=== PATIENT | female | born 2000 | race African-American/Black ===

== ENCOUNTER → 2022-01-10 15:47 | Outpatient (CLI) | payer OTHER, MEDICAID, SELFPAY ==
[2022-01-10 16:40] LABS: Influenza A - CEPHEID Flu A NEGATIVE (NEGATIVE); Influenza B - CEPHEID Flu B NEGATIVE (NEGATIVE); Respiratory Syncytial Virus Negative (Negative)
[2022-01-10 16:46] LABS: COVID-19 CEPHEID 4-PLEX PCR Negative (Negative)
== END ==
PROVIDERS: Visit Provider Nurse Practitioner Family
DX: R09.81 Nasal congestion (principal)
CPT/HCPCS: 0241U

== ENCOUNTER 2022-03-19 09:44 | Inpatient (IN) | payer OTHER, MEDICAID, SELFPAY ==
[2022-03-19] VITALS (35 sets, daily range): BP systolic 86–130; BP diastolic 53–84; PULSE 75–127; RESP 15–36; TEMP 36.7–39.4; O2SAT 93–100; BMI 17.6; BMI 18.8
--- NOTE | 2022-03-19 09:57 | DI.RAD.S_ITS ---
PROCEDURE: XR CHEST 1V INDICATIONS: suspected sepsis TECHNIQUE: One view of the chest was acquired. COMPARISON: None. FINDINGS: Surgical changes and devices: None. Lungs and pleura: On this semiupright portable chest examination, no large pneumothorax or large pleural effusions are seen. No focal infiltrates are seen. Mediastinum: Mediastinal contours appear normal. Heart size is normal. Bones and chest wall: No suspicious bony lesions. Overlying soft tissues appear unremarkable. IMPRESSION: No focal infiltrates are seen. Dictated by: Robb Larios M.D. on 03/19/2022 at 9:41 Approved by: Robb Larios M.D. on 03/19/2022 at 9:41
[2022-03-19 10:18] LABS: Add Manual Diff / Slide Review NO; Basophils Absolute Auto 0 /uL (0-100); Basophils Percent Auto 0.8 % (0-2); Eosinophils Absolute Auto 0 /uL (0-450); Hematocrit 28.3 % (36-46); Hemoglobin 9.4 g/dL (12.0-16.0); Lymphocytes Absolute Auto 1200 /uL (1100-4500); Lymphocytes Percent Auto 37.3 % (25-40); Mean Corpuscular HGB Conc 33.1 % (30-36); Mean Corpuscular Volume 84.5 fL (80-100); Monocytes Absolute Auto 100 /uL (0-900); Monocytes Percent Auto 3.3 % (3-14); Neutrophils Absolute Auto 1800 /uL (1500-7000); Neutrophils Percent Auto 58.6 % (50-75); Platelet Count 145 X10^3/uL (150-400); Red Blood Cell Count 3.35 X10^6/uL (4.0-5.2); Red Cell Distribution Width 15.3 % (11.6-14.8); White Blood Cell Count 3.1 X10^3/uL (4.5-11.0)
[2022-03-19 10:20] LABS: INR 1.2 (0.9-1.3); Prothrombin Time 13.6 SECONDS (10.1-12.7)
[2022-03-19 10:23] LABS: PTT Partial Thromboplastin Tim 36 SECONDS (26-36)
[2022-03-19 10:24] LABS: Alanine Aminotransferase 45 IU/L (<35); Albumin 4.1 g/dL (3.5-5.0); Albumin Globulin Ratio 0.7 (1.0-2.8); Alkaline Phosphatase 61 U/L (38-126); Aspartate Aminotransferase 139 IU/L (14-36); BUN Creatinine Ratio 15.5 (6-22); Blood Urea Nitrogen 9 mg/dL (7-17); Calcium 8.2 mg/dL (8.4-10.2); Carbon Dioxide 22 mmol/L (22-32); Chloride 90 mmol/L (98-107); Estimated Glomerular Filt Rate > 60 mL/min (>60); Globulin 5.6 g/dL (1.7-4.1); Glucose 93 mg/dL (70-100); Lactate (Lactic Acid) 1.3 mmol/L (0.7-2.1); Lipase 445 U/L (23-300); Potassium 3.9 mmol/L (3.4-5.1); Sodium 126 mmol/L (137-145); Total Protein 9.7 g/dL (6.3-8.2)
[2022-03-19] MEDS: SODIUM CHLORIDE 0.9% 1,000 ML 1000 ML IV (10:39)
[2022-03-19 10:40] LABS: Influenza A - CEPHEID Flu A NEGATIVE (NEGATIVE); Influenza B - CEPHEID Flu B NEGATIVE (NEGATIVE); Respiratory Syncytial Virus Negative (Negative)
[2022-03-19] MEDS: ACETAMINOPHEN 325 MG TABLET 975 MG PO (10:41)
[2022-03-19] MEDS: ONDANSETRON 4 MG/2 ML INJ IV (10:41)
[2022-03-19 10:42] LABS: HEMOLYSIS < 15 (0-50); Procalcitonin 1.17 ng/mL (<0.5)
--- NOTE | 2022-03-19 10:56 | ED.FEVER ---
HPI - Fever General Chief Complaint: Fever Stated Complaint: 5 days vomitting, hx of RA, lethargic Time Seen by Provider: 03/19/22 10:27 Source: patient Mode of arrival: Ambulatory Limitations: no limitations History of Present Illness HPI Narrative: This is a 22-year-old female with history of rheumatoid arthritis who has been off medications for about a year. She states she was on prednisone before she is never been on any other immune modulators. No other daily medications she has had a cholecystectomy. She presents with fevers, decreased appetite, cough with brownish sputum, nausea and vomiting no bowel movement for the past 5 days. Patient states she is had some chest pain some sensation of shortness of breath. She states she is had some brown productive sputum no bright red blood. She states she is had pain she describes it more on the left side of her abdomen in the left flank and side. Patient states no bowel movement in the past 5 days but has been stooling regularly. She states she is been able to keep some fluids down but no solids. She presents today with her persistent symptoms. Patient states she is allergic to Toradol makes her feel tingling, numb and rash out. No tobacco, no alcohol, no illicit. She does not have a primary care currently. She is accompanied by Estee who is a friend/landlord. Patient lab work noted that she has pancytopenia patient is not aware of any history of anemia or other changes to her blood work in the past. No priors available for comparison. Related Data Home Medications Medication Instructions Recorded Confirmed No Known Home Medications 03/19/22 03/19/22 Allergies Allergy/AdvReac Type Severity Reaction Status Date / Time ketorolac [From Toradol] AdvReac tingling Verified 03/19/22 10:04 and numbness Review of Systems Review of Systems ROS Unobtainable: All systems reviewed & are unremarkable except as noted in HPI and below Patient History Medical History (Updated 03/19/22 @ 15:16 by Yanick Olivares DO) Rheumatoid arthritis Surgical History (Updated 03/19/22 @ 15:16 by Yanick Olivares DO) History of cholecystectomy Family History (Updated 03/19/22 @ 15:17 by Yanick Olivares DO) Mother Arthritis Father No pertinent past medical history Social History Smoking Status: Former smoker alcohol intake: current Smoking Status: Former smoker alcohol intake frequency: 0-2 drinks per day Substance Use Type: marijuana Exam Narrative Exam Narrative: GEN: Thin female, alert and oriented x 3, patient appears to be in moderate distress. HEENT: Atraumatic, pupils are equal round reactive to light, extraocular movements are intact, nares are clear, no hoarseness. No meningeal signs. HEART: Tachycardic but Regular rate and rhythm without murmur, clicks, rubs. No JVD. LUNGS:Lungs clear to auscultation, no wheezes, rales, crackles, chest moves symmetrically, mild tachypnea. Patient has dry nonproductive cough in the room. ABD:bowel sounds normal, soft, patient has mild tenderness but significantly so right upper quadrant., no guarding, rebound, rigidity, no masses noted, no hepatosplenomegaly, nondistended. :No CVA tenderness MSCL: Non-tender, no muscle atrophy, muscles strength 5/5 upper and lower extremities, full range of motion NEURO:CN 2-12 intact, sensation normal SKIN: Rash, erythema or other skin changes. Initial Vital Signs Initial Vital Signs: Vital Signs Temperature 102.9 F H 03/19/22 09:50 Pulse Rate 127 H 03/19/22 09:50 Respiratory Rate 28 H 03/19/22 09:50 Blood Pressure 130/68 03/19/22 09:50 Pulse Oximetry 100 03/19/22 09:50 Oxygen Delivery Method 03/19/22 09:50 Course Orders Ordered: ED Orders 03/19/22 09:55 Complete Blood Count AUTO DIFF Stat Comprehensive Metabolic Panel Stat Lactate (Lactic Acid) Stat Lipase Stat Partial Thromboplastin Time Stat Test Serum,Qual Stat Procalcitonin Stat Prothrombin Time INR Stat 03/19/22 09:57 XR chest 1V Stat 03/19/22 10:48 EKG-12 Lead Stat 03/19/22 11:07 CT abdomen pelvis w con Stat 03/19/22 11:20 Blood Culture Stat 03/19/22 11:34 UA Complete [Urinalysis and Microscopic] Stat Acetaminophen (Acetaminophen 325 Mg Tablet) 650 mg PO Q6H PRN PRN Reason: Fever/Mild Pain (1-3) Enoxaparin Sodium (Enoxaparin 40 Mg/0.4 Ml Syringe) 40 mg SUBCUT DAILY [facility] Hydromorphone HCl (Hydromorphone 0.5 Mg Inj) 0.5 mg IV Q4H PRN PRN Reason: Pain, Severe (7-10) Last Admin: 03/19/22 15:22 Dose: 0.5 mg Documented By: MOSES Sodium Chloride (Normal Saline 0.9%) 1,000 mls @ 100 mls/hr IV CONT ALISA Last Admin: 03/19/22 15:19 Dose: 100 mls/hr Documented By: MOSES Ceftriaxone Sodium 2,000 mg/ (Sodium Chloride) 100 mls @ 200 mls/hr IV Q24H [facility] Last Infusion: 03/19/22 17:36 Dose: 0 mls/hr Documented By: Admin: 03/19/22 16:17 Dose: 200 mls/hr Documented By: MOSES Azithromycin 500 mg/ Dextrose 250 mls @ 250 mls/hr IV Q24H [facility] Stop: 03/22/22 17:59 Last Admin: 03/19/22 17:36 Dose: 250 mls/hr Documented By: MOSES Ibuprofen (Ibuprofen 600 Mg Tablet) 600 mg PO Q6H PRN PRN Reason: Fever/Mild Pain (1-3) Naloxone HCl (Naloxone 0.4 Mg/Ml Vial) 0.2 mg IV Q2MIN PRN PRN Reason: Opiate Reversal Ondansetron HCl (Ondansetron 4 Mg/2 Ml Inj) 4 mg IV Q8HR PRN PRN Reason: Nausea And Vomiting Oxycodone HCl (Oxycodone Ir 5 Mg Tablet) 5 mg PO Q3H PRN PRN Reason: Pain, Moderate (4-6) Discontinued Medications Acetaminophen (Acetaminophen 325 Mg Tablet) 975 mg PO NOW ONE Stop: 03/19/22 10:28 Last Admin: 03/19/22 10:41 Dose: 975 mg Documented By: MC Sodium Chloride (Normal Saline 0.9%) 1,000 mls @ 1,000 mls/hr IV BOLUS ONE Stop: 03/19/22 10:56 Last Infusion: 03/19/22 11:30 Dose: 0 mls/hr Documented By: Admin: 03/19/22 10:39 Dose: 1,000 mls/hr Documented By: MC Lactated Ringer's (Lactated Ringers) 1,728.18 mls @ 576.06 mls/hr 30 ml/kg infuse over 3 hr (1728.18 ml) IV NOW ONE Stop: 03/19/22 14:06 Last Infusion: 03/19/22 14:39 Dose: 0 mls/hr Documented By: Infusion: 03/19/22 13:18 Dose: 999 mls/hr Documented By: Admin: 03/19/22 11:45 Dose: 576.06 mls/hr Documented By: MOISÉS Piperacillin Sod/Tazobactam (Sod 4.5 gm/ Sodium Chloride) 100 mls @ 200 mls/hr IV NOW ONE Stop: 03/19/22 11:08 Last Infusion: 03/19/22 12:37 Dose: 0 mls/hr Documented By: Admin: 03/19/22 11:52 Dose: 200 mls/hr Documented By: MOISÉS Acetaminophen (Ofirmev) 1,000 mg in 100 mls @ 400 mls/hr IV NOW ONE Stop: 03/19/22 12:14 Last Infusion: 03/19/22 13:20 Dose: 0 mls/hr Documented By: Admin: 03/19/22 13:04 Dose: 400 mls/hr Documented By: MOISÉS Vancomycin HCl (Vancomycin) 1,000 mg in 200 mls @ 200 mls/hr IV NOW ONE Stop: 03/19/22 14:06 Last Infusion: 03/19/22 14:30 Dose: 0 mls/hr Documented By: MOISÉS(2) Admin: 03/19/22 13:22 Dose: 200 mls/hr Documented By: MOISÉS Lactated Ringer's (Lactated Ringers) 1,000 mls @ 1,000 mls/hr IV BOLUS ONE Stop: 03/19/22 14:29 Last Admin: 03/19/22 14:30 Dose: 1,000 mls/hr Documented By: MOISÉS(2) Morphine Sulfate (Morphine 4 Mg/Ml Inj) 4 mg IV NOW ONE Stop: 03/19/22 11:08 Last Admin: 03/19/22 11:41 Dose: 4 mg Documented By: MOISÉS Ondansetron HCl (Ondansetron 4 Mg/2 Ml Inj) 4 mg IV NOW PRN PRN Reason: Nausea And Vomiting Last Admin: 03/19/22 10:41 Dose: 4 mg Documented By: MC Vital Signs Vital signs: Vital Signs - 8 hr 03/19/22 10:41 03/19/22 10:30 03/19/22 10:39 Temperature 102.3 F H Pulse Rate 105 H Respiratory Rate 36 H Blood Pressure 116/80 Pulse Oximetry 99 Oxygen Delivery Method 03/19/22 10:39 03/19/22 10:45 03/19/22 10:45 Temperature Pulse Rate 107 H 113 H Respiratory Rate 27 H 35 H Blood Pressure 121/83 Pulse Oximetry 100 100 Oxygen Delivery Method Room Air 03/19/22 11:00 03/19/22 11:00 03/19/22 11:15 Temperature Pulse Rate 102 H Respiratory Rate 28 H Blood Pressure 123/78 126/84 Pulse Oximetry 100 Oxygen Delivery Method 03/19/22 11:15 03/19/22 11:43 03/19/22 11:47 Temperature Pulse Rate 104 H 97 H 101 H Respiratory Rate 33 H Blood Pressure Pulse Oximetry 100 100 100 Oxygen Delivery Method 03/19/22 11:47 03/19/22 12:00 03/19/22 12:00 Temperature Pulse Rate 97 H Respiratory Rate 21 Blood Pressure 108/67 111/67 Pulse Oximetry 99 Oxygen Delivery Method 03/19/22 12:15 03/19/22 12:15 03/19/22 12:30 Temperature Pulse Rate 94 H Respiratory Rate 26 H Blood Pressure 97/53 L 95/53 L Pulse Oximetry 100 Oxygen Delivery Method 03/19/22 12:30 03/19/22 13:00 03/19/22 13:00 Temperature 100 F H Pulse Rate 93 H 97 H Respiratory Rate 28 H 33 H Blood Pressure 86/64 L Pulse Oximetry 100 100 Oxygen Delivery Method Room Air 03/19/22 13:01 03/19/22 13:01 03/19/22 13:15 Temperature Pulse Rate 93 H Respiratory Rate 27 H Blood Pressure 89/61 L 95/64 Pulse Oximetry 100 Oxygen Delivery Method 03/19/22 13:15 03/19/22 13:27 03/19/22 13:27 Temperature Pulse Rate 83 86 Respiratory Rate 24 Blood Pressure 100/59 L Pulse Oximetry 100 100 Oxygen Delivery Method Room Air 03/19/22 13:30 03/19/22 13:30 Temperature Pulse Rate 87 Respiratory Rate 21 Blood Pressure 110/65 Pulse Oximetry 99 Oxygen Delivery Method Room Air MDM - Fever Lab Data 03/19/22 09:55 03/19/22 09:55 Labs: Lab Results 03/19/22 03/19/22 03/19/22 Range/Units 08:55 09:55 09:55 WBC 3.1 L (4.5-11.0) X10^3/uL RBC 3.35 L (4.0-5.2) X10^6/uL Hgb 9.4 L (12.0-16.0) g/dL Hct 28.3 L (36-46) % MCV 84.5 (80-100) fL MCH 28.0 (26-34) PG MCHC 33.1 (30-36) % RDW 15.3 H (11.6-14.8) % Plt Count 145 L (150-400) X10^3/uL Neut % (Auto) 58.6 (50-75) % Lymph % (Auto) 37.3 (25-40) % Gordon % (Auto) 3.3 (3-14) % Eos % (Auto) 0.0 L (2-4) % Baso % (Auto) 0.8 (0-2) % Neut # (Auto) 1800 (9950-7482) /uL Lymph # (Auto) 1200 (5393-9146) /uL Gordon # (Auto) 100 (0-900) /uL Eos # (Auto) 0 (0-450) /uL Baso # (Auto) 0 (0-100) /uL ESR (0-20) MM/HR PT 13.6 H (10.1-12.7) SECONDS INR 1.2 (0.9-1.3) APTT 36 (26-36) SECONDS Sodium (137-145) mmol/L Potassium (3.4-5.1) mmol/L Chloride (98-107) mmol/L Carbon Dioxide (22-32) mmol/L BUN (7-17) mg/dL Creatinine (0.52-1.04) mg/dL Estimated GFR (>60) mL/min BUN/Creatinine Ratio (6-22) Glucose (70-100) mg/dL Lactate (0.7-2.1) mmol/L Calcium (8.4-10.2) mg/dL Total Bilirubin (0.2-1.3) mg/dL AST (14-36) IU/L ALT (<35) IU/L Alkaline Phosphatase (38-126) U/L C-Reactive Protein (<1.0) mg/dL Total Protein (6.3-8.2) g/dL Albumin (3.5-5.0) g/dL Globulin (1.7-4.1) g/dL Albumin/Globulin Ratio (1.0-2.8) Lipase (23-300) U/L Procalcitonin (<0.5) ng/mL Serum , Qual (Negative) Urine Color Urine Appearance Urine pH (4.5-8.0) Ur Specific [place] (1.000-1.035) Urine Protein (Negative) Urine Glucose (UA) (Negative) g/dL Urine Ketones (NEGATIVE) Urine Occult Blood (Negative) Urine Nitrate (Negative) Urine Bilirubin (NEGATIVE) Urine Urobilinogen (0.2) E.U./dL Ur Leukocyte Esterase (NEGATIVE) Urine RBC (0-5/HPF) Urine WBC (0-5/HPF) Ur Squamous Epith Cells (0-5/HPF) Amorphous Sediment Urine Bacteria (None) Ur Culture Indicated? SARS-CoV-2 (PCR) Negative (Negative) Influenza A (RT-PCR) Flu a negative (NEGATIVE) Influenza B (RT-PCR) Flu b negative (NEGATIVE) RSV (PCR) Negative (Negative) Blood Type Antibody Screen 03/19/22 03/19/22 03/19/22 Range/Units 09:55 09:55 09:55 WBC (4.5-11.0) X10^3/uL RBC (4.0-5.2) X10^6/uL Hgb (12.0-16.0) g/dL Hct (36-46) % MCV (80-100) fL MCH (26-34) PG MCHC (30-36) % RDW (11.6-14.8) % Plt Count (150-400) X10^3/uL Neut % (Auto) (50-75) % Lymph % (Auto) (25-40) % Gordon % (Auto) (3-14) % Eos % (Auto) (2-4) % Baso % (Auto) (0-2) % Neut # (Auto) (1530-7982) /uL Lymph # (Auto) (8319-8589) /uL Gordon # (Auto) (0-900) /uL Eos # (Auto) (0-450) /uL Baso # (Auto) (0-100) /uL ESR (0-20) MM/HR PT (10.1-12.7) SECONDS INR (0.9-1.3) APTT (26-36) SECONDS Sodium 126 L (137-145) mmol/L Potassium 3.9 (3.4-5.1) mmol/L Chloride 90 L (98-107) mmol/L Carbon Dioxide 22 (22-32) mmol/L BUN 9 (7-17) mg/dL Creatinine 0.58 (0.52-1.04) mg/dL Estimated GFR > 60 (>60) mL/min BUN/Creatinine Ratio 15.5 (6-22) Glucose 93 (70-100) mg/dL Lactate 1.3 (0.7-2.1) mmol/L Calcium 8.2 L (8.4-10.2) mg/dL Total Bilirubin 1.0 (0.2-1.3) mg/dL AST 139 H (14-36) IU/L ALT 45 H (<35) IU/L Alkaline Phosphatase 61 (38-126) U/L C-Reactive Protein (<1.0) mg/dL Total Protein 9.7 H (6.3-8.2) g/dL Albumin 4.1 (3.5-5.0) g/dL Globulin 5.6 H (1.7-4.1) g/dL Albumin/Globulin Ratio 0.7 L (1.0-2.8) Lipase 445 H (23-300) U/L Procalcitonin 1.17 H (<0.5) ng/mL Serum , Qual Negative (Negative) Urine Color Urine Appearance Urine pH (4.5-8.0) Ur Specific [place] (1.000-1.035) Urine Protein (Negative) Urine Glucose (UA) (Negative) g/dL Urine Ketones (NEGATIVE) Urine Occult Blood (Negative) Urine Nitrate (Negative) Urine Bilirubin (NEGATIVE) Urine Urobilinogen (0.2) E.U./dL Ur Leukocyte Esterase (NEGATIVE) Urine RBC (0-5/HPF) Urine WBC (0-5/HPF) Ur Squamous Epith Cells (0-5/HPF) Amorphous Sediment Urine Bacteria (None) Ur Culture Indicated? SARS-CoV-2 (PCR) (Negative) Influenza A (RT-PCR) (NEGATIVE) Influenza B (RT-PCR) (NEGATIVE) RSV (PCR) (Negative) Blood Type Antibody Screen 03/19/22 03/19/22 03/19/22 Range/Units 09:55 09:55 11:34 WBC (4.5-11.0) X10^3/uL RBC (4.0-5.2) X10^6/uL Hgb (12.0-16.0) g/dL Hct (36-46) % MCV (80-100) fL MCH (26-34) PG MCHC (30-36) % RDW (11.6-14.8) % Plt Count (150-400) X10^3/uL Neut % (Auto) (50-75) % Lymph % (Auto) (25-40) % Gordon % (Auto) (3-14) % Eos % (Auto) (2-4) % Baso % (Auto) (0-2) % Neut # (Auto) (7779-9751) /uL Lymph # (Auto) (7071-4033) /uL Gordon # (Auto) (0-900) /uL Eos # (Auto) (0-450) /uL Baso # (Auto) (0-100) /uL ESR 99 H (0-20) MM/HR PT (10.1-12.7) SECONDS INR (0.9-1.3) APTT (26-36) SECONDS Sodium (137-145) mmol/L Potassium (3.4-5.1) mmol/L Chloride (98-107) mmol/L Carbon Dioxide (22-32) mmol/L BUN (7-17) mg/dL Creatinine (0.52-1.04) mg/dL Estimated GFR (>60) mL/min BUN/Creatinine Ratio (6-22) Glucose (70-100) mg/dL Lactate (0.7-2.1) mmol/L Calcium (8.4-10.2) mg/dL Total Bilirubin (0.2-1.3) mg/dL AST (14-36) IU/L ALT (<35) IU/L Alkaline Phosphatase (38-126) U/L C-Reactive Protein 2.7 H (<1.0) mg/dL Total Protein (6.3-8.2) g/dL Albumin (3.5-5.0) g/dL Globulin (1.7-4.1) g/dL Albumin/Globulin Ratio (1.0-2.8) Lipase (23-300) U/L Procalcitonin (<0.5) ng/mL Serum , Qual (Negative) Urine Color Yellow Urine Appearance Clear Urine pH 7.0 (4.5-8.0) Ur Specific [place] 1.010 (1.000-1.035) Urine Protein Trace H (Negative) Urine Glucose (UA) Negative (Negative) g/dL Urine Ketones Trace H (NEGATIVE) Urine Occult Blood Negative (Negative) Urine Nitrate Negative (Negative) Urine Bilirubin Negative (NEGATIVE) Urine Urobilinogen 1.0 (0.2) E.U./dL Ur Leukocyte Esterase Negative (NEGATIVE) Urine RBC None seen (0-5/HPF) Urine WBC 0-1/hpf (0-5/HPF) Ur Squamous Epith Cells 0-1 /hpf (0-5/HPF) Amorphous Sediment 1+ Urine Bacteria None seen (None) Ur Culture Indicated? Cult not indicated SARS-CoV-2 (PCR) (Negative) Influenza A (RT-PCR) (NEGATIVE) Influenza B (RT-PCR) (NEGATIVE) RSV (PCR) (Negative) Blood Type Antibody Screen 03/19/22 Range/Units 13:16 WBC (4.5-11.0) X10^3/uL RBC (4.0-5.2) X10^6/uL Hgb (12.0-16.0) g/dL Hct (36-46) % MCV (80-100) fL MCH (26-34) PG MCHC (30-36) % RDW (11.6-14.8) % Plt Count (150-400) X10^3/uL Neut % (Auto) (50-75) % Lymph % (Auto) (25-40) % Gordon % (Auto) (3-14) % Eos % (Auto) (2-4) % Baso % (Auto) (0-2) % Neut # (Auto) (4301-0183) /uL Lymph # (Auto) (0820-4352) /uL Gordon # (Auto) (0-900) /uL Eos # (Auto) (0-450) /uL Baso # (Auto) (0-100) /uL ESR (0-20) MM/HR PT (10.1-12.7) SECONDS INR (0.9-1.3) APTT (26-36) SECONDS Sodium (137-145) mmol/L Potassium (3.4-5.1) mmol/L Chloride (98-107) mmol/L Carbon Dioxide (22-32) mmol/L BUN (7-17) mg/dL Creatinine (0.52-1.04) mg/dL Estimated GFR (>60) mL/min BUN/Creatinine Ratio (6-22) Glucose (70-100) mg/dL Lactate (0.7-2.1) mmol/L Calcium (8.4-10.2) mg/dL Total Bilirubin (0.2-1.3) mg/dL AST (14-36) IU/L ALT (<35) IU/L Alkaline Phosphatase (38-126) U/L C-Reactive Protein (<1.0) mg/dL Total Protein (6.3-8.2) g/dL Albumin (3.5-5.0) g/dL Globulin (1.7-4.1) g/dL Albumin/Globulin Ratio (1.0-2.8) Lipase (23-300) U/L Procalcitonin (<0.5) ng/mL Serum , Qual (Negative) Urine Color Urine Appearance Urine pH (4.5-8.0) Ur Specific [place] (1.000-1.035) Urine Protein (Negative) Urine Glucose (UA) (Negative) g/dL Urine Ketones (NEGATIVE) Urine Occult Blood (Negative) Urine Nitrate (Negative) Urine Bilirubin (NEGATIVE) Urine Urobilinogen (0.2) E.U./dL Ur Leukocyte Esterase (NEGATIVE) Urine RBC (0-5/HPF) Urine WBC (0-5/HPF) Ur Squamous Epith Cells (0-5/HPF) Amorphous Sediment Urine Bacteria (None) Ur Culture Indicated? SARS-CoV-2 (PCR) (Negative) Influenza A (RT-PCR) (NEGATIVE) Influenza B (RT-PCR) (NEGATIVE) RSV (PCR) (Negative) Blood Type O Positive Antibody Screen Negative Imaging Data Chest x-ray: Radiologist's Impression: [address] [address] XRay Report Signed Patient: Cristin Grier MR#: [id number] : 2000 Acct:[id number] Age/Sex: 22 / F Date of Service: 03/19/22 Loc: ED Accession Number: [id number] ?? Procedure: XR chest 1V Ordering Provider: Daniela Josue D.O. PROCEDURE:? XR CHEST 1V ? INDICATIONS:? suspected sepsis ? TECHNIQUE:? One view of the chest was acquired.? ? COMPARISON:? None. ? FINDINGS:? ? Surgical changes and devices:? None.? ? Lungs and pleura:? On this semiupright portable chest examination, no large pneumothorax or large pleural effusions are seen.? No focal infiltrates are seen.? ? Mediastinum:? Mediastinal contours appear normal.? Heart size is normal.? ? Bones and chest wall:? No suspicious bony lesions.? Overlying soft tissues appear unremarkable.? IMPRESSION:? No focal infiltrates are seen. ? ? Dictated by: Robb Larios M.D. on 03/19/2022 at 9:41 ? ? Approved by: Robb Larios M.D. on 03/19/2022 at 9:41?? CT scan - abdomen/pelvis: Radiologist's Impression: [address] [address] [address] Scan Report Signed Patient: Cristin Grier MR#: [id number] : 2000 Acct:[id number] Age/Sex: 22 / F Date of Service: 03/19/22 Loc: ED Accession Number: [id number] ?? Procedure: CT abdomen pelvis w con Ordering Provider: Daniela Josue D.O. PROCEDURE:? CT ABDOMEN PELVIS W CON ? INDICATIONS:? ruq pain, hx mary anne, fever, n/v no BM x 5 days. +flatus ? TECHNIQUE:? After the administration of IV contrast, axial sections were acquired from the lung bases to the pubic symphysis.? Coronal and sagittal reformats were performed.? For radiation dose reduction, the following was used:? automated exposure control, adjustment of mA and/or kV according to patient size. ? COMPARISON:? None. ? FINDINGS:? Image quality:? Excellent.? ? Lung bases:? Unremarkable.? ? Heart:? No significant findings. ? ? ABDOMEN: Liver:? No focal lesion.? Periportal edema.? ? Gallbladder:? Absent. Biliary ducts:? Unremarkable.? ? Pancreas:? Unremarkable.? ? Spleen:? Unremarkable.? ? Adrenal Glands:? No nodule. Kidneys and Ureters:? No hydronephrosis. ? Stomach and Bowel:? Stomach, small bowel loops, and colon are unremarkable.? The appendix is not dilated. Peritoneum:? No abnormal intraperitoneal fluid.? No free air.? ? Ventral Wall: ? No hernia.? Abdominal Nodes:? No retroperitoneal or mesenteric adenopathy by size criteria.? Vessels:? Aorta and inferior vena cava are normal in size.? ? PELVIS: Pelvic Organs:? Anteverted uterus.? ? Bladder:? No stone.? Mildly distended. Pelvic Nodes: No enlarged lymph nodes.? Miscellaneous: No inguinal hernias are seen. ? ? ? Bones:? No suspicious lesion. ? ? IMPRESSION:? Suspect periportal edema.? This is a nonspecific finding but could be seen in the setting of hepatitis or duodenitis. ? No small bowel obstruction. The appendix is not dilated No free fluid.? ? Dictated by: Sudheer Shafer M.D. on 03/19/2022 at 13:11 ? ? Approved by: Sudheer Shafer M.D. on 03/19/2022 at 13:18?? ECG Data Attestation: I personally reviewed and interpreted this ECG as follows: Interpretation: Sinus tachycardia rate of 101 TX 136 QRS is 70 QTC of 409. No acute ST elevation depression noted. MDM Narrative Medical decision making narrative: This is a 19-year-old female who presents with fever, tachycardia patient does have a history of rheumatoid arthritis she is been off her medications for at least a year she is on prednisone previously but she states not any other immune modulators. Patient has had history of remote cholecystectomy she is had symptoms for 5 days some see more upper respiratory or possibly pneumonia but she is also had abdominal pain and nausea and vomiting but no bowel movement for 5 days but is passing gas regularly. She complains more of left-sided pain but on examination she is significantly tender in the right upper quadrant. Patient has cough in the room but lungs are clear. Labs show pancytopenia with a white count of 3.1 hemoglobin 9 4 crit of 28 platelets 141 unclear if this is new or old for her or change from her baseline. Coags are normal, she does have hyponatremia with a sodium of 126, potassium 0.9, chloride 90, CO2 22 with a BUN of 9 creatinine 0.58, glucose of 93 and a lactate of 1.3. Bili is 1, AST is 139, ALT is 45 alk phos 61 lipase is 445. Procalcitonin 0.17. Patient started on sepsis fluids 30 cc/kilos bolus, Zofran, dose of pain medication and plan for oral Tylenol when she is able to tolerate. Patient was covered with initial dose of Zosyn for suspected intra-abdominal infection. Chest x-ray is clear and based on her tenderness CT abdomen pelvis was ordered and patient has suspected periportal edema nonspecific finding but could be seen in the setting hepatitis or duodenitis otherwise negative. Chest x-ray negative. No exact clear source is found for patient. She had a dip in her blood pressure given additional fluids does seem to be helpful. I spoke with Dr. Kennedy who accepts for observation for sepsis but no clear source, pancytopenia, elevated LFTs. Critical Care Time Critical Care Time Critical Care Time: Yes Total Critical Care Time: 45 Attestation: The high probability of a clinically significant, sudden or life threatening deterioration of the [cardiac, pulm] system(s) required my full and direct attention, intervention and personal management. The aggregate critical care time was [] minutes. This time is in addition to time spent performing reported procedures but includes the following: [x] Data Review and interpretation [x] Patient assessment and monitoring of vital signs [x] Documentation [x] Medication orders and management Discharge Plan Departure Patient Disposition: Admitted As Inpatient Clinical Impression: Sepsis, Pancytopenia Admit Date/Time: 03/19/22 13:32 Admit Provider: Yanick Olivares
--- NOTE | 2022-03-19 11:07 | DI.CT.S_ITS ---
PROCEDURE: CT ABDOMEN PELVIS W CON INDICATIONS: ruq pain, hx mary anne, fever, n/v no BM x 5 days. +flatus TECHNIQUE: After the administration of IV contrast, axial sections were acquired from the lung bases to the pubic symphysis. Coronal and sagittal reformats were performed. For radiation dose reduction, the following was used: automated exposure control, adjustment of mA and/or kV according to patient size. COMPARISON: None. FINDINGS: Image quality: Excellent. Lung bases: Unremarkable. Heart: No significant findings. ABDOMEN: Liver: No focal lesion. Periportal edema. Gallbladder: Absent. Biliary ducts: Unremarkable. Pancreas: Unremarkable. Spleen: Unremarkable. Adrenal Glands: No nodule. Kidneys and Ureters: No hydronephrosis. Stomach and Bowel: Stomach, small bowel loops, and colon are unremarkable. The appendix is not dilated. Peritoneum: No abnormal intraperitoneal fluid. No free air. Ventral Wall: No hernia. Abdominal Nodes: No retroperitoneal or mesenteric adenopathy by size criteria. Vessels: Aorta and inferior vena cava are normal in size. PELVIS: Pelvic Organs: Anteverted uterus. Bladder: No stone. Mildly distended. Pelvic Nodes: No enlarged lymph nodes. Miscellaneous: No inguinal hernias are seen. Bones: No suspicious lesion. IMPRESSION: Suspect periportal edema. This is a nonspecific finding but could be seen in the setting of hepatitis or duodenitis. No small bowel obstruction. The appendix is not dilated No free fluid. Dictated by: Sudheer Shafer M.D. on 03/19/2022 at 13:11 Approved by: Sudheer Shafer M.D. on 03/19/2022 at 13:18
[2022-03-19 11:27] LABS: Pregnancy Test Serum,Qual Negative (Negative)
[2022-03-19 11:28] LABS: COVID-19 CEPHEID 4-PLEX PCR Negative (Negative)
[2022-03-19] MEDS: MORPHINE 4 MG/ML INJ IV ×2 (11:41→20:35)
--- NOTE | 2022-03-19 11:43 | PC.NURSE ---
1050, vomited tylenol, [address] Josue aware.
[2022-03-19] MEDS: LACTATED RINGERS 576.06 ML IV (11:45)
[2022-03-19] MEDS: PIPERACILLIN/TAZO 4.5 GM in SODIUM CHLORIDE 0.9% 100 ML IV (11:52)
[2022-03-19 12:07] LABS: Appearance Urine UA CLEAR; Bilirubin Urine UA NEGATIVE (NEGATIVE); Color Urine UA YELLOW; Glucose Urine UA NEGATIVE (Negative); Ketones Urine UA TRACE (NEGATIVE); Leukocyte Esterase Urine UA NEGATIVE (NEGATIVE); Nitrite Urine UA NEGATIVE (Negative); Occult Blood Urine UA NEGATIVE (Negative); Protein Urine UA TRACE (Negative)
[2022-03-19 12:35] LABS: RBC Urine None Seen (0-5/HPF)
[2022-03-19 12:37] LABS: Amorphous Sediment Urine 1+; Bacteria Urine None Seen; Culture Indicated Urine Cult Not Indicated; Squamous Epithelial Cell Urine 0-1 /HPF (0-5/HPF); WBC Urine 0-1/HPF (0-5/HPF)
[2022-03-19] MEDS: ACETAMINOPHEN IV 1,000 MG/100 ML VIAL 400 MG IV (13:04)
[2022-03-19] MEDS: VANCOMYCIN 1,000 MG/200 ML PIGGYBACK 200 MG IV (13:22)
[2022-03-19 13:51] LABS: C-Reactive Protein Quant 2.7 mg/dL (<1.0)
[2022-03-19 13:59] LABS: Erythrocyte Sedimentation Rate 99 MM/HR (0-20)
[2022-03-19] MEDS: LACTATED RINGERS 1,000 ML 1000 ML IV (14:30)
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
[2022-03-19] MEDS: SODIUM CHLORIDE 0.9% 1,000 ML 100 ML IV (15:19)
[2022-03-19] MEDS: HYDROMORPHONE 0.5 MG INJ IV ×2 (15:22→18:15)
[2022-03-19 15:45] LABS: Alanine Aminotransferase 39 IU/L (<35); Albumin 3.1 g/dL (3.5-5.0); Albumin Globulin Ratio 0.7 (1.0-2.8); Alkaline Phosphatase 45 U/L (38-126); Aspartate Aminotransferase 117 IU/L (14-36); BUN Creatinine Ratio 14.3 (6-22); Bilirubin Total 0.8 mg/dL (0.2-1.3); Blood Urea Nitrogen 8 mg/dL (7-17); Calcium 7.3 mg/dL (8.4-10.2); Carbon Dioxide 23 mmol/L (22-32); Chloride 97 mmol/L (98-107); Estimated Glomerular Filt Rate > 60 mL/min (>60); Globulin 4.6 g/dL (1.7-4.1); Glucose 84 mg/dL (70-100); HEMOLYSIS < 15 (0-50); Potassium 3.5 mmol/L (3.4-5.1); Sodium 130 mmol/L (137-145); Total Protein 7.7 g/dL (6.3-8.2)
[2022-03-19 15:47] LABS: D Dimer 78987 ng/ml (<500)
--- NOTE | 2022-03-19 15:53 | DI.CT.S_ITS ---
PROCEDURE: CT ANGIO CHEST PE PROTOCOL INDICATIONS: Please evaluate for PE TECHNIQUE: After the administration of intravenous contrast, 2 mm thick sections acquired from the pulmonary apices to the posterior costophrenic angles. 3-dimensional maximum intensity projection (MIP) coronal and sagittal reformats were then acquired through the thorax. For radiation dose reduction, the following was used: automated exposure control, adjustment of mA and/or kV according to patient size. COMPARISON: [facility], CT, CT ABDOMEN PELVIS W CON, 03/19/2022, 12:39. [facility], CR, XR CHEST 1V, 03/19/2022, 9:59. FINDINGS: Image quality: Excellent. Pulmonary arteries: Pulmonary arteries are normal in size, and demonstrate no intraluminal filling defects to suggest central pulmonary embolism. Lungs and pleura: Lungs are clear. No pleural effusions or pneumothorax. Central and peripheral airways are patent. Mediastinum: Heart size is normal, without pericardial effusion. No mediastinal or hilar adenopathy. Thoracic aorta is normal in caliber and enhancement. Esophagus is normal in caliber, without hiatal hernia. Bones and chest wall: No suspicious bony lesions. Ribs and thoracic spine appear intact throughout. Mild levoconvex scoliotic curvature is noted. Thyroid gland demonstrates no significant abnormality. Prominent left axillary lymph are seen, with the largest solitary seen on series 4, image 30 measuring 21 x 12 mm greatest axial dimension. Abdomen: Excreting contrast is seen the renal collecting systems, from the contrast administration earlier in the day. The visualized portions of the upper abdominal structures are otherwise unremarkable for imaging technique. IMPRESSION: Negative for pulmonary embolism. Clear lungs. Enlarged left axillary nodes can be seen. Additional findings: Levoconvex scoliotic curvature Dictated by: oRbb Larios M.D. on 03/19/2022 at 15:45 Approved by: Robb Larios M.D. on 03/19/2022 at 15:49
[2022-03-19] MEDS: cefTRIAXone 2,000 MG in SODIUM CHLORIDE 0.9% 100 ML 200 MG IV (16:17)
--- NOTE | 2022-03-19 17:11 | DI.ECHO.S_ITS ---
[facility] +---------+ : : [address] : : : : [address] : : : : [place], : : : : [place] [id number] : : : : Phone: [phone] [phone] Echocardiogram Report + + :Name: ASIA LARSON Study Date: 03/20/2022 Height: 61 in : :[facility] ReadingLocation: [facility] Weight: 135 lb : : Gender: Female BSA: 1.6 m2 : :: 2000 Age: 22 yrs BP: 126/88 mmHg: :Reason For Study: Chest Pain : : Performed By: Jaelyn Erickson : :Referring: ADE MACHADO : + + Interpretation Summary 1) Normal left ventricular thickness, size, wall motion, and systolic function (EF 60-65%). 2) Mildly enlarged right ventricle with normal function. 3) No significant valvular abnormalities. 4) There appears to be gastric hernia on the parasternal windows. Correlate clinically and consider dedicated images to evaluate further. 5) No prior Echo available for comparison. Procedure: A two-dimensional transthoracic echocardiogram with color flow and Doppler was performed. The study quality was technically adequate. There is no prior echocardiogram noted for this patient. The patient was in normal sinus rhythm during the exam. Left Ventricle: The left ventricle is normal in size and wall thickness. The ejection fraction is estimated to be 60-65%. Left ventricular systolic function appears normal without focal wall motion abnormalities. Diastolic parameters suggest a relaxation abnormality of the left ventricle, consistent with probable normal filling pressures. Right Ventricle: The right ventricle is mildly dilated. The right ventricular systolic function is normal. Atria: Borderline left atrial enlargement. The right atrium is mildly dilated. There is no Doppler evidence for an interatrial shunt. Mitral Valve: The mitral valve is normal. There is no mitral valve stenosis. There is trace mitral regurgitation. Aortic Valve: The aortic valve is trileaflet. The aortic valve opens well. There is no aortic valve stenosis. No aortic regurgitation is present. Tricuspid Valve: The tricuspid valve is normal. There is no tricuspid stenosis. There is trace tricuspid regurgitation. The right ventricular systolic pressure is estimated to be at least 21 mmHg based on an estimated right atrial pressure of 8 mm Hg. Pulmonic Valve: The pulmonic valve leaflets are thin and pliable; valve motion is normal. There is no pulmonic valvular stenosis. There is trace pulmonic regurgitation. Great Vessels: The aortic root is normal size. The ascending aorta is normal in size. The pulmonary artery is normal size. The IVC is dilated (diameter is greater than 2.1 cm) yet it collapses greater than 50% with a sniff. This suggests a right atrial pressure of 8 mm Hg. Pericardium/ Pleura There is no pericardial effusion. MMode/2D Measurements & Calculations LVIDd: 4.4 cm AoV Openin.1 cm LVIDs: 2.2 cm LVOT diam: 2.1 cm IVSd: 1.1 cm Ao root diam: 3.1 cm LVPWd: 0.87 cm asc Aorta Diam: 3.0 cm LV carroll. diameter/BSA (cm/m^2): 2.8 LV sys. diameter/BSA (cm/m^2): 1.4 FS: 49.0 % LA A2 area: 17.1 cm2 RA long axis: 4.5 cm LA A4 area: 17.0 cm2 RA area: 14.6 cm2 LA length (vol): 4.7 cm RA vol: 40.3 ml LA vol: 52.5 ml RA : 25.2 ml/m2 LA vol index: 32.8 ml/m2 TAPSE: 2.2 cm IVC diam: 2.2 cm Doppler Measurements & Calculations Ao V2 max: 170.4 cm/sec LVOT Max Brian: 118.4 cm/sec Ao V2 mean: 110.9 cm/sec LV V1 max P.6 mmHg Ao V2 VTI: 27.2 cm LV V1 VTI: 19.3 cm Ao max P.6 mmHg Ao mean P.7 mmHg MAN(I,D): 2.5 cm2 MV E max brian: 98.7 cm/sec MAN(V,D): 2.5 cm2 MV A max brian: 61.4 cm/sec MAN indexed to BSA (cm^2/m^2): 1.6 MV E/A: 1.6 sev ratio: 0.71 Med Peak E' Brian: 18.8 cm/sec E/E' med: 5.2 Lat Peak E' Brian: 19.3 cm/sec E/E' lat: 5.1 E/e' average: 5.2 MV dec time: 0.13 sec TR max brian: 198.4 cm/sec TR max P.7 mmHg PA V2 max: 97.6 cm/sec SV(LVOT): 68.9 ml PA V2 mean: 70.5 cm/sec PA mean P.3 mmHg PA pr(Accel): 37.0 mmHg Reading Physician:11:47 AM
[2022-03-19] MEDS: AZITHROMYCIN 500 MG in DEXTROSE 5% IN WATER 250 ML 250 MG IV (17:36)
[2022-03-19] MEDS: LORazepam 2 MG/ML INJ 0.5 MG IV (20:35)
[2022-03-20] VITALS (26 sets, daily range): BP systolic 107–135; BP diastolic 63–89; PULSE 75–116; RESP 17–22; TEMP 36.1–39.5; O2SAT 59–100
[2022-03-20] MEDS: MORPHINE 4 MG/ML INJ IV ×2 (00:17→08:12)
[2022-03-20] MEDS: LORazepam 2 MG/ML INJ 0.5 MG IV ×4 (00:17→20:28)
[2022-03-20] MEDS: BENZONATATE 100 MG CAPSULE PO (01:51)
[2022-03-20] MEDS: ACETAMINOPHEN 325 MG TABLET 650 MG PO ×2 (01:51→08:12)
[2022-03-20] MEDS: TRAZODONE 50 MG TABLET PO ×3 (01:51→20:28)
[2022-03-20 02:46] LABS: Ur Creatinine 20 (Normal); Ur Specific Gravity 1.025 (Normal); Urine pH 5 (Normal)
[2022-03-20 02:47] LABS: UR Morphine/Opiate cutoff 300 Positive (Negative); Urine Amphetamines Negative (Negative); Urine Barbiturates Negative (Negative); Urine Benzodiazepines Negative (Negative); Urine Cocaine Negative (Negative); Urine MDMA Negative (Negative); Urine Methadone Negative (Negative); Urine Methamphetamines Negative (Negative); Urine Oxycodone Negative (Negative); Urine Phencyclidine Negative (Negative); Urine Tetrahydrocannabinol Positive (Negative); Urine Tricyclic Antidepressant Negative (Negative)
[2022-03-20] MEDS: SODIUM CHLORIDE 0.9% 1,000 ML 100 ML IV ×2 (02:58→12:35)
[2022-03-20 04:56] LABS: Add Manual Diff / Slide Review NO; Basophils Absolute Auto 0 /uL (0-100); Basophils Percent Auto 0.3 % (0-2); Eosinophils Absolute Auto 0 /uL (0-450); Hematocrit 24.3 % (36-46); Hemoglobin 8.3 g/dL (12.0-16.0); Lymphocytes Absolute Auto 500 /uL (1100-4500); Lymphocytes Percent Auto 17.1 % (25-40); Mean Corpuscular HGB Conc 34.1 % (30-36); Mean Corpuscular Hemoglobin 28.4 PG (26-34); Mean Corpuscular Volume 83.4 fL (80-100); Monocytes Absolute Auto 100 /uL (0-900); Monocytes Percent Auto 3.4 % (3-14); Neutrophils Absolute Auto 2400 /uL (1500-7000); Neutrophils Percent Auto 79.2 % (50-75); Platelet Count 112 X10^3/uL (150-400); Red Blood Cell Count 2.92 X10^6/uL (4.0-5.2); Red Cell Distribution Width 15.3 % (11.6-14.8); White Blood Cell Count 3.1 X10^3/uL (4.5-11.0)
[2022-03-20 05:08] LABS: Alanine Aminotransferase 44 IU/L (<35); Albumin 3.3 g/dL (3.5-5.0); Albumin Globulin Ratio 0.7 (1.0-2.8); Alkaline Phosphatase 55 U/L (38-126); Aspartate Aminotransferase 123 IU/L (14-36); BUN Creatinine Ratio 10.3 (6-22); Bilirubin Total 0.6 mg/dL (0.2-1.3); Blood Urea Nitrogen 4 mg/dL (7-17); Calcium 7.2 mg/dL (8.4-10.2); Carbon Dioxide 23 mmol/L (22-32); Chloride 99 mmol/L (98-107); Estimated Glomerular Filt Rate > 60 mL/min (>60); Globulin 4.6 g/dL (1.7-4.1); Glucose 102 mg/dL (70-100); HEMOLYSIS < 15 (0-50); Magnesium 1.8 mg/dL (1.6-2.3); Sodium 130 mmol/L (137-145); Total Protein 7.9 g/dL (6.3-8.2)
[2022-03-20] MEDS: POTASSIUM CHLORIDE 20 MEQ TAB 40 MEQ PO (06:06)
[2022-03-20] MEDS: ENOXAPARIN 40 MG/0.4 ML SYRINGE SUBCUT (08:12)
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
[2022-03-20] MEDS: HYDROMORPHONE 2 MG INJ IV (10:09)
[2022-03-20] MEDS: IBUPROFEN 600 MG TABLET PO (11:02)
[2022-03-20 11:06] LABS: Acinetobacter baumannii Not Detected (Not Detect); Candida albicans Not Detected (Not Detect); Candida glabrata Not Detected (Not Detect); Candida krusei Not Detected (Not Detect); Candida parapsilosis Not Detected (Not Detect); Candida tropicalis Not Detected (Not Detect); E. coli Not Detected (Not Detect); Enterobacter cloacae complex Not Detected (Not Detect); Enterobacteriaceae species Not Detected (Not Detect); Enterococcus species Not Detected (Not Detect); Haemophilus influenzae Not Detected (Not Detect); Listeria monocytogenes Not Detected (Not Detect); Methicillin-resistant gene Not Detected (Not Detect); Neisseria meningitidis Not Detected (Not Detect); Proteus species Not Detected (Not Detect); Pseudomonas aeruginosa Not Detected (Not Detect); Serratia marcescens Not Detected (Not Detect); Staphylococcus species Detected (Not Detect); Streptococcus agalactiae (Gr B Not Detected (Not Detect); Streptococcus pneumonia Not Detected (Not Detect); Streptococcus pyogenes (Gr A) Not Detected (Not Detect); Streptococcus species Not Detected (Not Detect)
--- NOTE | 2022-03-20 13:37 | PM.PROC.1 ---
Procedures Date/Time Date of procedure: 03/20/22 Time of procedure: 13:00 Lumbar Puncture Pre-procedure diagnosis: Possible meningitis Post-procedure diagnosis: same Time Out Performed: Yes Patient Position: left lateral decubitus Skin Prep: Povidone-Iodine 1% Local anesthetic used: Lidocaine 2% (4 mL) Sedation: other (Ativan prior to procedure) Needle size: 20 ga Needle length: 2.5 Interspace: L3/L4 Number of attempts: 1 Opening pressure: # cm H2O (20) Fluid collected (mL): 12 Fluid description: clear Complications: No Patient tolerance: Patient tolerated the procedure well. Comments: This is a 22 year old female admitted with sepsis. There is concern for viral or less likely bacterial meningitis. Discussed risks, benefits, and alternatives for her lumbar puncture. Patient was agreeable to proceed. She was placed in the left lateral decubitus position. Ultrasound and palpation was used to locate the L3/4 interspace. The area was marked and then prepped in the usual sterile fashion. Anesthesia was acheived with 2% lidocaine. A small dose of Ativan was given just prior to the procedure as well. The needle was inserted with return of clear fluid. Opening Pressure was measured at 20 cm H20. Approximately 12 mL of clear fluid was collected into 4 tubes and is being sent for diagnostic evaluation. The needle was removed. there was no bleeding and patient tolerated the procedure well. She was instructed to lie flat for half an hour after the procedure. No complications were noted.
[2022-03-20 13:46] LABS: Glucose CSF 52 mg/dL (40-70); Total Protein CSF 59 mg/dL (12-60)
--- NOTE | 2022-03-20 13:57 | P.PN_ITS ---
Subjective Subjective Date Patient Seen: 03/20/22 Interval history: Patient without much improvement today, but nausea is a bit better with medications. Continues to complain of severe joint pain and bone pain. Exam Vital Signs (past 8 hours): - 03/20/22 07:00 03/20/22 08:12 03/20/22 10:09 Temperature 100.7 F H 102.7 F H Pulse Rate Blood Pressure Pulse Oximetry Oxygen Delivery Method Room Air 03/20/22 10:50 03/20/22 11:02 03/20/22 12:00 Temperature 103.1 F H 103.1 F H 100 F H Pulse Rate Blood Pressure Pulse Oximetry Oxygen Delivery Method 03/20/22 07:58 03/20/22 08:00 03/20/22 10:04 Temperature Pulse Rate 78 Blood Pressure 126/88 135/89 Pulse Oximetry 59 L Oxygen Delivery Method 03/20/22 10:04 03/20/22 10:30 03/20/22 11:00 Temperature Pulse Rate 116 H 111 H Blood Pressure 126/67 Pulse Oximetry 86 L 99 Oxygen Delivery Method 03/20/22 11:00 03/20/22 11:30 03/20/22 12:00 Temperature Pulse Rate 116 H 111 H Blood Pressure 124/69 Pulse Oximetry 99 98 Oxygen Delivery Method 03/20/22 12:00 03/20/22 12:30 03/20/22 13:00 Temperature Pulse Rate 115 H 101 H Blood Pressure 107/63 Pulse Oximetry 100 100 Oxygen Delivery Method 03/20/22 13:00 Temperature Pulse Rate 94 H Blood Pressure Pulse Oximetry 100 Oxygen Delivery Method Oxygen Delivery Method Room Air Oxygen Flow Rate 0 Narrative Exam Narrative: General:?Tall, thin female in no acute distress, but acutely ill. HEENT:? Normocephalic, atraumatic, extraocular muscles intact, oral pharynx is clear and mucous membranes are moist today Neck: supple and symmetric, trachea is midline, no cervical adenopathy. Chest:? Normal AP diameter and contour without kyphoscoliosis, no tachypnea, equal chest rise bilaterally. Lungs:?CTA b/l. Cardio:?RRR no m/r/g. Abdomen: soft, non-distended, non-tender Musculoskeletal:? Muscle strength and tone are equal within normal limits, no deformity. Extremities: No edema or joint effusions. No cyanosis or clubbing. Skin:? Pale,? Warm to touch,dry and intact without rashes, ulcerations or petechiae.? Neuro:? Alert and orientated x3,? sensation to touch intact in all extremities, no gross deficits noted of cranial nerves. Psych:? Patient has a well-kept appearance, appropriate affect, mental status attitude thought context and judgment are appropriate for age. Objective Labs 03/20/22 04:39 03/20/22 04:39 Labs: Laboratory Results - last 24 hr 03/19/22 03/19/22 03/19/22 09:55 11:15 13:16 WBC RBC Hgb Hct MCV MCH MCHC RDW Plt Count Neut % (Auto) Lymph % (Auto) [place] % (Auto) Eos % (Auto) Baso % (Auto) Neut # (Auto) Lymph # (Auto) [place] # (Auto) Eos # (Auto) Baso # (Auto) ESR 99 H D-Dimer Sodium Potassium Chloride Carbon Dioxide BUN Creatinine Estimated GFR BUN/Creatinine Ratio Glucose Calcium Magnesium Total Bilirubin AST ALT Alkaline Phosphatase Total Protein Albumin Globulin Albumin/Globulin Ratio CSF Glucose CSF Total Protein Nasal Screen MRSA (PCR) U Opiates 300ng/mL cut Ur Oxycodone Screen Urine Methadone Screen Ur Barbiturates Screen U Tricyclic Antidepress Ur Phencyclidine Scrn Ur Amphetamines Screen U Methamphetamines Scrn Ur MDMA Scrn (Ecstasy) U Benzodiazepines Scrn Urine Cocaine Screen U Marijuana (THC) Screen A. baumannii (PCR) Not detected Jeane albicans (PCR) Not detected C. glabrata (PCR) Not detected C. krusei (PCR) Not detected C. parapsilosis (PCR) Not detected C. tropicalis (PCR) Not detected Enterobacteriac sp PCR Not detected E. cloacae complex PCR Not detected Enterococcus sp PCR Not detected E. coli (PCR) Not detected H. influenzae (PCR) Not detected Klebsiella oxytoca PCR Not detected Klebsiella pneumoniae Not detected List. monocytogenes PCR Not detected N. meningitidis (PCR) Not detected Proteus species (PCR) Not detected Serratia marcescens PCR Not detected Staphylococcus sp PCR Detected H Staph aureus (PCR) Not detected mecA-Methicil Res Gene Not detected Streptococcus sp PCR Not detected Group A Strep (PCR) Not detected Strep agalactiae (PCR) Not detected Strep pneumoniae (PCR) Not detected P. aeruginosa (PCR) Not detected Jj/B-Vanco Res Genes Not Reportable KPC-Carbap Res Gene PCR Not Reportable Blood Type O Positive Antibody Screen Negative 03/19/22 03/19/22 03/19/22 15:00 15:25 15:25 WBC RBC Hgb Hct MCV MCH MCHC RDW Plt Count Neut % (Auto) Lymph % (Auto) [place] % (Auto) Eos % (Auto) Baso % (Auto) Neut # (Auto) Lymph # (Auto) [place] # (Auto) Eos # (Auto) Baso # (Auto) ESR D-Dimer 05366 H Sodium 130 L Potassium 3.5 Chloride 97 L Carbon Dioxide 23 BUN 8 Creatinine 0.56 Estimated GFR > 60 BUN/Creatinine Ratio 14.3 Glucose 84 Calcium 7.3 L Magnesium Total Bilirubin 0.8 AST 117 H ALT 39 H Alkaline Phosphatase 45 Total Protein 7.7 Albumin 3.1 L Globulin 4.6 H Albumin/Globulin Ratio 0.7 L CSF Glucose CSF Total Protein Nasal Screen MRSA (PCR) Negative for mrsa U Opiates 300ng/mL cut Ur Oxycodone Screen Urine Methadone Screen Ur Barbiturates Screen U Tricyclic Antidepress Ur Phencyclidine Scrn Ur Amphetamines Screen U Methamphetamines Scrn Ur MDMA Scrn (Ecstasy) U Benzodiazepines Scrn Urine Cocaine Screen U Marijuana (THC) Screen A. baumannii (PCR) Jeane albicans (PCR) C. glabrata (PCR) C. krusei (PCR) C. parapsilosis (PCR) C. tropicalis (PCR) Enterobacteriac sp PCR E. cloacae complex PCR Enterococcus sp PCR E. coli (PCR) H. influenzae (PCR) Klebsiella oxytoca PCR Klebsiella pneumoniae List. monocytogenes PCR N. meningitidis (PCR) Proteus species (PCR) Serratia marcescens PCR Staphylococcus sp PCR Staph aureus (PCR) mecA-Methicil Res Gene Streptococcus sp PCR Group A Strep (PCR) Strep agalactiae (PCR) Strep pneumoniae (PCR) P. aeruginosa (PCR) Jj/B-Vanco Res Genes KPC-Carbap Res Gene PCR Blood Type Antibody Screen 03/20/22 03/20/22 03/20/22 02:34 04:39 04:39 WBC 3.1 L RBC 2.92 L Hgb 8.3 L Hct 24.3 L MCV 83.4 MCH 28.4 MCHC 34.1 RDW 15.3 H Plt Count 112 L Neut % (Auto) 79.2 H D Lymph % (Auto) 17.1 L D [place] % (Auto) 3.4 Eos % (Auto) 0.0 L Baso % (Auto) 0.3 Neut # (Auto) 2400 Lymph # (Auto) 500 L [place] # (Auto) 100 Eos # (Auto) 0 Baso # (Auto) 0 ESR D-Dimer Sodium 130 L Potassium 3.0 L Chloride 99 Carbon Dioxide 23 BUN 4 L Creatinine 0.39 L Estimated GFR > 60 BUN/Creatinine Ratio 10.3 Glucose 102 H Calcium 7.2 L Magnesium 1.8 Total Bilirubin 0.6 AST 123 H ALT 44 H Alkaline Phosphatase 55 Total Protein 7.9 Albumin 3.3 L Globulin 4.6 H Albumin/Globulin Ratio 0.7 L CSF Glucose CSF Total Protein Nasal Screen MRSA (PCR) U Opiates 300ng/mL cut Positive H Ur Oxycodone Screen Negative Urine Methadone Screen Negative Ur Barbiturates Screen Negative U Tricyclic Antidepress Negative Ur Phencyclidine Scrn Negative Ur Amphetamines Screen Negative U Methamphetamines Scrn Negative Ur MDMA Scrn (Ecstasy) Negative U Benzodiazepines Scrn Negative Urine Cocaine Screen Negative U Marijuana (THC) Screen Positive H A. baumannii (PCR) Jeane albicans (PCR) C. glabrata (PCR) C. krusei (PCR) C. parapsilosis (PCR) C. tropicalis (PCR) Enterobacteriac sp PCR E. cloacae complex PCR Enterococcus sp PCR E. coli (PCR) H. influenzae (PCR) Klebsiella oxytoca PCR Klebsiella pneumoniae List. monocytogenes PCR N. meningitidis (PCR) Proteus species (PCR) Serratia marcescens PCR Staphylococcus sp PCR Staph aureus (PCR) mecA-Methicil Res Gene Streptococcus sp PCR Group A Strep (PCR) Strep agalactiae (PCR) Strep pneumoniae (PCR) P. aeruginosa (PCR) Jj/B-Vanco Res Genes KPC-Carbap Res Gene PCR Blood Type Antibody Screen 03/20/22 13:15 WBC RBC Hgb Hct MCV MCH MCHC RDW Plt Count Neut % (Auto) Lymph % (Auto) [place] % (Auto) Eos % (Auto) Baso % (Auto) Neut # (Auto) Lymph # (Auto) [place] # (Auto) Eos # (Auto) Baso # (Auto) ESR D-Dimer Sodium Potassium Chloride Carbon Dioxide BUN Creatinine Estimated GFR BUN/Creatinine Ratio Glucose Calcium Magnesium Total Bilirubin AST ALT Alkaline Phosphatase Total Protein Albumin Globulin Albumin/Globulin Ratio CSF Glucose 52 CSF Total Protein 59 Nasal Screen MRSA (PCR) U Opiates 300ng/mL cut Ur Oxycodone Screen Urine Methadone Screen Ur Barbiturates Screen U Tricyclic Antidepress Ur Phencyclidine Scrn Ur Amphetamines Screen U Methamphetamines Scrn Ur MDMA Scrn (Ecstasy) U Benzodiazepines Scrn Urine Cocaine Screen U Marijuana (THC) Screen A. baumannii (PCR) Jeane albicans (PCR) C. glabrata (PCR) C. krusei (PCR) C. parapsilosis (PCR) C. tropicalis (PCR) Enterobacteriac sp PCR E. cloacae complex PCR Enterococcus sp PCR E. coli (PCR) H. influenzae (PCR) Klebsiella oxytoca PCR Klebsiella pneumoniae List. monocytogenes PCR N. meningitidis (PCR) Proteus species (PCR) Serratia marcescens PCR Staphylococcus sp PCR Staph aureus (PCR) mecA-Methicil Res Gene Streptococcus sp PCR Group A Strep (PCR) Strep agalactiae (PCR) Strep pneumoniae (PCR) P. aeruginosa (PCR) Jj/B-Vanco Res Genes KPC-Carbap Res Gene PCR Blood Type Antibody Screen PFSH Medical History (Updated 03/19/22 @ 15:16 by Yanick Olivares DO) Rheumatoid arthritis Surgical History (Updated 03/19/22 @ 15:16 by Yanick Olivares DO) History of cholecystectomy Family History (Updated 03/19/22 @ 15:17 by Yanick Olivares DO) Mother Arthritis Father No pertinent past medical history Social History household members: none Smoking Status: Former smoker alcohol intake: current Assessment & Plan Assessment & Plan narrative: 1. Sepsis, possible pneumonia with hypotension, thrombocytopenia - febrile to near 103 in the ER with hypotension. given zosyn and sepsis bolusing in the ER. Vague joint pains with abdominal, chest pain, and shortness of breath. Thus far infectious workup does not reveal a definitive source. LP performed today, results pending. Blood cultures with staph sp. in 1/4 bottles, likely contaminant. - HIV and hepeatitis panel pending from today. LP performed today, results to come soon. - continue ceftriaxone, azithomycin for possible pneumonia with given symptoms of chest pain and shortness of breath. Possible viral hepatitis as periportal edema noted on abdominal CT? Depending on LP results consider additional vancomycin for resistant and steroids or antiviral therapies. - TTE unremarkable with no pericardial thickening or effusion. - admitted to ICU with hypotension in the setting of sepsis. - D-dimer 06191, CTA negative for PE. - consider non-infectious causes - ? lymphoma or could be inflammatory. Assess response to antiboitic therapy and fluids. - no recent travel, no rash to suggest tick borne illness. - patient has family from [place], but was [place] and has lived here her whole life. history of viral meningitis at age 15 (treated at [facility] in [place]), records request pending. 2. Pancytopenia - may have chronic inflammation with history of rheumatoid, may also be in setting of active infection - continue to follow - check HIV, hepatitis as noted above 3. Elevated transaminase levels - Abdominal CT without biliary pathology. - possible acute hepatitis with periportal edema, check Hep B, C and A serologies. 4. Acute hyponatremia - in setting of hypovolemic from vomiting. - continue NS, improved on repeat labs to 130 from 126. 5. History of rhematoid - cannot rule out active rheumatic disease with joint pains, consider steroids. Elevated ESR at 99 and CRP 2.7. Nonspecific elevations however. Code: Full, surrogate decision maker is patient's friend Francisca I have utilized all available immediate resources to obtain, update, or review the patient's current medications. Dispo: admit to ICU, possible downgrade if BP stabilizes after fluid. I spent 45 minutes providing critical care management this patient. This excludes time spent in performing separately billed procedures. COVID-19 COVID-19 status: Negative Time Spent With Patient Critical Care time: I spent a total of [] minutes of critical care time on this patient's care today; this time is exclusive of procedural time. Quality VTE Deep Vein Thrombosis/Pulmonary Embolism Present on Admission: No
[2022-03-20 14:16] LABS: HOLD TUBE CSF FROZE
[2022-03-20 14:16] LABS: Appearance CSF C (Clear); CSF Tube Number 2; CSF Tube Volume 3.0 mL; Color CSF Colorless (Colorless)
[2022-03-20 14:17] LABS: Red Blood Cell CSF 0 RBC /uL; White Blood Cell CSF 1 MONO/uL (0-5)
[2022-03-20 14:45] LABS: HIV 1 & 2 Ab/Ag 4th Gen Combo NEGATIVE (NEGATIVE); Hep C Virus Ab w/Reflex Quant NEGATIVE s/c (NEGATIVE); Hepatitis B Surface Antigen NEGATIVE s/c (NEGATIVE)
[2022-03-20 14:57] LABS: Cryptococcus neoformans/gattii Not Detected (Not Detect); Enterovirus Not Detected (Not Detect); Escherichia coli K1 Not Detected (Not Detect); Haemophilus influenzae Not Detected (Not Detect); Herpes simplex virus 1 Not Detected (Not Detect); Herpes simplex virus 2 Not Detected (Not Detect); Human herpesvirus 6 Not Detected (Not Detect); Human parechovirus Not Detected (Not Detect); Listeria monocytogenes Not Detected (Not Detect); Neisseria meningitidis Not Detected (Not Detect); Streptococcus agalactiae Not Detected (Not Detect); Streptococcus pneumoniae Not Detected (Not Detect); Varicella Zoster Virus Not Detected (Not Detecte)
[2022-03-20] MEDS: cefTRIAXone 2,000 MG in SODIUM CHLORIDE 0.9% 100 ML 200 MG IV (17:11)
[2022-03-20] MEDS: AZITHROMYCIN 500 MG in DEXTROSE 5% IN WATER 250 ML 250 MG IV (17:53)
[2022-03-20] MEDS: methylPREDNISolone 1,000 MG in SODIUM CHLORIDE 0.9% 250 ML 125 MG IV (18:10)
[2022-03-20] MEDS: OXYCODONE IR 5 MG TABLET 10 MG PO (20:28)
[2022-03-20] MEDS: SODIUM CHLORIDE 0.9% FLUSH 10 ML IV (20:29)
[2022-03-20] MEDS: POTASSIUM CHLORIDE IN WATER 10 MEQ/100 ML PIGGYBACK 100 MEQ IV ×2 (22:07→23:12)
[2022-03-21] MEDS: POTASSIUM CHLORIDE IN WATER 10 MEQ/100 ML PIGGYBACK 100 MEQ IV ×2 (00:15→01:25)
[2022-03-21] MEDS: MORPHINE 4 MG/ML INJ IV ×3 (00:21→17:38)
[2022-03-21 01:00] VITALS: BP 105/68; PULSE 73; RESP 16; TEMP 36.4; O2SAT 100
[2022-03-21 04:26] LABS: Hematocrit 25.5 % (36-46); Hemoglobin 8.7 g/dL (12.0-16.0); Mean Corpuscular HGB Conc 34.1 % (30-36); Mean Corpuscular Hemoglobin 28.3 PG (26-34); Mean Corpuscular Volume 82.9 fL (80-100); Platelet Count 118 X10^3/uL (150-400); Red Blood Cell Count 3.07 X10^6/uL (4.0-5.2); Red Cell Distribution Width 15.4 % (11.6-14.8)
[2022-03-21 04:33] LABS: Fibrinogen 234 mg/dL (211-428)
[2022-03-21 04:39] LABS: Triglycerides 166 mg/dL (35-150)
[2022-03-21 04:41] LABS: Alanine Aminotransferase 49 IU/L (<35); Albumin 3.4 g/dL (3.5-5.0); Albumin Globulin Ratio 0.7 (1.0-2.8); Alkaline Phosphatase 62 U/L (38-126); Aspartate Aminotransferase 120 IU/L (14-36); BUN Creatinine Ratio 5.9 (6-22); Bilirubin Total 0.8 mg/dL (0.2-1.3); Blood Urea Nitrogen 2 mg/dL (7-17); Calcium 7.5 mg/dL (8.4-10.2); Carbon Dioxide 27 mmol/L (22-32); Chloride 95 mmol/L (98-107); Estimated Glomerular Filt Rate > 60 mL/min (>60); Glucose 138 mg/dL (70-100); HEMOLYSIS < 15 (0-50); Potassium 3.6 mmol/L (3.4-5.1); Sodium 131 mmol/L (137-145); Total Protein 8.4 g/dL (6.3-8.2)
[2022-03-21 04:42] LABS: Rheumatoid Factor 16.9 IU/mL (<12.0)
[2022-03-21 04:48] LABS: Lactate Dehydrogenase 1418 U/L (120-246)
[2022-03-21 04:52] LABS: Add Manual Diff / Slide Review YES; White Blood Cell Count 1.2 X10^3/uL (4.5-11.0)
[2022-03-21] MEDS: SODIUM CHLORIDE 0.9% 1,000 ML 100 ML IV ×2 (05:22→15:40)
[2022-03-21 06:47] LABS: Ferritin 5340 ng/mL (6-137)
[2022-03-21 07:13] LABS: Neutrophils Absolute Manual 768 /uL (3000-5900); Total Cells Counted 50
[2022-03-21 07:15] LABS: Anisocytosis 1+
[2022-03-21 07:30] VITALS: BP 121/86; PULSE 60; RESP 17; TEMP 36.9; O2SAT 100
[2022-03-21] MEDS: ENOXAPARIN 40 MG/0.4 ML SYRINGE SUBCUT (08:56)
[2022-03-21] MEDS: SODIUM CHLORIDE 0.9% FLUSH 10 ML IV ×2 (08:58→20:38)
[2022-03-21] MEDS: IBUPROFEN 600 MG TABLET PO ×2 (09:39→15:34)
[2022-03-21 09:45] LABS: Hepatitis B Core Antibody Negative (Negative)
--- NOTE | 2022-03-21 12:03 | P.PN_ITS ---
Subjective Subjective Date Patient Seen: 03/21/22 Interval history: Patient a bit better today, last fever yesterday AM, but more nauseous today after pulse dose steroids started. Discussed with hematology, recommended for transfer for heme and rheum guidance of therapy, for now to continue steroids. She will also need Anakinra, not available at [facility]. Exam Vital Signs (past 8 hours): - 03/21/22 07:30 03/21/22 07:00 Temperature 98.4 F Pulse Rate 60 Respiratory Rate 17 Blood Pressure 121/86 Pulse Oximetry 100 Oxygen Delivery Method Room Air Oxygen Flow Rate 0 Oxygen Delivery Method Room Air Oxygen Flow Rate 0 Narrative Exam Narrative: General:?Tall, thin female in no acute distress, but acutely ill. HEENT:? Normocephalic, atraumatic, extraocular muscles intact, oral pharynx is clear and mucous membranes are moist today Neck: supple and symmetric, trachea is midline, no cervical adenopathy. Chest:? Normal AP diameter and contour without kyphoscoliosis, no tachypnea, equal chest rise bilaterally. Lungs:?CTA b/l. Cardio:?RRR no m/r/g. Abdomen: soft, non-distended, non-tender Musculoskeletal:? Muscle strength and tone are equal within normal limits, no deformity. Extremities: No edema or joint effusions. No cyanosis or clubbing. Skin:? Pale,? Warm to touch,dry and intact without rashes, ulcerations or petechiae.? Neuro:? Alert and orientated x3,? sensation to touch intact in all extremities, no gross deficits noted of cranial nerves. Psych:? Patient has a well-kept appearance, appropriate affect, mental status attitude thought context and judgment are appropriate for age. Objective Labs 03/21/22 04:07 03/21/22 04:07 Labs: Laboratory Results - last 24 hr 03/19/22 03/20/22 03/20/22 15:25 04:39 04:39 WBC RBC Hgb Hct MCV MCH MCHC RDW Plt Count Neut % (Auto) Lymph % (Auto) [place] % (Auto) Eos % (Auto) Baso % (Auto) Lymph # (Auto) [place] # (Auto) Baso # (Auto) Total Counted Seg Neutrophils % Band Neutrophils % Lymphocytes % (Manual) Monocytes % (Manual) Neutrophils # (Manual) RBC Morphology Anisocytosis Fibrinogen Sodium Potassium Chloride Carbon Dioxide BUN Creatinine Estimated GFR BUN/Creatinine Ratio Glucose Calcium Magnesium Ferritin Total Bilirubin AST ALT Alkaline Phosphatase Lactate Dehydrogenase Total Protein Albumin Globulin Albumin/Globulin Ratio Triglycerides CSF Tube Number CSF Volume CSF Appearance CSF Color CSF WBC CSF RBC CSF Mononuclear WBCs CSF Polynuclear WBCs CSF Glucose CSF Total Protein CSF C.neoform/gat PCR CSF CMV DNA (PCR) CSF Enterovirus (PCR) CSF E. coli (PCR) CSF H. influenzae (PCR) CSF HSV I (PCR) CSF HSV II (PCR) CSF HHV 6 (PCR) CSF L.monocytogenes PCR CSF N. meningitidis PCR CSF Parechovirus (PCR) CSF S. agalactiae (PCR) CSF S. pneumoniae (PCR) CSF VZV (PCR) Rheumatoid Factor Hep Bs Antigen Negative Hep B Core Total Ab Negative Hepatitis C Antibody Negative HIV 1&2 Ab/P24 Ag 4thGn Negative 03/20/22 03/20/22 03/20/22 13:15 13:15 13:15 WBC RBC Hgb Hct MCV MCH MCHC RDW Plt Count Neut % (Auto) Lymph % (Auto) [place] % (Auto) Eos % (Auto) Baso % (Auto) Lymph # (Auto) [place] # (Auto) Baso # (Auto) Total Counted Seg Neutrophils % Band Neutrophils % Lymphocytes % (Manual) Monocytes % (Manual) Neutrophils # (Manual) RBC Morphology Anisocytosis Fibrinogen Sodium Potassium Chloride Carbon Dioxide BUN Creatinine Estimated GFR BUN/Creatinine Ratio Glucose Calcium Magnesium Ferritin Total Bilirubin AST ALT Alkaline Phosphatase Lactate Dehydrogenase Total Protein Albumin Globulin Albumin/Globulin Ratio Triglycerides CSF Tube Number 2 CSF Volume 3.0 ml CSF Appearance C CSF Color Colorless CSF WBC 1 CSF RBC 0 CSF Mononuclear WBCs Not Reportable CSF Polynuclear WBCs Not Reportable CSF Glucose 52 CSF Total Protein 59 CSF C.neoform/gat PCR Not detected CSF CMV DNA (PCR) Not detected CSF Enterovirus (PCR) Not detected CSF E. coli (PCR) Not detected CSF H. influenzae (PCR) Not detected CSF HSV I (PCR) Not detected CSF HSV II (PCR) Not detected CSF HHV 6 (PCR) Not detected CSF L.monocytogenes PCR Not detected CSF N. meningitidis PCR Not detected CSF Parechovirus (PCR) Not detected CSF S. agalactiae (PCR) Not detected CSF S. pneumoniae (PCR) Not detected CSF VZV (PCR) Not detected Rheumatoid Factor Hep Bs Antigen Hep B Core Total Ab Hepatitis C Antibody HIV 1&2 Ab/P24 Ag 4thGn 03/21/22 03/21/22 03/21/22 04:07 04:07 04:07 WBC 1.2 L* D RBC 3.07 L Hgb 8.7 L Hct 25.5 L MCV 82.9 MCH 28.3 MCHC 34.1 RDW 15.4 H Plt Count 118 L Neut % (Auto) Not Reportable Lymph % (Auto) Not Reportable [place] % (Auto) Not Reportable Eos % (Auto) Not Reportable Baso % (Auto) Not Reportable Lymph # (Auto) Not Reportable [place] # (Auto) Not Reportable Baso # (Auto) Not Reportable Total Counted 50 Seg Neutrophils % 60.0 Band Neutrophils % 4.0 Lymphocytes % (Manual) 32.0 Monocytes % (Manual) 4.0 Neutrophils # (Manual) 768 L RBC Morphology See below Anisocytosis 1+ H Fibrinogen Sodium Potassium Chloride Carbon Dioxide BUN Creatinine Estimated GFR BUN/Creatinine Ratio Glucose Calcium Magnesium Ferritin 5340 H Total Bilirubin AST ALT Alkaline Phosphatase Lactate Dehydrogenase 1418 H Total Protein Albumin Globulin Albumin/Globulin Ratio Triglycerides CSF Tube Number CSF Volume CSF Appearance CSF Color CSF WBC CSF RBC CSF Mononuclear WBCs CSF Polynuclear WBCs CSF Glucose CSF Total Protein CSF C.neoform/gat PCR CSF CMV DNA (PCR) CSF Enterovirus (PCR) CSF E. coli (PCR) CSF H. influenzae (PCR) CSF HSV I (PCR) CSF HSV II (PCR) CSF HHV 6 (PCR) CSF L.monocytogenes PCR CSF N. meningitidis PCR CSF Parechovirus (PCR) CSF S. agalactiae (PCR) CSF S. pneumoniae (PCR) CSF VZV (PCR) Rheumatoid Factor Hep Bs Antigen Hep B Core Total Ab Hepatitis C Antibody HIV 1&2 Ab/P24 Ag 4thGn 03/21/22 03/21/22 03/21/22 04:07 04:07 04:07 WBC RBC Hgb Hct MCV MCH MCHC RDW Plt Count Neut % (Auto) Lymph % (Auto) [place] % (Auto) Eos % (Auto) Baso % (Auto) Lymph # (Auto) [place] # (Auto) Baso # (Auto) Total Counted Seg Neutrophils % Band Neutrophils % Lymphocytes % (Manual) Monocytes % (Manual) Neutrophils # (Manual) RBC Morphology Anisocytosis Fibrinogen 234 Sodium 131 L Potassium 3.6 Chloride 95 L Carbon Dioxide 27 BUN 2 L Creatinine 0.34 L Estimated GFR > 60 BUN/Creatinine Ratio 5.9 L Glucose 138 H Calcium 7.5 L Magnesium 2.0 Ferritin Total Bilirubin 0.8 AST 120 H ALT 49 H Alkaline Phosphatase 62 Lactate Dehydrogenase Total Protein 8.4 H Albumin 3.4 L Globulin 5.0 H Albumin/Globulin Ratio 0.7 L Triglycerides CSF Tube Number CSF Volume CSF Appearance CSF Color CSF WBC CSF RBC CSF Mononuclear WBCs CSF Polynuclear WBCs CSF Glucose CSF Total Protein CSF C.neoform/gat PCR CSF CMV DNA (PCR) CSF Enterovirus (PCR) CSF E. coli (PCR) CSF H. influenzae (PCR) CSF HSV I (PCR) CSF HSV II (PCR) CSF HHV 6 (PCR) CSF L.monocytogenes PCR CSF N. meningitidis PCR CSF Parechovirus (PCR) CSF S. agalactiae (PCR) CSF S. pneumoniae (PCR) CSF VZV (PCR) Rheumatoid Factor 16.9 H Hep Bs Antigen Hep B Core Total Ab Hepatitis C Antibody HIV 1&2 Ab/P24 Ag 4thGn 03/21/22 04:07 WBC RBC Hgb Hct MCV MCH MCHC RDW Plt Count Neut % (Auto) Lymph % (Auto) [place] % (Auto) Eos % (Auto) Baso % (Auto) Lymph # (Auto) [place] # (Auto) Baso # (Auto) Total Counted Seg Neutrophils % Band Neutrophils % Lymphocytes % (Manual) Monocytes % (Manual) Neutrophils # (Manual) RBC Morphology Anisocytosis Fibrinogen Sodium Potassium Chloride Carbon Dioxide BUN Creatinine Estimated GFR BUN/Creatinine Ratio Glucose Calcium Magnesium Ferritin Total Bilirubin AST ALT Alkaline Phosphatase Lactate Dehydrogenase Total Protein Albumin Globulin Albumin/Globulin Ratio Triglycerides 166 H CSF Tube Number CSF Volume CSF Appearance CSF Color CSF WBC CSF RBC CSF Mononuclear WBCs CSF Polynuclear WBCs CSF Glucose CSF Total Protein CSF C.neoform/gat PCR CSF CMV DNA (PCR) CSF Enterovirus (PCR) CSF E. coli (PCR) CSF H. influenzae (PCR) CSF HSV I (PCR) CSF HSV II (PCR) CSF HHV 6 (PCR) CSF L.monocytogenes PCR CSF N. meningitidis PCR CSF Parechovirus (PCR) CSF S. agalactiae (PCR) CSF S. pneumoniae (PCR) CSF VZV (PCR) Rheumatoid Factor Hep Bs Antigen Hep B Core Total Ab Hepatitis C Antibody HIV 1&2 Ab/P24 Ag 4thGn [facility] Medical History (Updated 03/19/22 @ 15:16 by Yanick Olivares DO) Rheumatoid arthritis Surgical History (Updated 03/19/22 @ 15:16 by Yanick Olivares DO) History of cholecystectomy Family History (Updated 03/19/22 @ 15:17 by Yanick Olivares DO) Mother Arthritis Father No pertinent past medical history Social History household members: none Smoking Status: Former smoker alcohol intake: current Assessment & Plan Assessment & Plan narrative: 1. 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 - Patient with splenomegaly on imaging, lymphadenopathy on imaging, ferritin >5000, pancytopenia, mild transaminitis. Previously admitted for 1 month at age 17-18 with similar presentation, discharge summary states diagnosis of Adult onset Still's disease, but may also be rheumatoid arthritis. Highly suspect HLH or MAS, meets at least 4/9 criteria for HLH (dx usually is 5 or more), pending NK cell activity. - Elevated ESR at 99 and CRP 2.7 on admission. - For HLH, Fibrinogen 234, triglycerides 166, LDH 1418. NK cell function pending. - RF 16.9. DENIA, CCP, and NK cell function pending. - see infectious workup below in possible sepsis - patient requires transfer for guided therapy for HLH / MAS with anakinra and steroids. Anakinra not available at [facility]. Consider further options including prescribing as an outpatient and having her advocate bring in medications. - started pulse dose steroids 02/17/21 for 3 days 1000 mg daily. 2. Possible (less likely) Sepsis, possible pneumonia with hypotension, thrombocytopenia - febrile to near 103 in the ER with hypotension. given zosyn and sepsis bolusing in the ER. Vague joint pains with abdominal, chest pain, and shortness of breath. Thus far infectious workup does not reveal a definitive source. LP performed which showed 1 WBC, 0 RBC. Meningitis panel PCR negative. LP was performed as patient reported a history of being treated for meningitis to rule out viral encephalitis. - HIV negative and hepatitis panel negative thus far. - continue ceftriaxone, azithomycin for possible pneumonia with given symptoms of chest pain and shortness of breath. - TTE unremarkable with no pericardial thickening or effusion. - admitted to ICU with hypotension in the setting of sepsis, has been stable since admission, will downgrade to the floor today. - D-dimer 24473, CTA negative for PE. - no recent travel, no rash to suggest tick borne illness. - patient has family from [place], but was [place] and has lived here her whole life. - Studies pending: EBV, Parvovirus serologies. - with negative workup, more likely represents HLH or MAS as noted above. 2. Pancytopenia - secondary to problem #1 noted above. - continue to follow daily 3. Elevated transaminase levels - Abdominal CT without biliary pathology. - secondary to problem #1 above. 4. Acute hyponatremia - in setting of hypovolemic from vomiting. - continue NS, improved on repeat labs to 131 today from 126. Code: Full, surrogate decision maker is patient's friend Francisca I have utilized all available immediate resources to obtain, update, or review the patient's current medications. Dispo: stable for floor today. Pending transfer. Declined by thus far, pending bed availability at center with hematology and rheumatology with expertise in MAS/HLH to guide steroid and Anakinra therapy. Have discussed with outside providers including hematology, rheumatology at today and [facility]. I spent 60 minutes providing critical care management this patient. This excludes time spent in performing separately billed procedures. COVID-19 COVID-19 status: Negative Time Spent With Patient Critical Care time: I spent a total of [] minutes of critical care time on this patient's care today; this time is exclusive of procedural time. Quality VTE Deep Vein Thrombosis/Pulmonary Embolism Present on Admission: No
[2022-03-21 13:59] VITALS: BP 116/79; PULSE 76; RESP 20; TEMP 37.1; O2SAT 100
[2022-03-21] MEDS: ONDANSETRON 4 MG/2 ML INJ IV (15:34)
[2022-03-21] MEDS: METOCLOPRAMIDE HCL 5 MG TABLET PO (16:41)
[2022-03-21] MEDS: cefTRIAXone 2,000 MG in SODIUM CHLORIDE 0.9% 100 ML 200 MG IV (16:42)
[2022-03-21] MEDS: methylPREDNISolone 1,000 MG in SODIUM CHLORIDE 0.9% 250 ML 125 MG IV (17:31)
[2022-03-21] MEDS: LORazepam 2 MG/ML INJ 0.5 MG IV (18:59)
[2022-03-21 20:31] VITALS: BP 120/70; PULSE 75; RESP 18; TEMP 36.3; O2SAT 100
[2022-03-21] MEDS: TRAZODONE 50 MG TABLET PO (20:37)
[2022-03-21] MEDS: BENZONATATE 100 MG CAPSULE PO (20:37)
[2022-03-21] MEDS: QUETIAPINE 100 MG TABLET 25 MG PO (21:45)
--- NOTE | 2022-03-21 22:10 | PC.NURSE ---
Addendum entered by Marsha Olmos R.N. 03/22/22 03:35: Hospitalist ordered to start Precedex and to call in anesthesiologist to put in a PICC or midline. Dr. Santoyo is anesthesiologist who performed procedure. Dr. Santoyo pushed 10 mg Ketamine at 0241. Pt tolerated procedure well. Pt currently resting in bed. Addendum entered by Marsha Olmos R.N. 03/22/22 01:03: Pt becoming more agitated and wanting to leave. [facility] called. Ordred Haldol IM 2 mg. Addendum entered by Marsha Olmos R.N. 03/22/22 00:32: Stat labs and CT ordered. Took pt to CT scan and shortly after, IV was removed. Pt currently has no IV access. Hospitalist aware. Addendum entered by Marsha Olmos R.N. 03/21/22 22:37: Pt becoming more confused. Stated I am at the [facility]. Was able to redirect her and get her back in bed. Hospitalist notified. Waiting for further orders. Original Note: Pt was standing in doorway stating she needed help around 2129. As I went to assist, I see that she has pulled out her midline. Pt stated Someone came and put a [employer] live in companion her arm and I don't know who it was and was trying to removed the sticker. A 4x4 gauze was placed w/ tape for pressure to stop bleeding. Hospitalist notified and seroquel 25 mg once was ordered. Pt currently has no IV access and hospitalist aware.
--- NOTE | 2022-03-21 22:50 | DI.CT.S_ITS ---
PROCEDURE: CT HEAD/BRAIN WO CON INDICATIONS: Mental status change TECHNIQUE: Noncontrast 4.5 mm thick angled axial sections acquired from the foramen magnum to the vertex, with coronal and sagittal reformats. For radiation dose reduction, the following was used: automated exposure control, adjustment of mA and/or kV according to patient size. COMPARISON: None. FINDINGS: Image quality: Motion artifact limiting scan quality.. CSF spaces: Basal cisterns are patent. No extra-axial fluid collections. Ventricles are normal in size and shape. Brain: No midline shift. No intracranial masses or hemorrhage. Burns-white matter interface is normal. Skull and face: Calvarium and visualized facial bones are intact, without suspicious lesions. Sinuses: Visualized sinuses and mastoids are clear. IMPRESSION: No CT evidence of acute intracranial process. Dictated by: Roslyn Maldonado M.D. on 03/22/2022 at 0:37 Approved by: Roslyn Maldonado M.D. on 03/22/2022 at 0:39
--- NOTE | 2022-03-21 23:12 | PM.CN.EICU ---
History of Present Illness Consult details IF CAMERA ACTIVATED, patient seen via real-time interactive audiovisual communication: Camera activated Date Patient Seen: 03/21/22 Chief complaint: 5 days vomitting, hx of RA, lethargic Reason for consult: Acute encephalopathy Requesting provider: Yanick Olivares Consent obtained for tele-chha care: Yes Patient Location: ICU Provider location (State): [place] Other participants/roles: GAURAV Marcela and bedside RN Narrative: Patient is a 22 year old female with history of RA not on immunsuppressive therapy who presents with worsening joint pain and abdominal pain. Associated with fever/chills, chest pain, and shortness of breath. Further workup revealed pancytopenia and elevated inflammatory markers. Patient was treated empirically for sepsis. She underwent LP which was unremarkable. CTA chest negative. CT abdomen showed periportal edema. 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 [facility] consulted and started on pulse steroids, awaiting for open bed. Later this evening patient became more agitated and started on seroquel/ativan. [facility] consulted for further management. On camera assessment patient is awake and not in distress. She reports having chest pain, shortness of breath, and joint pain. CTH pending. [facility] Medical History (Updated 03/21/22 @ 16:24 by Yanick Olivares DO) Juvenile rheumatoid arthritis with systemic onset Rheumatoid arthritis Surgical History (Updated 03/19/22 @ 15:16 by Yanick Olivares DO) History of cholecystectomy Family History (Updated 03/19/22 @ 15:17 by Yanick Olivares DO) Mother Arthritis Father No pertinent past medical history Social History household members: none Smoking Status: Former smoker alcohol intake: current Current Medications Current Medications Medications: Home Medications No Known Home Medications 03/19/22 [History Confirmed 03/19/22] Visit Medications (administered) Generic Name Dose Route Start Last Admin Trade Name Freq PRN Reason Stop Dose Admin Acetaminophen 650 mg 03/19/22 15:07 03/20/22 08:12 Acetaminophen 325 Mg Tablet PO 650 mg Q6H PRN Administration Fever/Mild Pain (1-3) Benzonatate 100 mg 03/20/22 01:37 03/21/22 20:37 Benzonatate 100 Mg Capsule PO 100 mg TID PRN Administration Cough Enoxaparin Sodium 40 mg 03/20/22 09:00 03/21/22 08:56 Enoxaparin 40 Mg/0.4 Ml Syringe SUBCUT 40 mg DAILY ALISA Administration Hydromorphone HCl 2 mg 03/20/22 09:41 03/20/22 10:09 Hydromorphone 2 Mg Inj IV 2 mg Q3H PRN Administration Pain, Severe (7-10) Sodium Chloride 1,000 mls @ 100 mls/hr 03/19/22 15:07 03/21/22 15:40 Normal Saline 0.9% IV 100 mls/hr CONT ALISA Administration Ceftriaxone Sodium 2,000 mg/ 100 mls @ 200 mls/hr 03/19/22 17:00 03/21/22 18:35 Sodium Chloride IV 03/24/22 16:59 Infused Q24H ALISA Infusion Methylprednisolone 1,000 mg/ 258 mls @ 125 mls/hr 03/20/22 18:00 03/21/22 23:02 Sodium Chloride IV 03/23/22 17:59 Infused Q24H ALISA Infusion Ibuprofen 600 mg 03/19/22 15:07 03/21/22 15:34 Ibuprofen 600 Mg Tablet PO 600 mg Q6H PRN Administration Fever/Mild Pain (1-3) Metoclopramide HCl 5 mg 03/21/22 16:45 03/21/22 16:41 Metoclopramide Hcl 5 Mg Tablet PO 5 mg AC ALISA Administration Morphine Sulfate 4 mg 03/20/22 23:19 03/21/22 17:38 Morphine 4 Mg/Ml Inj IV 4 mg Q4HR PRN Administration Pain, Severe (7-10) Ondansetron HCl 4 mg 03/21/22 15:15 03/21/22 15:34 Ondansetron 4 Mg/2 Ml Inj IV 4 mg Q4HR PRN Administration Nausea And Vomiting Oxycodone HCl 10 mg 03/20/22 09:41 03/20/22 20:28 Oxycodone Ir 5 Mg Tablet PO 10 mg Q3H PRN Administration Pain, Moderate (4-6) Sodium Chloride 10 ml 03/20/22 21:00 03/21/22 20:38 Sodium Chloride 0.9% Flush IV 10 ml BID ALISA Administration Trazodone HCl 50 mg 03/20/22 02:00 03/21/22 20:37 Trazodone 50 Mg Tablet PO 50 mg BEDTIME ALISA Administration Exam Vital Signs (past 8 hours): - 03/21/22 20:00 03/21/22 20:31 Temperature 97.4 F L Pulse Rate 75 Respiratory Rate 18 Blood Pressure 120/70 Pulse Oximetry 100 Oxygen Delivery Method Room Air Oxygen Delivery Method Room Air Oxygen Flow Rate 0 Narrative Exam Narrative: Not in distress Objective Labs 03/21/22 04:07 03/21/22 04:07 Labs: Laboratory Results - last 24 hr 03/19/22 03/21/22 03/21/22 15:25 04:07 04:07 WBC RBC Hgb Hct MCV MCH MCHC RDW Plt Count Neut % (Auto) Lymph % (Auto) Grainger % (Auto) Eos % (Auto) Baso % (Auto) Lymph # (Auto) Grainger # (Auto) Baso # (Auto) Total Counted Seg Neutrophils % Band Neutrophils % Lymphocytes % (Manual) Monocytes % (Manual) Neutrophils # (Manual) RBC Morphology Anisocytosis Fibrinogen Sodium Potassium Chloride Carbon Dioxide BUN Creatinine Estimated GFR BUN/Creatinine Ratio Glucose Calcium Magnesium Ferritin 5340 H Total Bilirubin AST ALT Alkaline Phosphatase Lactate Dehydrogenase 1418 H Total Protein Albumin Globulin Albumin/Globulin Ratio Triglycerides Rheumatoid Factor NK Cell Function Assay NK Cell Please Note Hep B Core Total Ab Negative 03/21/22 03/21/22 03/21/22 04:07 04:07 04:07 WBC 1.2 L* D RBC 3.07 L Hgb 8.7 L Hct 25.5 L MCV 82.9 MCH 28.3 MCHC 34.1 RDW 15.4 H Plt Count 118 L Neut % (Auto) Not Reportable Lymph % (Auto) Not Reportable Grainger % (Auto) Not Reportable Eos % (Auto) Not Reportable Baso % (Auto) Not Reportable Lymph # (Auto) Not Reportable Grainger # (Auto) Not Reportable Baso # (Auto) Not Reportable Total Counted 50 Seg Neutrophils % 60.0 Band Neutrophils % 4.0 Lymphocytes % (Manual) 32.0 Monocytes % (Manual) 4.0 Neutrophils # (Manual) 768 L RBC Morphology See below Anisocytosis 1+ H Fibrinogen Sodium 131 L Potassium 3.6 Chloride 95 L Carbon Dioxide 27 BUN 2 L Creatinine 0.34 L Estimated GFR > 60 BUN/Creatinine Ratio 5.9 L Glucose 138 H Calcium 7.5 L Magnesium 2.0 Ferritin Total Bilirubin 0.8 AST 120 H ALT 49 H Alkaline Phosphatase 62 Lactate Dehydrogenase Total Protein 8.4 H Albumin 3.4 L Globulin 5.0 H Albumin/Globulin Ratio 0.7 L Triglycerides Rheumatoid Factor 16.9 H NK Cell Function Assay NK Cell Please Note Hep B Core Total Ab 03/21/22 03/21/22 03/21/22 04:07 04:07 09:30 WBC RBC Hgb Hct MCV MCH MCHC RDW Plt Count Neut % (Auto) Lymph % (Auto) Grainger % (Auto) Eos % (Auto) Baso % (Auto) Lymph # (Auto) Grainger # (Auto) Baso # (Auto) Total Counted Seg Neutrophils % Band Neutrophils % Lymphocytes % (Manual) Monocytes % (Manual) Neutrophils # (Manual) RBC Morphology Anisocytosis Fibrinogen 234 Sodium Potassium Chloride Carbon Dioxide BUN Creatinine Estimated GFR BUN/Creatinine Ratio Glucose Calcium Magnesium Ferritin Total Bilirubin AST ALT Alkaline Phosphatase Lactate Dehydrogenase Total Protein Albumin Globulin Albumin/Globulin Ratio Triglycerides 166 H Rheumatoid Factor NK Cell Function Assay Cancelled NK Cell Please Note Cancelled Hep B Core Total Ab Assessment & Plan Assessment & Plan narrative: NEURO: # Acute encephalopathy -- Secondary to deliirum from high dose steroids -- Avoid BZD due to risk of worsening delirium -- Cont seroquel -- If agitation recur then recommend starting low dose precedex gtt -- Daily CAM ICU RESP: -- On room air -- CTA PE negative -- Encourage IS and OOB as tolerated HEME: # Pancytopenia -- HIV negative -- Secondary to Still's disease -- Awaiting to be transfer to [facility] for further managment -- Daily CBC # Anemia -- Secondary to ACD -- Daily CBC -- Goal Hb > 7 Rheum: # Acute Stills disease flare -- On pulse steroids -- Concern raises for HLH. However, CT is negative for splenomegaly and TG <300, which makes it less likely -- Pending transfer to [facility] for further management ENDO: -- Goal BS < 180 D/w GAURAV Marcela and bedside RN. Time Spent With Patient Critical Care time: I spent a total of 34 minutes of critical care time on this patient's care today; this time is exclusive of procedural time.
[2022-03-21] MEDS: dexmedeTOMIDine in 0.9 % NaCL 400 MCG/100 ML PLAST..BAG IV (23:35)
--- NOTE | 2022-03-21 23:43 | PM.DS.1 ---
History of Present Illness History of Present Illness Date Patient Seen: 03/19/22 Chief complaint: 5 days vomitting, hx of RA, lethargic Narrative: This is a 22 year old female with PMH of Rheumatoid arthritis, not currently on medications who presents with 5 days of diffuse joint pains, abdominal pain, back pain, weakness, and fever. Patient states she developed fevers with nausea, vomiting, joint pains, bilateral lower quadrant abdominal pain. She has continued to feel ill, worsening to development of cough with pleuritic type chest pain and dyspnea, though her dyspnea is mild. She denies sick contacts or recent travel. She denies rash. No diarrhea and has not had a bowel movement for about 5 days as well. No dysuria, urinary frequency, no vaginal bleeding or discharge. In the emergency room, patient was febrile to 102.9 F, hypotensive but responded to IV fluids. The remainder of her vitals were unremarkable. Abdominal CT was unremarkable except for periportal edema. Lab evaluation notable for pancytopenia, hyponatremia, and mild transaminitis with AST > ALT. Lipase elevated at 445, Procalcitonin 1.17. COVID, flu, RSV were negative, UA was not indicative of infection. Patient was admitted for further management of presumed sepsis, with possible pneumonia. 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 -stat CBC, CMP, Mag, fibrinogen, ferritin, RF, LDH have been ordered, antinuclear antibody, and reference tests are pending (send-out labs), head CT, -patient has removed her PICC line, is confused and disorientated unaware of self place time, causing self harm, placed on 1:1 monitoring, Sz precautions, Precedex drip -change to ICU status, tele case assembler consult Dr. Ji -Called Placed to transfer center/hospital cleaning specialist consult: Dr. Kennedy earlier today had consulted with rheumatology and hematology regarding transfer, they currently have the patients information regarding an open transfer case.- pending accepting physician call for immediate transfer 2. 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 ?- Patient with splenomegaly on imaging, lymphadenopathy on imaging, ferritin >5000, pancytopenia, mild transaminitis. Previously admitted for 1 month at age 17-18 with similar presentation, discharge summary states diagnosis of Adult onset Still's disease, but may also be rheumatoid arthritis. Highly suspect HLH or MAS, meets at least 4/9 criteria for HLH (dx usually is 5 or more), pending NK cell activity. ?- Elevated ESR at 99 and CRP 2.7 on admission. ?- For HLH, Fibrinogen 234, triglycerides 166, LDH 1418. NK cell function pending. ?- RF 16.9. DENIA, CCP, and NK cell function pending. ?- see infectious workup below in possible sepsis - LP initial results were negative, some labs are still pending. ?- patient requires transfer for guided therapy for HLH / MAS with anakinra and steroids. Anakinra not available at [facility]. Consider further options including prescribing as an outpatient and having her advocate bring in medications. ?- started pulse dose steroids 02/17/21 for 3 days 1000 mg daily. 3. . Possible (less likely) Sepsis, possible pneumonia with hypotension, thrombocytopenia - febrile to near 103 in the ER with hypotension. given zosyn and sepsis bolusing in the ER. Vague joint pains with abdominal, chest pain, and shortness of breath. Thus far infectious workup does not reveal a definitive source. LP performed which showed 1 WBC, 0 RBC. Meningitis panel PCR negative. LP was performed as patient reported a history of being treated for meningitis to rule out viral encephalitis. ?- HIV negative and hepatitis panel negative thus far. - continue ceftriaxone, azithomycin for possible pneumonia with given symptoms of chest pain and shortness of breath. ?- TTE unremarkable with no pericardial thickening or effusion. ?- admitted to ICU with hypotension in the setting of sepsis, has been stable since admission, will downgrade to the floor today. ?- D-dimer 32695, CTA negative for PE. ?- no recent travel, no rash to suggest tick borne illness. ?- patient has family from [place], but was [place] the [place] and has lived here her whole life. ?- Studies pending: EBV, Parvovirus serologies. ?- with negative workup, more likely represents HLH or MAS as noted above. 4. Pancytopenia ?- secondary to problem #1 noted above. ?- continue to follow daily 5. Elevated transaminase levels ?- Abdominal CT without biliary pathology. ?- secondary to problem #1 above. 6. Acute hyponatremia ?- in setting of hypovolemic from vomiting. ?- continue NS, improved on repeat labs to 131 today from 126. Code: Full, surrogate decision maker is patient's friend Francisca I have utilized all available immediate resources to obtain, update, or review the patient's current medications. Dispo: Unstable, acute neurological changes, decompensating Pending Immediate transfer -to a center with hematology and rheumatology with expertise in MAS/HLH to guide steroid and Anakinra therapy -Declined by [facility] today- as patient was stable. Dr. Olivares had discussed patients case with outside providers including hematology, rheumatology at [facility]. I spent 60 minutes providing critical care management this patient.? This excludes time spent in performing separately billed procedures. COVID-19 COVID-19 status: Negative Hospital Course: Patient originally presented and was admitted for sepsis secondary to pneumonia, with fever, hypotension, thrombocytopenia, pancytopenia, elevated transaminase levels, and acute hyponatremia. Patient was originally treated with sepsis rehydration, Zosyn, Rocephin, azithromycin. During the course of her hospitalization and after obtaining outside medical records discovered patient had adult onset Still's disease, patient was placed on a 1000 mg of methylprednisone Q 24 hours, we have been unable to obtain Anakinra therapy. High suspicion of HLH or MAS, meets at least 4/9 criteria for HLH (dx usually is 5 or more), pending NK cell activityHighly. Dr. Kennedy reached out on 03/21/2022 for extensive consultation requesting transfer to [facility] for rheumatology/hematology specially management, and [facility] for transfer regarding access to Anakinra and for a bone biopsy. At approximately 10:30 p.m. the patient began with an acute onset of altered mental status that quickly became decompensated. Immediate imaging and labs have been ordered, patient was moved to the ICU, tele case assembler consult, placed on a Precedex drip, and consulted with [facility] transfer center for immediate transfer to a facility with a higher level of care and specialty, due to suspected HLH and high risk of mortality. Status at Discharge Cognitive/behavioral status at discharge: confused and agitated Functional status at discharge: bed bound Overall status at discharge: other (Patient's status is rapidly declining/deteriorating, and is unstable. ) Exam Vital Signs (past 8 hours): - 03/21/22 20:00 03/21/22 20:31 Temperature 97.4 F L Pulse Rate 75 Respiratory Rate 18 Blood Pressure 120/70 Pulse Oximetry 100 Oxygen Delivery Method Room Air Oxygen Delivery Method Room Air Oxygen Flow Rate 0 Narrative Exam Narrative: General:?Tall, thin female in no acute distress, but acutely ill, acute altered mental status. HEENT:? Normocephalic, atraumatic, extraocular muscles intact, oral pharynx is clear and mucous membranes are moist today Neck: supple and symmetric, trachea is midline, no cervical adenopathy. Chest:? Normal AP diameter and contour without kyphoscoliosis, no tachypnea, equal chest rise bilaterally. Lungs:?CTA b/l. Cardio:?RRR no m/r/g. Abdomen: soft, non-distended, non-tender Musculoskeletal:? Muscle strength and tone are equal within normal limits, no deformity. Extremities: No edema or joint effusions. No cyanosis or clubbing. Skin:? Pale,? Warm to touch,dry and intact without rashes, ulcerations or petechiae.? Neuro:? Alert, redirectable, but confused, removed PICC line thinking it was a Valentines sticker,? sensation to touch intact in all extremities, no gross deficits noted of cranial nerves. Psych:? Patient has a well-kept appearance, acutely ill appearing, acute altered mental status. Objective Labs 03/21/22 04:07 03/21/22 04:07 Labs: Laboratory Results - last 24 hr 03/19/22 03/21/22 03/21/22 15:25 04:07 04:07 WBC RBC Hgb Hct MCV MCH MCHC RDW Plt Count Neut % (Auto) Lymph % (Auto) [place] % (Auto) Eos % (Auto) Baso % (Auto) Lymph # (Auto) [place] # (Auto) Baso # (Auto) Total Counted Seg Neutrophils % Band Neutrophils % Lymphocytes % (Manual) Monocytes % (Manual) Neutrophils # (Manual) RBC Morphology Anisocytosis Fibrinogen Sodium Potassium Chloride Carbon Dioxide BUN Creatinine Estimated GFR BUN/Creatinine Ratio Glucose Calcium Magnesium Ferritin 5340 H Total Bilirubin AST ALT Alkaline Phosphatase Lactate Dehydrogenase 1418 H Total Protein Albumin Globulin Albumin/Globulin Ratio Triglycerides Rheumatoid Factor NK Cell Function Assay NK Cell Please Note Hep B Core Total Ab Negative 03/21/22 03/21/22 03/21/22 04:07 04:07 04:07 WBC 1.2 L* D RBC 3.07 L Hgb 8.7 L Hct 25.5 L MCV 82.9 MCH 28.3 MCHC 34.1 RDW 15.4 H Plt Count 118 L Neut % (Auto) Not Reportable Lymph % (Auto) Not Reportable [place] % (Auto) Not Reportable Eos % (Auto) Not Reportable Baso % (Auto) Not Reportable Lymph # (Auto) Not Reportable [place] # (Auto) Not Reportable Baso # (Auto) Not Reportable Total Counted 50 Seg Neutrophils % 60.0 Band Neutrophils % 4.0 Lymphocytes % (Manual) 32.0 Monocytes % (Manual) 4.0 Neutrophils # (Manual) 768 L RBC Morphology See below Anisocytosis 1+ H Fibrinogen Sodium 131 L Potassium 3.6 Chloride 95 L Carbon Dioxide 27 BUN 2 L Creatinine 0.34 L Estimated GFR > 60 BUN/Creatinine Ratio 5.9 L Glucose 138 H Calcium 7.5 L Magnesium 2.0 Ferritin Total Bilirubin 0.8 AST 120 H ALT 49 H Alkaline Phosphatase 62 Lactate Dehydrogenase Total Protein 8.4 H Albumin 3.4 L Globulin 5.0 H Albumin/Globulin Ratio 0.7 L Triglycerides Rheumatoid Factor 16.9 H NK Cell Function Assay NK Cell Please Note Hep B Core Total Ab 03/21/22 03/21/22 03/21/22 04:07 04:07 09:30 WBC RBC Hgb Hct MCV MCH MCHC RDW Plt Count Neut % (Auto) Lymph % (Auto) [place] % (Auto) Eos % (Auto) Baso % (Auto) Lymph # (Auto) [place] # (Auto) Baso # (Auto) Total Counted Seg Neutrophils % Band Neutrophils % Lymphocytes % (Manual) Monocytes % (Manual) Neutrophils # (Manual) RBC Morphology Anisocytosis Fibrinogen 234 Sodium Potassium Chloride Carbon Dioxide BUN Creatinine Estimated GFR BUN/Creatinine Ratio Glucose Calcium Magnesium Ferritin Total Bilirubin AST ALT Alkaline Phosphatase Lactate Dehydrogenase Total Protein Albumin Globulin Albumin/Globulin Ratio Triglycerides 166 H Rheumatoid Factor NK Cell Function Assay Cancelled NK Cell Please Note Cancelled Hep B Core Total Ab [facility] Medical History 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 -stat CBC, CMP, Mag, fibrinogen, ferritin, RF, LDH have been ordered, antinuclear antibody, and reference tests are pending (send-out labs), head CT, -patient has removed her PICC line, is confused and disorientated unaware of self place time, causing self harm, placed on 1:1 monitoring, Sz precautions, Precedex drip -change to ICU status, tele case assembler consult Dr. Ji-recommended immediate transfer. -Called Placed to transfer center/hospital cleaning specialist consult: Dr. Kennedy earlier today had consulted with rheumatology and hematology regarding transfer, they currently have the patients information regarding an open transfer case.- pending accepting physician call for immediate transfer 2. 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 ?- Patient with splenomegaly on imaging, lymphadenopathy on imaging, ferritin >5000, pancytopenia, mild transaminitis. Previously admitted for 1 month at age 17-18 with similar presentation, discharge summary states diagnosis of Adult onset Still's disease, but may also be rheumatoid arthritis. Highly suspect HLH or MAS, meets at least 4/9 criteria for HLH (dx usually is 5 or more), pending NK cell activity. ?- Elevated ESR at 99 and CRP 2.7 on admission. ?- For HLH, Fibrinogen 234, triglycerides 166, LDH 1418. NK cell function pending. ?- RF 16.9. DENIA, CCP, and NK cell function pending. ?- see infectious workup below in possible sepsis - LP initial results were negative, some labs are still pending. ?- patient requires transfer for guided therapy for HLH / MAS with anakinra and steroids. Anakinra not available at [facility]. Consider further options including prescribing as an outpatient and having her advocate bring in medications. ?- started pulse dose steroids 02/17/21 for 3 days 1000 mg daily. 3. . Possible (less likely) Sepsis, possible pneumonia with hypotension, thrombocytopenia - febrile to near 103 in the ER with hypotension. given zosyn and sepsis bolusing in the ER. Vague joint pains with abdominal, chest pain, and shortness of breath. Thus far infectious workup does not reveal a definitive source. LP performed which showed 1 WBC, 0 RBC. Meningitis panel PCR negative. LP was performed as patient reported a history of being treated for meningitis to rule out viral encephalitis. ?- HIV negative and hepatitis panel negative thus far. - continue ceftriaxone, azithomycin for possible pneumonia with given symptoms of chest pain and shortness of breath. ?- TTE unremarkable with no pericardial thickening or effusion. ?- admitted to ICU with hypotension in the setting of sepsis, has been stable since admission, will downgrade to the floor today. ?- D-dimer 50131, CTA negative for PE. ?- no recent travel, no rash to suggest tick borne illness. ?- patient has family from [place], but was [place] and has lived here her whole life. ?- Studies pending: EBV, Parvovirus serologies. ?- with negative workup, more likely represents HLH or MAS as noted above. 4. Pancytopenia ?- secondary to problem #1 noted above. ?- continue to follow daily 5. Elevated transaminase levels ?- Abdominal CT without biliary pathology. ?- secondary to problem #1 above. 6. Acute hyponatremia -in setting of hypovolemic from vomiting. -continue NS, improved on repeat labs to 131 today from 126. Plan of Treatment: Transfer to facility with a higher level care: Discharge Plan Discharge Plan Patient Disposition: [facility] Discharge orders & Medications Medication counseling provided by Pharmacist: No Discharge Health Status Health Concerns: High clinical concern for HLH/MSA-high risk for seizures, multi-organ failure, morbidity and mortality. Precautions: [employer] VTE Deep Vein Thrombosis/Pulmonary Embolism Present on Admission: No
[2022-03-22] VITALS (45 sets, daily range): BP systolic 107–146; BP diastolic 67–107; PULSE 37–153; RESP 12–29; TEMP 36.3–37.3; O2SAT 83–100
[2022-03-22 00:05] LABS: Basophils Absolute Auto 0 /uL (0-100); Basophils Percent Auto 0.9 % (0-2); Eosinophils Absolute Auto 0 /uL (0-450); Hematocrit 26.3 % (36-46); Hemoglobin 8.9 g/dL (12.0-16.0); Lymphocytes Absolute Auto 600 /uL (1100-4500); Lymphocytes Percent Auto 34.7 % (25-40); Mean Corpuscular HGB Conc 33.9 % (30-36); Mean Corpuscular Volume 82.8 fL (80-100); Monocytes Absolute Auto 100 /uL (0-900); Monocytes Percent Auto 5.1 % (3-14); Neutrophils Absolute Auto 1000 /uL (1500-7000); Neutrophils Percent Auto 59.3 % (50-75); Platelet Count 146 X10^3/uL (150-400); Red Blood Cell Count 3.17 X10^6/uL (4.0-5.2); Red Cell Distribution Width 15.2 % (11.6-14.8)
[2022-03-22 00:14] LABS: Fibrinogen 198 mg/dL (211-428)
[2022-03-22 00:16] LABS: Add Manual Diff / Slide Review SLIDE REVIEW
[2022-03-22 00:18] LABS: White Blood Cell Count 1.6 X10^3/uL (4.5-11.0)
[2022-03-22 00:34] LABS: Alanine Aminotransferase 59 IU/L (<35); Albumin 3.5 g/dL (3.5-5.0); Albumin Globulin Ratio 0.7 (1.0-2.8); Alkaline Phosphatase 65 U/L (38-126); Aspartate Aminotransferase 140 IU/L (14-36); BUN Creatinine Ratio 13.8 (6-22); Blood Urea Nitrogen 4 mg/dL (7-17); Carbon Dioxide 25 mmol/L (22-32); Chloride 98 mmol/L (98-107); Estimated Glomerular Filt Rate > 60 mL/min (>60); Globulin 5.1 g/dL (1.7-4.1); Glucose 154 mg/dL (70-100); HEMOLYSIS < 15 (0-50); Potassium 3.1 mmol/L (3.4-5.1); Sodium 133 mmol/L (137-145); Total Protein 8.6 g/dL (6.3-8.2)
[2022-03-22 00:37] LABS: Rheumatoid Factor 16.1 IU/mL (<12.0)
[2022-03-22 00:42] LABS: Lactate Dehydrogenase 1314 U/L (120-246)
[2022-03-22 00:53] LABS: Procalcitonin 0.21 ng/mL (<0.5)
[2022-03-22] MEDS: HALOPERIDOL 5 MG/ML VIAL 2 MG IM ×2 (01:02→01:45)
[2022-03-22 01:24] LABS: C-Reactive Protein Quant 2.5 mg/dL (<1.0)
[2022-03-22 01:33] LABS: Erythrocyte Sedimentation Rate 66 MM/HR (0-20)
--- NOTE | 2022-03-22 01:33 | PM.EVENT ---
Event Note Date Patient Seen: 03/22/22 Time Patient Seen: 01:33 Event Note (Rapid Response, Code, or fall): Patient pulled out her PIV and refused all therapy. Failed haldol 2 mg IV. Ordered ativan 1 mg IM. D/w bedside RN.
[2022-03-22 01:34] LABS: Ferritin 5700 ng/mL (6-137)
--- NOTE | 2022-03-22 03:20 | PM.PROC.1 ---
Procedures Date/Time Date of procedure: 03/22/22 Time of procedure: 03:26 Central Line Placement Time out performed: Yes (discussed need for added access with hospitalist. agreed upon mid-line) Patient placed on monitor/pulse ox: Yes MD prep: mask and gloves Central line prep: Chlorhexidine scrub and sterile drapes applied Ultrasound used for placement: Yes Central line lumen inserted: double (PICC 4F power PICC ) Post procedure: sutured in place, good blood return, all ports aspirated, flushed, capped and sterile dressing applied Post procedure x-ray: other (Mid-line using PICC kit. Catheter inserted 15cm, L upper arm) Patient tolerated procedure: well Complications: none Additional comments: Mid-line placed for sedation in agitated, encephalopathic pt. PIV in situ, on precedex. 10mg ketamine IV in addition to existing sedation for procedure. Sterile prep, drape, sterile gloves and US sheath and gel.
--- NOTE | 2022-03-22 03:31 | PC.NURSE ---
US of line placed by JING COLLINS.
[2022-03-22] MEDS: POTASSIUM CHLORIDE IN WATER 10 MEQ/100 ML PIGGYBACK 100 MEQ IV ×4 (03:44→06:57)
[2022-03-22 04:57] LABS: Hepatitis A Ab IgM Negative (Negative); Hepatitis A Ab Total Positive (Negative)
[2022-03-22 05:02] LABS: Alanine Aminotransferase 62 IU/L (<35); Albumin 3.4 g/dL (3.5-5.0); Albumin Globulin Ratio 0.7 (1.0-2.8); Alkaline Phosphatase 55 U/L (38-126); Aspartate Aminotransferase 151 IU/L (14-36); BUN Creatinine Ratio 11.8 (6-22); Bilirubin Total 0.7 mg/dL (0.2-1.3); Blood Urea Nitrogen 4 mg/dL (7-17); Calcium 7.8 mg/dL (8.4-10.2); Carbon Dioxide 28 mmol/L (22-32); Chloride 101 mmol/L (98-107); Estimated Glomerular Filt Rate > 60 mL/min (>60); Globulin 4.7 g/dL (1.7-4.1); Glucose 167 mg/dL (70-100); HEMOLYSIS 21 (0-50); Magnesium 2.3 mg/dL (1.6-2.3); Potassium 3.7 mmol/L (3.4-5.1); Sodium 135 mmol/L (137-145); Total Protein 8.1 g/dL (6.3-8.2)
[2022-03-22 05:11] LABS: Basophils Absolute Auto 0 /uL (0-100); Basophils Percent Auto 0.2 % (0-2); Eosinophils Absolute Auto 0 /uL (0-450); Hematocrit 24.6 % (36-46); Hemoglobin 8.4 g/dL (12.0-16.0); Lymphocytes Absolute Auto 500 /uL (1100-4500); Mean Corpuscular Hemoglobin 28.5 PG (26-34); Mean Corpuscular Volume 83.6 fL (80-100); Monocytes Absolute Auto 100 /uL (0-900); Monocytes Percent Auto 6.3 % (3-14); Neutrophils Absolute Auto 700 /uL (1500-7000); Neutrophils Percent Auto 55.5 % (50-75); Platelet Count 136 X10^3/uL (150-400); Red Blood Cell Count 2.94 X10^6/uL (4.0-5.2); Red Cell Distribution Width 15.6 % (11.6-14.8)
[2022-03-22 05:13] LABS: Add Manual Diff / Slide Review SLIDE REVIEW; White Blood Cell Count 1.3 X10^3/uL (4.5-11.0)
[2022-03-22 05:22] LABS: Anisocytosis 1+
[2022-03-22 05:28] LABS: Pappenheimer Bodies 2+
[2022-03-22] MEDS: dexmedeTOMIDine in 0.9 % NaCL 400 MCG/100 ML PLAST..BAG 15.375 MCG IV (05:50)
[2022-03-22 06:02] LABS: Anisocytosis 1+
[2022-03-22 06:03] LABS: Pappenheimer Bodies 2+
[2022-03-22 06:59] LABS: D Dimer 16203 ng/ml (<500)
[2022-03-22 07:19] LABS: Hepatitis B Surf Ab Qualitativ Non Reactive (.)
[2022-03-22] MEDS: ENOXAPARIN 40 MG/0.4 ML SYRINGE SUBCUT (08:42)
[2022-03-22] MEDS: dexmedeTOMIDine in 0.9 % NaCL 400 MCG/100 ML PLAST..BAG 18.45 MCG IV (08:43)
--- NOTE | 2022-03-22 09:23 | P.PN_ITS ---
Subjective Subjective Date Patient Seen: 03/22/22 Interval history: Patient somnolent but speaks clearly with eyes closed. Was able to wean off precedex drip. Her friends are at bedside. [facility] accepted patient and awaiting bed availability. Exam Vital Signs (past 8 hours): - 03/22/22 03:30 03/22/22 04:36 03/22/22 07:00 Temperature Pulse Rate 65 61 Respiratory Rate 20 19 Blood Pressure 114/86 Pulse Oximetry 100 100 Oxygen Delivery Method Room Air 03/22/22 07:01 03/22/22 07:01 03/22/22 07:30 Temperature Pulse Rate 62 60 Respiratory Rate 19 18 Blood Pressure 123/94 H Pulse Oximetry 100 100 Oxygen Delivery Method 03/22/22 07:31 03/22/22 07:31 03/22/22 08:00 Temperature 98 F Pulse Rate 61 Respiratory Rate 19 Blood Pressure 118/91 H Pulse Oximetry 100 Oxygen Delivery Method Room Air 03/22/22 08:00 03/22/22 08:01 03/22/22 08:01 Temperature Pulse Rate 60 59 L Respiratory Rate 18 19 Blood Pressure 122/97 H Pulse Oximetry 99 99 Oxygen Delivery Method 03/22/22 08:30 03/22/22 09:00 Temperature Pulse Rate 57 L 70 Respiratory Rate 16 29 H Blood Pressure Pulse Oximetry 100 100 Oxygen Delivery Method Oxygen Delivery Method Room Air Oxygen Flow Rate 0 Narrative Exam Narrative: General:?Tall, thin female in no acute distress, but acutely ill. HEENT:? Normocephalic, atraumatic, extraocular muscles intact, oral pharynx is clear and mucous membranes are moist today Neck: supple and symmetric, trachea is midline, no cervical adenopathy. Chest:? Normal AP diameter and contour without kyphoscoliosis, no tachypnea, equal chest rise bilaterally. Lungs:?CTA b/l. Cardio:?RRR no m/r/g. Abdomen: soft, non-distended, non-tender Musculoskeletal:? Muscle strength and tone are equal within normal limits, no deformity. Extremities: No edema or joint effusions. No cyanosis or clubbing. Skin:? Pale,? Warm to touch,dry and intact without rashes, ulcerations or petechiae.? Neuro:? Alert and orientated x3,? sensation to touch intact in all extremities, no gross deficits noted of cranial nerves. Psych:? Patient has a well-kept appearance, appropriate affect, mental status attitude thought context and judgment are appropriate for age. Objective Labs 03/22/22 04:42 03/22/22 04:42 Labs: Laboratory Results - last 24 hr 03/19/22 03/20/22 03/20/22 15:25 04:39 04:39 WBC RBC Hgb Hct MCV MCH MCHC RDW Plt Count Neut % (Auto) Lymph % (Auto) [place] % (Auto) Eos % (Auto) Baso % (Auto) Neut # (Auto) Lymph # (Auto) [place] # (Auto) Eos # (Auto) Baso # (Auto) RBC Morphology Anisocytosis Pappenheimer Bodies ESR Fibrinogen D-Dimer Sodium Potassium Chloride Carbon Dioxide BUN Creatinine Estimated GFR BUN/Creatinine Ratio Glucose Lactate Calcium Magnesium Ferritin Total Bilirubin AST ALT Alkaline Phosphatase Lactate Dehydrogenase C-Reactive Protein Total Protein Albumin Globulin Albumin/Globulin Ratio Procalcitonin Rheumatoid Factor NK Cell Function Assay NK Cell Please Note Hepatitis A Total & IgM Positive A Hep A IgM Ab Confirm Negative Hep Bs Antibody Non reactive Hep B Core Total Ab Negative 03/21/22 03/21/22 03/21/22 09:30 23:44 23:44 WBC 1.6 L* RBC 3.17 L Hgb 8.9 L Hct 26.3 L MCV 82.8 MCH 28.0 MCHC 33.9 RDW 15.2 H Plt Count 146 L Neut % (Auto) 59.3 Lymph % (Auto) 34.7 [place] % (Auto) 5.1 Eos % (Auto) 0.0 L Baso % (Auto) 0.9 Neut # (Auto) 1000 L Lymph # (Auto) 600 L [place] # (Auto) 100 Eos # (Auto) 0 Baso # (Auto) 0 RBC Morphology See below Anisocytosis 1+ H Pappenheimer Bodies 2+ H ESR Fibrinogen 198 L D-Dimer Sodium Potassium Chloride Carbon Dioxide BUN Creatinine Estimated GFR BUN/Creatinine Ratio Glucose Lactate Calcium Magnesium Ferritin Total Bilirubin AST ALT Alkaline Phosphatase Lactate Dehydrogenase C-Reactive Protein Total Protein Albumin Globulin Albumin/Globulin Ratio Procalcitonin Rheumatoid Factor NK Cell Function Assay Cancelled NK Cell Please Note Cancelled Hepatitis A Total & IgM Hep A IgM Ab Confirm Hep Bs Antibody Hep B Core Total Ab 03/21/22 03/21/22 03/21/22 23:44 23:44 23:49 WBC RBC Hgb Hct MCV MCH MCHC RDW Plt Count Neut % (Auto) Lymph % (Auto) [place] % (Auto) Eos % (Auto) Baso % (Auto) Neut # (Auto) Lymph # (Auto) [place] # (Auto) Eos # (Auto) Baso # (Auto) RBC Morphology Anisocytosis Pappenheimer Bodies ESR 66 H Fibrinogen D-Dimer Sodium 133 L Potassium 3.1 L Chloride 98 Carbon Dioxide 25 BUN 4 L Creatinine 0.29 L Estimated GFR > 60 BUN/Creatinine Ratio 13.8 Glucose 154 H Lactate 1.0 Calcium 8.0 L Magnesium 2.0 Ferritin 5700 H Total Bilirubin 1.0 AST 140 H ALT 59 H Alkaline Phosphatase 65 Lactate Dehydrogenase 1314 H C-Reactive Protein Total Protein 8.6 H Albumin 3.5 Globulin 5.1 H Albumin/Globulin Ratio 0.7 L Procalcitonin 0.21 Rheumatoid Factor 16.1 H NK Cell Function Assay NK Cell Please Note Hepatitis A Total & IgM Hep A IgM Ab Confirm Hep Bs Antibody Hep B Core Total Ab 03/21/22 03/22/22 03/22/22 23:49 04:42 04:42 WBC 1.3 L* RBC 2.94 L Hgb 8.4 L Hct 24.6 L MCV 83.6 MCH 28.5 MCHC 34.0 RDW 15.6 H Plt Count 136 L Neut % (Auto) 55.5 Lymph % (Auto) 38.0 [place] % (Auto) 6.3 Eos % (Auto) 0.0 L Baso % (Auto) 0.2 Neut # (Auto) 700 L Lymph # (Auto) 500 L [place] # (Auto) 100 Eos # (Auto) 0 Baso # (Auto) 0 RBC Morphology See below Anisocytosis 1+ H Pappenheimer Bodies 2+ H ESR Fibrinogen D-Dimer Sodium 135 L Potassium 3.7 Chloride 101 Carbon Dioxide 28 BUN 4 L Creatinine 0.34 L Estimated GFR > 60 BUN/Creatinine Ratio 11.8 Glucose 167 H Lactate Calcium 7.8 L Magnesium 2.3 Ferritin Total Bilirubin 0.7 AST 151 H ALT 62 H Alkaline Phosphatase 55 Lactate Dehydrogenase C-Reactive Protein 2.5 H Total Protein 8.1 Albumin 3.4 L Globulin 4.7 H Albumin/Globulin Ratio 0.7 L Procalcitonin Rheumatoid Factor NK Cell Function Assay NK Cell Please Note Hepatitis A Total & IgM Hep A IgM Ab Confirm Hep Bs Antibody Hep B Core Total Ab 03/22/22 06:39 WBC RBC Hgb Hct MCV MCH MCHC RDW Plt Count Neut % (Auto) Lymph % (Auto) [place] % (Auto) Eos % (Auto) Baso % (Auto) Neut # (Auto) Lymph # (Auto) [place] # (Auto) Eos # (Auto) Baso # (Auto) RBC Morphology Anisocytosis Pappenheimer Bodies ESR Fibrinogen D-Dimer 12336 H Sodium Potassium Chloride Carbon Dioxide BUN Creatinine Estimated GFR BUN/Creatinine Ratio Glucose Lactate Calcium Magnesium Ferritin Total Bilirubin AST ALT Alkaline Phosphatase Lactate Dehydrogenase C-Reactive Protein Total Protein Albumin Globulin Albumin/Globulin Ratio Procalcitonin Rheumatoid Factor NK Cell Function Assay NK Cell Please Note Hepatitis A Total & IgM Hep A IgM Ab Confirm Hep Bs Antibody Hep B Core Total Ab [facility] Medical History 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 - Patient with splenomegaly on imaging, lymphadenopathy on imaging, ferritin >5000, pancytopenia, mild transaminitis. Previously admitted for 1 month at age 17-18 with similar presentation, discharge summary states diagnosis of Adult onset Still's disease, but may also be rheumatoid arthritis. Highly suspect HLH or MAS, meets at least 4/9 criteria for HLH (dx usually is 5 or more), pending NK cell activity. - Elevated ESR at 99 and CRP 2.7 on admission. - For HLH, Fibrinogen 234, triglycerides 166, LDH 1418. NK cell function pending. - RF 16.9. DENIA, CCP, and NK cell function pending. - see infectious workup below in possible sepsis - patient requires transfer for guided therapy for HLH / MAS with anakinra and steroids. Anakinra not available at [facility]. Consider further options including prescribing as an outpatient and having her advocate bring in medications. - started pulse dose steroids 02/17/21 for 3 days 1000 mg daily. -spoke with children's choir director at 03/22 who accepted patient for transfer, now awaiting bed availability 2. Possible (less likely) Sepsis, possible pneumonia with hypotension, thrombocytopenia - febrile to near 103 in the ER with hypotension. given zosyn and sepsis bolusing in the ER. Vague joint pains with abdominal, chest pain, and shortness of breath. Thus far infectious workup does not reveal a definitive source. LP performed which showed 1 WBC, 0 RBC. Meningitis panel PCR negative. LP was performed as patient reported a history of being treated for meningitis to rule out viral encephalitis. - HIV negative and hepatitis panel negative thus far. - continue ceftriaxone, azithomycin for possible pneumonia with given symptoms of chest pain and shortness of breath. - TTE unremarkable with no pericardial thickening or effusion. - admitted to ICU with hypotension in the setting of sepsis, has been stable since admission - D-dimer 62426, CTA negative for PE. - no recent travel, no rash to suggest tick borne illness. - patient has family from [place], but was [place] the and has lived here her whole life. - Studies pending: EBV, Parvovirus serologies. - with negative workup, more likely represents HLH or MAS as noted above. 2. Pancytopenia - secondary to problem #1 noted above. - continue to follow daily 3. Elevated transaminase levels - Abdominal CT without biliary pathology. - secondary to problem #1 above. 4. Acute hyponatremia - in setting of hypovolemic from vomiting. - continue NS, improved on repeat labs to 131 today from 126. 5. Acute agitation, resolved - patient with delirium following steroids, required precedex drip overnight but now weaned off - continue seroquel 50mg BID Code: Full, surrogate decision maker is patient's friend Francisca I have utilized all available immediate resources to obtain, update, or review the patient's current medications. Dispo: Pending transfer. Declined by thus far. Accepted at pending bed availability. COVID-19 COVID-19 status: Negative Time Spent With Patient Critical Care time: I spent a total of [] minutes of critical care time on this patient's care today; this time is exclusive of procedural time. Quality VTE Deep Vein Thrombosis/Pulmonary Embolism Present on Admission: No
--- NOTE | 2022-03-22 09:58 | P.TELICUPN_ITS ---
Subjective Subjective IF CAMERA ACTIVATED, patient seen via real-time interactive audiovisual communication: Camera activated Consent obtained for tele-rejoiner care: Yes Patient Location: [place] Provider location (State): [place] Other participants/roles: Current Medications Current Medications Medications: Home Medications No Known Home Medications 03/19/22 [History Confirmed 03/19/22] Visit Medications (administered) Generic Name Dose Route Start Last Admin Trade Name Freq PRN Reason Stop Dose Admin Acetaminophen 650 mg 03/19/22 15:07 03/20/22 08:12 Acetaminophen 325 Mg Tablet PO 650 mg Q6H PRN Administration Fever/Mild Pain (1-3) Benzonatate 100 mg 03/20/22 01:37 03/21/22 20:37 Benzonatate 100 Mg Capsule PO 100 mg TID PRN Administration Cough Enoxaparin Sodium 40 mg 03/20/22 09:00 03/22/22 08:42 Enoxaparin 40 Mg/0.4 Ml Syringe SUBCUT 40 mg DAILY ALISA Administration Hydromorphone HCl 2 mg 03/20/22 09:41 03/20/22 10:09 Hydromorphone 2 Mg Inj IV 2 mg Q3H PRN Administration Pain, Severe (7-10) Sodium Chloride 1,000 mls @ 100 mls/hr 03/19/22 15:07 03/22/22 00:34 Normal Saline 0.9% IV 0 mls/hr CONT ALISA Infusion Ceftriaxone Sodium 2,000 mg/ 100 mls @ 200 mls/hr 03/19/22 17:00 03/21/22 18:35 Sodium Chloride IV 03/24/22 16:59 Infused Q24H ALISA Infusion Methylprednisolone 1,000 mg/ 258 mls @ 125 mls/hr 03/20/22 18:00 03/21/22 23:02 Sodium Chloride IV 03/23/22 17:59 Infused Q24H ALISA Infusion dexmedeTOMIDine in 0.9 % NaCL 400 mcg in 100 mls @ 3.075 mls/hr 03/21/22 23:15 03/22/22 08:43 Precedex IV 1.2 mcg/kg/hr TITRATE ALISA 18.45 mls/hr Administration Protocol 0.2 MCG/KG/HR Ibuprofen 600 mg 03/19/22 15:07 03/21/22 15:34 Ibuprofen 600 Mg Tablet PO 600 mg Q6H PRN Administration Fever/Mild Pain (1-3) Metoclopramide HCl 5 mg 03/21/22 16:45 03/22/22 08:00 Metoclopramide Hcl 5 Mg Tablet PO Not Given [facility] Morphine Sulfate 4 mg 03/20/22 23:19 03/21/22 17:38 Morphine 4 Mg/Ml Inj IV 4 mg Q4HR PRN Administration Pain, Severe (7-10) Ondansetron HCl 4 mg 03/21/22 15:15 03/21/22 15:34 Ondansetron 4 Mg/2 Ml Inj IV 4 mg Q4HR PRN Administration Nausea And Vomiting Oxycodone HCl 10 mg 03/20/22 09:41 03/20/22 20:28 Oxycodone Ir 5 Mg Tablet PO 10 mg Q3H PRN Administration Pain, Moderate (4-6) Sodium Chloride 10 ml 03/20/22 21:00 03/21/22 20:38 Sodium Chloride 0.9% Flush IV 10 ml BID ALISA Administration Objective Labs 03/22/22 04:42 03/22/22 04:42 Labs: Laboratory Results - last 24 hr 03/20/22 03/20/22 03/21/22 04:39 04:39 09:30 WBC RBC Hgb Hct MCV MCH MCHC RDW Plt Count Neut % (Auto) Lymph % (Auto) [place] % (Auto) Eos % (Auto) Baso % (Auto) Neut # (Auto) Lymph # (Auto) [place] # (Auto) Eos # (Auto) Baso # (Auto) RBC Morphology Anisocytosis Pappenheimer Bodies ESR Fibrinogen D-Dimer Sodium Potassium Chloride Carbon Dioxide BUN Creatinine Estimated GFR BUN/Creatinine Ratio Glucose Lactate Calcium Magnesium Ferritin Total Bilirubin AST ALT Alkaline Phosphatase Lactate Dehydrogenase C-Reactive Protein Total Protein Albumin Globulin Albumin/Globulin Ratio Procalcitonin Rheumatoid Factor NK Cell Function Assay Cancelled NK Cell Please Note Cancelled Hepatitis A Total & IgM Positive A Hep A IgM Ab Confirm Negative Hep Bs Antibody Non reactive 03/21/22 03/21/22 03/21/22 23:44 23:44 23:44 WBC 1.6 L* RBC 3.17 L Hgb 8.9 L Hct 26.3 L MCV 82.8 MCH 28.0 MCHC 33.9 RDW 15.2 H Plt Count 146 L Neut % (Auto) 59.3 Lymph % (Auto) 34.7 [place] % (Auto) 5.1 Eos % (Auto) 0.0 L Baso % (Auto) 0.9 Neut # (Auto) 1000 L Lymph # (Auto) 600 L [place] # (Auto) 100 Eos # (Auto) 0 Baso # (Auto) 0 RBC Morphology See below Anisocytosis 1+ H Pappenheimer Bodies 2+ H ESR Fibrinogen 198 L D-Dimer Sodium 133 L Potassium 3.1 L Chloride 98 Carbon Dioxide 25 BUN 4 L Creatinine 0.29 L Estimated GFR > 60 BUN/Creatinine Ratio 13.8 Glucose 154 H Lactate Calcium 8.0 L Magnesium 2.0 Ferritin 5700 H Total Bilirubin 1.0 AST 140 H ALT 59 H Alkaline Phosphatase 65 Lactate Dehydrogenase 1314 H C-Reactive Protein Total Protein 8.6 H Albumin 3.5 Globulin 5.1 H Albumin/Globulin Ratio 0.7 L Procalcitonin 0.21 Rheumatoid Factor 16.1 H NK Cell Function Assay NK Cell Please Note Hepatitis A Total & IgM Hep A IgM Ab Confirm Hep Bs Antibody 03/21/22 03/21/22 03/21/22 23:44 23:49 23:49 WBC RBC Hgb Hct MCV MCH MCHC RDW Plt Count Neut % (Auto) Lymph % (Auto) [place] % (Auto) Eos % (Auto) Baso % (Auto) Neut # (Auto) Lymph # (Auto) [place] # (Auto) Eos # (Auto) Baso # (Auto) RBC Morphology Anisocytosis Pappenheimer Bodies ESR 66 H Fibrinogen D-Dimer Sodium Potassium Chloride Carbon Dioxide BUN Creatinine Estimated GFR BUN/Creatinine Ratio Glucose Lactate 1.0 Calcium Magnesium Ferritin Total Bilirubin AST ALT Alkaline Phosphatase Lactate Dehydrogenase C-Reactive Protein 2.5 H Total Protein Albumin Globulin Albumin/Globulin Ratio Procalcitonin Rheumatoid Factor NK Cell Function Assay NK Cell Please Note Hepatitis A Total & IgM Hep A IgM Ab Confirm Hep Bs Antibody 03/22/22 03/22/22 03/22/22 04:42 04:42 06:39 WBC 1.3 L* RBC 2.94 L Hgb 8.4 L Hct 24.6 L MCV 83.6 MCH 28.5 MCHC 34.0 RDW 15.6 H Plt Count 136 L Neut % (Auto) 55.5 Lymph % (Auto) 38.0 [place] % (Auto) 6.3 Eos % (Auto) 0.0 L Baso % (Auto) 0.2 Neut # (Auto) 700 L Lymph # (Auto) 500 L [place] # (Auto) 100 Eos # (Auto) 0 Baso # (Auto) 0 RBC Morphology See below Anisocytosis 1+ H Pappenheimer Bodies 2+ H ESR Fibrinogen D-Dimer 23528 H Sodium 135 L Potassium 3.7 Chloride 101 Carbon Dioxide 28 BUN 4 L Creatinine 0.34 L Estimated GFR > 60 BUN/Creatinine Ratio 11.8 Glucose 167 H Lactate Calcium 7.8 L Magnesium 2.3 Ferritin Total Bilirubin 0.7 AST 151 H ALT 62 H Alkaline Phosphatase 55 Lactate Dehydrogenase C-Reactive Protein Total Protein 8.1 Albumin 3.4 L Globulin 4.7 H Albumin/Globulin Ratio 0.7 L Procalcitonin Rheumatoid Factor NK Cell Function Assay NK Cell Please Note Hepatitis A Total & IgM Hep A IgM Ab Confirm Hep Bs Antibody Exam Vital Signs (past 8 hours): - 03/22/22 03:30 03/22/22 04:36 03/22/22 07:00 Temperature Pulse Rate 65 61 Respiratory Rate 20 19 Blood Pressure 114/86 Pulse Oximetry 100 100 Oxygen Delivery Method Room Air 03/22/22 07:01 03/22/22 07:01 03/22/22 07:30 Temperature Pulse Rate 62 60 Respiratory Rate 19 18 Blood Pressure 123/94 H Pulse Oximetry 100 100 Oxygen Delivery Method 03/22/22 07:31 03/22/22 07:31 03/22/22 08:00 Temperature 98 F Pulse Rate 61 Respiratory Rate 19 Blood Pressure 118/91 H Pulse Oximetry 100 Oxygen Delivery Method Room Air 03/22/22 08:00 03/22/22 08:01 03/22/22 08:01 Temperature Pulse Rate 60 59 L Respiratory Rate 18 19 Blood Pressure 122/97 H Pulse Oximetry 99 99 Oxygen Delivery Method 03/22/22 08:30 03/22/22 09:00 Temperature Pulse Rate 57 L 70 Respiratory Rate 16 29 H Blood Pressure Pulse Oximetry 100 100 Oxygen Delivery Method Oxygen Delivery Method Room Air Oxygen Flow Rate 0 Quality TeleICU VTE Deep Vein Thrombosis/Pulmonary Embolism Present on Admission: No Assessment & Plan Assessment & Plan narrative: patient seen on daily rounds chart/labs/imaging reviewed 22 year old female admitted to ICU with: AMS r/o stills/HLH pancytopenia currently afebrile, HD stable agitation/derlirum requiring precedex wbc 1.6 CT head -ve Suggest -neurochecks/seizure precautions -pulse dose steroids -mri pending -neuro/psych eval -can start seroquel 50 mg q12, montior qtc, keep less than 500 -wean to dc precedex drip -check daily cbc/coags, suggest heme eval, transufse prn -ivf -monitor ins/outs -replace lytes prn -ngt for feeds if unable to eat -keep glucose 140-180s -gi/dvt ppx -will discuss with bedside provider total ccm time 45 mins Time Spent With Patient Critical Care time: I spent a total of [] minutes of critical care time on this patient's care today; this time is exclusive of procedural time.
[2022-03-22] MEDS: SODIUM CHLORIDE 0.9% FLUSH 10 ML IV ×2 (10:40→20:28)
[2022-03-22] MEDS: QUETIAPINE 100 MG TABLET 50 MG PO ×2 (10:43→20:28)
[2022-03-22] MEDS: SODIUM CHLORIDE 0.9% 1,000 ML 100 ML IV (12:04)
--- NOTE | 2022-03-22 13:35 | CM.DPC ---
DCP: Late entry for 03/21/2021 at 0840, this CM met with pt in her room. Introduced self and role. Pt's friend Francisca was present. This CM provided Pt with Divya at [facility]'s phone # [phone]. This CM also provided Pt and friend with the phone # to [facility] program for resource support with alternative housing when discharged [phone]. Sheree Bartholomew RN Case Manager
[2022-03-22] MEDS: METOCLOPRAMIDE HCL 5 MG TABLET PO ×2 (13:42→16:26)
--- NOTE | 2022-03-22 14:59 | PC.NURSE ---
Addendum entered by Marge Womack R.N. 03/22/22 19:13: 1200 While Danita was visiting she discarded pt's two vape pens and multiple cartridges into the trash. Original Note: Patient's main toy trains and accessories salesperson in [place] is Francisca [phone]. If patient escalates this evening nursing staff can call Danita [phone] and she states she will come stay with patient this evening. Patient has known Francisca since November 2021. Patient has no contact with her family. Prior to Oct patient had a friendship with Iman Neal in [place] who has known patient for an extended period of time. She is available for more history if needed. Iman Neal [phone]. Patient is still confused and occasionally hallucinating. informed Danita (who is currently visiting), another friend Sunny, and patient that she has been accepted at [facility] and we are waiting on a bed for transfer.
[2022-03-22] MEDS: cefTRIAXone 2,000 MG in SODIUM CHLORIDE 0.9% 100 ML 200 MG IV (16:25)
[2022-03-22] MEDS: ACETAMINOPHEN 325 MG TABLET 650 MG PO (16:46)
[2022-03-22] MEDS: methylPREDNISolone 1,000 MG in SODIUM CHLORIDE 0.9% 250 ML 125 MG IV (17:19)
[2022-03-22] MEDS: IBUPROFEN 600 MG TABLET PO (17:44)
--- NOTE | 2022-03-22 20:29 | PC.NURSE ---
Addendum entered by Linh Krishnamurthy R.N. 03/22/22 23:32: patient continually trying to get out of bed. Pulling on restraints, needing reassurance, friend at bedside with patient for about 90 minutes and pt. much calmer while friend at bedside. complaining of back pain medicated with dilaudid for pain and awaiting results. Unable to reorient patient, she insists that it is daytime and she needs to leave. Patient calling 911 complaining that she is here against her will, confirmed with homogenizer operator. Continually reassuring patient that she is safe at the present time. Patient continuing to have hallucinations auditory and visual as far as staff can confirm. Original Note: Patient slightly agitated, wanting to get up and leave. stating she has has been here long enough. Patient reassured and precedex restarted. Attempting to help patient wash face, and them patient becoming more agitated. given 2100 dose of seroquel and awaiting results. Patient needing constant attention at present time.
[2022-03-22] MEDS: HYDROMORPHONE 2 MG INJ IV (23:06)
[2022-03-22] MEDS: dexmedeTOMIDine in 0.9 % NaCL 400 MCG/100 ML PLAST..BAG 12.3 MCG IV (23:44)
[2022-03-23] VITALS (34 sets, daily range): BP systolic 100–138; BP diastolic 59–96; PULSE 39–132; RESP 7–32; TEMP 36.4–37.2; O2SAT 100
[2022-03-23] MEDS: HYDROMORPHONE 2 MG INJ IV ×3 (02:52→21:41)
[2022-03-23 06:55] LABS: EBV EBNA Antibody IgG > 600.0 U/mL (0.0-17.9); EBV Virus IgG Ab > 600.0 U/mL (0.0-17.9); EBV Virus IgM Ab < 36.0 U/mL (0.0-35.9)
--- NOTE | 2022-03-23 08:15 | P.PN_ITS ---
Subjective Subjective Date Patient Seen: 03/23/22 Interval history: Patient required precedex again overnight due to some delirium but has now been weaned off. She is somnolent but answers questions appropriately. Says she doesn't need anything. Still waiting on bed opening up at for transfer. Exam Vital Signs (past 8 hours): - 03/23/22 01:00 03/23/22 01:00 03/23/22 02:00 Temperature Pulse Rate 41 L 43 L Respiratory Rate 10 L 12 Blood Pressure 114/84 03/23/22 02:01 03/23/22 02:01 03/23/22 03:00 Temperature Pulse Rate 39 L 51 L Respiratory Rate 10 L 8 L Blood Pressure 105/75 03/23/22 03:05 03/23/22 03:05 03/23/22 04:00 Temperature Pulse Rate 59 L 62 Respiratory Rate 7 L 9 L Blood Pressure 131/96 H 03/23/22 04:01 03/23/22 04:01 03/23/22 05:00 Temperature Pulse Rate 61 Respiratory Rate 8 L Blood Pressure 118/92 H 112/80 03/23/22 05:00 03/23/22 06:00 03/23/22 06:01 Temperature Pulse Rate 45 L 67 61 Respiratory Rate 9 L 11 L 9 L Blood Pressure 03/23/22 06:01 03/23/22 07:00 03/23/22 07:01 Temperature Pulse Rate 42 L 46 L Respiratory Rate 10 L 9 L Blood Pressure 129/91 H 03/23/22 07:01 Temperature 99 F Pulse Rate Respiratory Rate Blood Pressure 138/88 Oxygen Delivery Method Room Air Oxygen Flow Rate 0 Narrative Exam Narrative: General:?Tall, thin female in no acute distress, but acutely ill. HEENT:? Normocephalic, atraumatic, extraocular muscles intact, oral pharynx is clear and mucous membranes are moist today Neck: supple and symmetric, trachea is midline, no cervical adenopathy. Chest:? Normal AP diameter and contour without kyphoscoliosis, no tachypnea, equal chest rise bilaterally. Lungs:?CTA b/l. Cardio:?RRR no m/r/g. Abdomen: soft, non-distended, non-tender Musculoskeletal:? Muscle strength and tone are equal within normal limits, no deformity. Extremities: No edema or joint effusions. No cyanosis or clubbing. Skin:? Pale,? Warm to touch,dry and intact without rashes, ulcerations or petechiae.? Neuro:? Alert and orientated x3,? sensation to touch intact in all extremities, no gross deficits noted of cranial nerves. Psych:? Patient has a well-kept appearance, appropriate affect, mental status attitude thought context and judgment are appropriate for age. 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 - Patient with splenomegaly on imaging, lymphadenopathy on imaging, ferritin >5000, pancytopenia, mild transaminitis. Previously admitted for 1 month at age 17-18 with similar presentation, discharge summary states diagnosis of Adult onset Still's disease, but may also be rheumatoid arthritis. Highly suspect HLH or MAS, meets at least 4/9 criteria for HLH (dx usually is 5 or more), pending NK cell activity. - Elevated ESR at 99 and CRP 2.7 on admission. - For HLH, Fibrinogen 234, triglycerides 166, LDH 1418. NK cell function pending. - RF 16.9. DENIA, CCP, and NK cell function pending. - see infectious workup below in possible sepsis - patient requires transfer for guided therapy for HLH / MAS with anakinra and steroids. Anakinra not available at [facility]. Consider further options including prescribing as an outpatient and having her advocate bring in medications. - started pulse dose steroids 02/17/21 for 3 days 1000 mg daily. -spoke with canopy stringer at 03/22 who accepted patient for transfer, now awaiting bed availability 2. Possible (less likely) Sepsis, possible pneumonia with hypotension, thrombocytopenia - febrile to near 103 in the ER with hypotension. given zosyn and sepsis bolusing in the ER. Vague joint pains with abdominal, chest pain, and shortness of breath. Thus far infectious workup does not reveal a definitive source. LP performed which showed 1 WBC, 0 RBC. Meningitis panel PCR negative. LP was performed as patient reported a history of being treated for meningitis to rule out viral encephalitis. - HIV negative and hepatitis panel negative thus far. - continue ceftriaxone, azithomycin for possible pneumonia with given symptoms of chest pain and shortness of breath. - TTE unremarkable with no pericardial thickening or effusion. - admitted to ICU with hypotension in the setting of sepsis, has been stable since admission - D-dimer 53944, CTA negative for PE. - no recent travel, no rash to suggest tick borne illness. - patient has family from [place], but was born in the and has lived here her whole life. - Studies pending: EBV, Parvovirus serologies. - with negative workup, more likely represents HLH or MAS as noted above. 2. Pancytopenia - secondary to problem #1 noted above. - continue to follow daily 3. Elevated transaminase levels - Abdominal CT without biliary pathology. - secondary to problem #1 above. 4. Acute hyponatremia - in setting of hypovolemic from vomiting. - continue NS, improved on repeat labs to 131 today from 126. 5. Acute agitation, resolved - patient with delirium following steroids, required precedex drip overnight but now weaned off - continue seroquel 50mg BID Code: Full, surrogate decision maker is patient's friend Francisca I have utilized all available immediate resources to obtain, update, or review the patient's current medications. Dispo: Pending transfer and accepted at pending bed availability. Declined by . COVID-19 COVID-19 status: Negative Time Spent With Patient Critical Care time: I spent a total of [] minutes of critical care time on this patient's care today; this time is exclusive of procedural time. Quality VTE Deep Vein Thrombosis/Pulmonary Embolism Present on Admission: No
[2022-03-23] MEDS: SODIUM CHLORIDE 0.9% FLUSH 10 ML IV ×2 (08:29→21:42)
[2022-03-23] MEDS: METOCLOPRAMIDE HCL 5 MG TABLET PO ×3 (08:35→16:59)
[2022-03-23] MEDS: QUETIAPINE 100 MG TABLET 50 MG PO ×2 (08:35→21:41)
[2022-03-23] MEDS: ENOXAPARIN 40 MG/0.4 ML SYRINGE SUBCUT (08:35)
[2022-03-23] MEDS: SODIUM CHLORIDE 0.9% 1,000 ML 100 ML IV ×2 (09:12→20:07)
[2022-03-23 09:14] LABS: Alanine Aminotransferase 217 IU/L (<35); Albumin 3.4 g/dL (3.5-5.0); Albumin Globulin Ratio 0.7 (1.0-2.8); Alkaline Phosphatase 63 U/L (38-126); Aspartate Aminotransferase 485 IU/L (14-36); Bilirubin Total 0.6 mg/dL (0.2-1.3); Blood Urea Nitrogen 6 mg/dL (7-17); Calcium 7.8 mg/dL (8.4-10.2); Carbon Dioxide 32 mmol/L (22-32); Chloride 100 mmol/L (98-107); Estimated Glomerular Filt Rate > 60 mL/min (>60); Globulin 4.7 g/dL (1.7-4.1); Glucose 133 mg/dL (70-100); HEMOLYSIS < 15 (0-50); Hematocrit 26.6 % (36-46); Hemoglobin 8.9 g/dL (12.0-16.0); Mean Corpuscular HGB Conc 33.6 % (30-36); Mean Corpuscular Hemoglobin 28.2 PG (26-34); Mean Corpuscular Volume 84.1 fL (80-100); Platelet Count 151 X10^3/uL (150-400); Potassium 3.4 mmol/L (3.4-5.1); Red Blood Cell Count 3.17 X10^6/uL (4.0-5.2); Red Cell Distribution Width 15.4 % (11.6-14.8); Sodium 137 mmol/L (137-145); Total Protein 8.1 g/dL (6.3-8.2); White Blood Cell Count 2.2 X10^3/uL (4.5-11.0)
[2022-03-23 09:20] LABS: Add Manual Diff / Slide Review YES
[2022-03-23 10:10] LABS: Neutrophils Absolute Manual 1738 /uL (3000-5900); Total Cells Counted 100
[2022-03-23 10:11] LABS: RBC Morphology Normal Morphology
[2022-03-23] MEDS: ACETAMINOPHEN 325 MG TABLET 650 MG PO (11:09)
[2022-03-23] MEDS: IBUPROFEN 600 MG TABLET PO (11:10)
[2022-03-23] MEDS: POTASSIUM CHLORIDE 20 MEQ/15 ML UDC 40 MEQ PO (11:19)
[2022-03-23 12:44] LABS: Parvovirus B19 IgG 7.2 index (0.0-0.8); Parvovirus B19 IgM 0.1 index (0.0-0.8)
[2022-03-23] MEDS: POTASSIUM CHLORIDE 20 MEQ TAB 40 MEQ PO (13:51)
[2022-03-23] MEDS: cefTRIAXone 2,000 MG in SODIUM CHLORIDE 0.9% 100 ML 200 MG IV (16:59)
[2022-03-23] MEDS: ONDANSETRON 4 MG/2 ML INJ IV (18:49)
[2022-03-23] MEDS: MORPHINE 4 MG/ML INJ IV (18:49)
[2022-03-24] VITALS (20 sets, daily range): BP systolic 105–136; BP diastolic 61–83; PULSE 80–124; RESP 14–30; TEMP 36.7–39.6; O2SAT 96–100
[2022-03-24] MEDS: ACETAMINOPHEN 325 MG TABLET 650 MG PO ×2 (04:35→20:06)
[2022-03-24] MEDS: IBUPROFEN 600 MG TABLET PO (04:35)
[2022-03-24 04:45] LABS: Basophils Absolute Auto 0 /uL (0-100); Basophils Percent Auto 0.2 % (0-2); Eosinophils Absolute Auto 0 /uL (0-450); Hematocrit 25.3 % (36-46); Hemoglobin 8.6 g/dL (12.0-16.0); Lymphocytes Absolute Auto 700 /uL (1100-4500); Lymphocytes Percent Auto 27.5 % (25-40); Mean Corpuscular Hemoglobin 28.3 PG (26-34); Mean Corpuscular Volume 83.2 fL (80-100); Monocytes Absolute Auto 200 /uL (0-900); Monocytes Percent Auto 8.8 % (3-14); Neutrophils Absolute Auto 1700 /uL (1500-7000); Neutrophils Percent Auto 63.5 % (50-75); Platelet Count 154 X10^3/uL (150-400); Red Blood Cell Count 3.05 X10^6/uL (4.0-5.2); Red Cell Distribution Width 15.6 % (11.6-14.8); White Blood Cell Count 2.7 X10^3/uL (4.5-11.0)
[2022-03-24 04:53] LABS: Alanine Aminotransferase 231 IU/L (<35); Albumin 3.3 g/dL (3.5-5.0); Albumin Globulin Ratio 0.7 (1.0-2.8); Alkaline Phosphatase 89 U/L (38-126); Aspartate Aminotransferase 467 IU/L (14-36); Carbon Dioxide 31 mmol/L (22-32); Chloride 100 mmol/L (98-107); Estimated Glomerular Filt Rate > 60 mL/min (>60); Globulin 4.5 g/dL (1.7-4.1); Glucose 87 mg/dL (70-100); HEMOLYSIS < 15 (0-50); Sodium 135 mmol/L (137-145); Total Protein 7.8 g/dL (6.3-8.2)
[2022-03-24 04:57] LABS: Add Manual Diff / Slide Review SLIDE REVIEW
[2022-03-24 05:00] LABS: BUN Creatinine Ratio 4.4 (6-22); Blood Urea Nitrogen 2 mg/dL (7-17)
[2022-03-24] MEDS: ONDANSETRON 4 MG/2 ML INJ IV ×4 (05:04→20:05)
[2022-03-24] MEDS: SODIUM CHLORIDE 0.9% 1,000 ML 100 ML IV (06:24)
[2022-03-24] MEDS: ACETAMINOPHEN 650 MG SUPP PR (06:38)
--- NOTE | 2022-03-24 06:46 | PC.NURSE ---
Pt has been febrile and nauseous this shift; she was medicated for a temp of 103.0, with ibuprofen and Tylenol, which she promptly vomited; blankets removed, fan on; zofran 4mg iv given and Dr. Barron notified; Pt's temp continued to elevate and Dr Barron notified of T-103.3; orders rec'd and pt medicated w/ Tylenol 650mg suppository per rectum
[2022-03-24 07:46] LABS: RBC Morphology Normal Morphology
[2022-03-24] MEDS: METOCLOPRAMIDE HCL 5 MG TABLET PO ×3 (08:08→16:19)
--- NOTE | 2022-03-24 08:35 | P.PN_ITS ---
Subjective Subjective Date Patient Seen: 03/24/22 Interval history: Had fevers to 103.3F overnight. Did not require precedex. Patient this morning resting comfortably and has no complaints. Exam Vital Signs (past 8 hours): - 03/24/22 04:35 03/24/22 04:35 03/24/22 02:00 Temperature 103.0 F H 103.0 F H Pulse Rate 86 Respiratory Rate 26 H Blood Pressure Pulse Oximetry 03/24/22 04:00 03/24/22 04:00 03/24/22 05:11 Temperature 103.0 F H 102.9 F H Pulse Rate 109 H Respiratory Rate 22 Blood Pressure 122/76 Pulse Oximetry 98 03/24/22 05:39 03/24/22 05:40 03/24/22 06:00 Temperature 102.9 F H 102.9 F H 103.3 F H Pulse Rate Respiratory Rate Blood Pressure Pulse Oximetry 03/24/22 07:10 Temperature 98.5 F Pulse Rate Respiratory Rate Blood Pressure Pulse Oximetry Oxygen Delivery Method Room Air Oxygen Flow Rate 0 Narrative Exam Narrative: General:?Tall, thin female in no acute distress, but acutely ill. Sleepy. HEENT:? Normocephalic, atraumatic, extraocular muscles intact, oral pharynx is clear and mucous membranes are moist today Neck: supple and symmetric, trachea is midline, no cervical adenopathy. Chest:? Normal AP diameter and contour without kyphoscoliosis, no tachypnea, equal chest rise bilaterally. Lungs:?CTA b/l. Cardio:?RRR no m/r/g. Abdomen: soft, non-distended, non-tender Musculoskeletal:? Muscle strength and tone are equal within normal limits, no d eformity. Extremities: No edema or joint effusions. No cyanosis or clubbing. Skin:? Pale,? Warm to touch,dry and intact without rashes, ulcerations or petechiae.? Neuro:? Alert and orientated x3,? sensation to touch intact in all extremities, no gross deficits noted of cranial nerves. Psych:? Patient has a well-kept appearance, appropriate affect, mental status attitude thought context and judgment are appropriate for age. Objective Labs 03/24/22 04:20 03/24/22 04:20 Labs: Laboratory Results - last 24 hr 03/20/22 03/23/22 03/23/22 18:15 08:45 08:45 WBC 2.2 L D RBC 3.17 L Hgb 8.9 L Hct 26.6 L MCV 84.1 MCH 28.2 MCHC 33.6 RDW 15.4 H Plt Count 151 Neut % (Auto) Not Reportable Lymph % (Auto) Not Reportable [place] % (Auto) Not Reportable Eos % (Auto) Not Reportable Baso % (Auto) Not Reportable Neut # (Auto) Lymph # (Auto) Not Reportable [place] # (Auto) Not Reportable Eos # (Auto) Baso # (Auto) Not Reportable Total Counted 100 Seg Neutrophils % 76.0 H Band Neutrophils % 3.0 Lymphocytes % (Manual) 14.0 L Atypical Lymphs % 1.0 H Monocytes % (Manual) 6.0 Neutrophils # (Manual) 1738 L RBC Morphology Normal morphology Sodium 137 Potassium 3.4 Chloride 100 Carbon Dioxide 32 BUN 6 L Creatinine 0.40 L Estimated GFR > 60 BUN/Creatinine Ratio 15.0 Glucose 133 H Calcium 7.8 L Total Bilirubin 0.6 AST 485 H ALT 217 H Alkaline Phosphatase 63 Total Protein 8.1 Albumin 3.4 L Globulin 4.7 H Albumin/Globulin Ratio 0.7 L Parvovirus B19 IgG Ab 7.2 H Parvovirus B19 IgM Ab 0.1 03/24/22 03/24/22 04:20 04:20 WBC 2.7 L RBC 3.05 L Hgb 8.6 L Hct 25.3 L MCV 83.2 MCH 28.3 MCHC 34.0 RDW 15.6 H Plt Count 154 Neut % (Auto) 63.5 Lymph % (Auto) 27.5 [place] % (Auto) 8.8 Eos % (Auto) 0.0 L Baso % (Auto) 0.2 Neut # (Auto) 1700 Lymph # (Auto) 700 L [place] # (Auto) 200 Eos # (Auto) 0 Baso # (Auto) 0 Total Counted Seg Neutrophils % Band Neutrophils % Lymphocytes % (Manual) Atypical Lymphs % Monocytes % (Manual) Neutrophils # (Manual) RBC Morphology Normal morphology Sodium 135 L Potassium 3.0 L Chloride 100 Carbon Dioxide 31 BUN 2 L Creatinine 0.45 L Estimated GFR > 60 BUN/Creatinine Ratio 4.4 L Glucose 87 Calcium 8.0 L Total Bilirubin 1.0 AST 467 H ALT 231 H Alkaline Phosphatase 89 Total Protein 7.8 Albumin 3.3 L Globulin 4.5 H Albumin/Globulin Ratio 0.7 L Parvovirus B19 IgG Ab Parvovirus B19 IgM Ab [facility]1983 Medical History 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 - Patient with splenomegaly on imaging, lymphadenopathy on imaging, ferritin >5000, pancytopenia, mild transaminitis. Previously admitted for 1 month at age 17-18 with similar presentation, discharge summary states diagnosis of Adult onset Still's disease, but may also be rheumatoid arthritis. Highly suspect HLH or MAS, meets at least 4/9 criteria for HLH (dx usually is 5 or more), pending NK cell activity. - Elevated ESR at 99 and CRP 2.7 on admission. - For HLH, Fibrinogen 234, triglycerides 166, LDH 1418. NK cell function pending. - RF 16.9. DENIA, CCP, and NK cell function pending. - see infectious workup below in possible sepsis - patient requires transfer for guided therapy for HLH / MAS with anakinra and steroids. Anakinra not available at [facility]. Consider further options including prescribing as an outpatient and having her advocate bring in medications. - started pulse dose steroids 02/17/21 for 3 days 1000 mg daily. -spoke with cribber at 03/22 who accepted patient for transfer, now awaiting bed availability 2. Possible (less likely) Sepsis, possible pneumonia with hypotension, thrombocytopenia - febrile to near 103 in the ER with hypotension. given zosyn and sepsis bolusing in the ER. Vague joint pains with abdominal, chest pain, and shortness of breath. Thus far infectious workup does not reveal a definitive source. LP performed which showed 1 WBC, 0 RBC. Meningitis panel PCR negative. LP was performed as patient reported a history of being treated for meningitis to rule out viral encephalitis. - HIV negative and hepatitis panel negative thus far. - continue ceftriaxone, azithomycin for possible pneumonia with given symptoms of chest pain and shortness of breath. - TTE unremarkable with no pericardial thickening or effusion. - admitted to ICU with hypotension in the setting of sepsis, has been stable since admission - D-dimer 49333 and repeat 31257, CTA negative for PE. - no recent travel, no rash to suggest tick borne illness. - patient has family from [place], but was [place] the [place] and has lived here her whole life. - EBV, Parvovirus serologies returned both with IgG positive but IgM negative - with negative workup, more likely represents HLH or MAS as noted above. 2. Pancytopenia - secondary to problem #1 noted above. - continue to follow daily 3. Elevated transaminase levels - Abdominal CT without biliary pathology. - secondary to problem #1 above. 4. Acute hyponatremia - in setting of hypovolemic from vomiting. - continue NS, improved on repeat labs to 131 today from 126. 5. Acute agitation, resolved - patient with delirium following steroids, required precedex drip overnight but now weaned off - continue seroquel 50mg BID Code: Full, surrogate decision maker is patient's friend Francisca I have utilized all available immediate resources to obtain, update, or review the patient's current medications. Dispo: Pending transfer and accepted at pending bed availability. Declined by . COVID-19 COVID-19 status: Negative Time Spent With Patient Critical Care time: I spent a total of [] minutes of critical care time on this patient's care today; this time is exclusive of procedural time. Quality VTE Deep Vein Thrombosis/Pulmonary Embolism Present on Admission: No
[2022-03-24] MEDS: POTASSIUM CHLORIDE 20 MEQ TAB 40 MEQ PO ×2 (08:50→16:19)
[2022-03-24] MEDS: QUETIAPINE 100 MG TABLET 50 MG PO (08:50)
[2022-03-24] MEDS: ENOXAPARIN 40 MG/0.4 ML SYRINGE SUBCUT (08:51)
[2022-03-24] MEDS: SODIUM CHLORIDE 0.9% FLUSH 10 ML IV ×2 (09:01→20:56)
[2022-03-24] MEDS: MORPHINE 4 MG/ML INJ IV ×3 (09:08→20:05)
[2022-03-24] MEDS: DEXTROSE 5%-0.9% NS 1,000 ML 100 ML IV ×2 (10:53→20:54)
--- NOTE | 2022-03-24 13:18 | DIET.CONS ---
Dietary Consultation Note Admission Date: 03/19/2022 13:32 Assessment: 22y F admitted for Still's Disease flair screened by RD for low PO and MNA 6. Pt with poor POs this hospitalization 0-50% x5d partially due to encephalopathy from pulse steroids as well as pt reporting very low appetite since getting sick. Pt MNA 6 (malnourished) with 9.1% unintentional weight loss in <3mo. Pt reports despite housing insecurity, she has enough food at the places she stays. Pt enjoys fruit, veggies, pasta, sandwiches, avocado, yogurt parfaits with banana, berries, granola and smoothies like strawberry banana. Pt with new dextrose IVF today to support kcal needs. Ht: 180.34 cm Wt: 61.5 kg (-9.1% in <3mo, severe) BMI: 18.8 UBW: 67kg Last BM: 03/19/22 (03/19/22 14:49) MNA: 6 Marshall Score: 23 Diet: 03/19/22 Lunch General (Regular) Diet Diet Modifications: Nutrition Percent Meal Consumed 50% 03/23/22 14:04 Percent Meal Consumed cereal 03/23/22 10:02 Labs: RBC 3.05 X10^6/uL (4.0-5.2) L 03/24/22 04:20 Hgb 8.6 g/dL (12.0-16.0) L 03/24/22 04:20 Hct 25.3 % (36-46) L 03/24/22 04:20 Creatinine 0.45 mg/dL (0.52-1.04) L 03/24/22 04:20 Lactate 1.0 mmol/L (0.7-2.1) 03/21/22 23:44 Ferritin 5700 ng/mL (6-137) H 03/21/22 23:44 Nutrition Diagnosis: Severe Acute Protein Calorie Malnutrition r/t inadequate oral intake aeb 9.1% unintentional weight loss in <3mo (severe), 0-50% EER x5d during hospitalization, MNA 6 (malnourished), pt with housing insecurity and and borderline low BMI for age. Interventions: 1. Collaborated c pt on ways to increase protein and kcal needs while hospitalized. Kitchen notified at patients preferences for high pro/high kcal options. 2. Sending 1/2 portions to not overwhelm pt. 3. May consider appetite stimulant beyond her steroid therapy. EER: 79-91g PRO (1.31.5g/kg per PCM), 1800kcals (30kcal/kg per PCM) Monitoring/Evaluations: POs Electronically Signed by: Sada Lu 03/24/22 13:18 Clinical Dietitian [address] [address]
--- NOTE | 2022-03-24 13:19 | CM.DPC ---
DCP Cont: Discussed patient during team rounds. Continues to be febrile. Hospitalist is working on getting patient transferred to [facility] where she can see a general lithographic worker. It is noted that hospitalist did speak to a general lithographic worker at [facility] that accepted patient for transfer, just awaiting bed. It is also noted that DCP brought in [facility] for housing, and Divya, at [facility]. P: DCP to continue to follow for needs. At this time, it is noted that patient is supposed to be transferred to [facility] as soon as a bed becomes available. Kymberly Linares, ANGELINA/Certified Medical Assistant
[2022-03-24 18:11] LABS: CCP Antibodies IgG/IgA 4 units (0-19)
[2022-03-25] VITALS (9 sets, daily range): BP systolic 110–157; BP diastolic 57–85; PULSE 80–127; RESP 16–22; TEMP 37–39.6; O2SAT 100
[2022-03-25] MEDS: ACETAMINOPHEN 325 MG TABLET 650 MG PO ×2 (04:35→17:08)
[2022-03-25] MEDS: MORPHINE 4 MG/ML INJ IV (04:35)
[2022-03-25] MEDS: ONDANSETRON 4 MG/2 ML INJ IV (04:35)
[2022-03-25 05:01] LABS: Add Manual Diff / Slide Review NO; Basophils Absolute Auto 0 /uL (0-100); Basophils Percent Auto 0.7 % (0-2); Eosinophils Absolute Auto 0 /uL (0-450); Hematocrit 23.7 % (36-46); Lymphocytes Absolute Auto 1300 /uL (1100-4500); Lymphocytes Percent Auto 29.9 % (25-40); Mean Corpuscular HGB Conc 33.7 % (30-36); Mean Corpuscular Hemoglobin 27.9 PG (26-34); Mean Corpuscular Volume 82.9 fL (80-100); Monocytes Absolute Auto 100 /uL (0-900); Monocytes Percent Auto 2.6 % (3-14); Neutrophils Absolute Auto 2900 /uL (1500-7000); Neutrophils Percent Auto 66.8 % (50-75); Platelet Count 125 X10^3/uL (150-400); Red Blood Cell Count 2.86 X10^6/uL (4.0-5.2); Red Cell Distribution Width 15.6 % (11.6-14.8); White Blood Cell Count 4.4 X10^3/uL (4.5-11.0)
[2022-03-25 05:03] LABS: Alanine Aminotransferase 162 IU/L (<35); Albumin 3.1 g/dL (3.5-5.0); Albumin Globulin Ratio 0.7 (1.0-2.8); Alkaline Phosphatase 89 U/L (38-126); Aspartate Aminotransferase 251 IU/L (14-36); BUN Creatinine Ratio 8.9 (6-22); Bilirubin Total 1.1 mg/dL (0.2-1.3); Blood Urea Nitrogen 4 mg/dL (7-17); Calcium 7.5 mg/dL (8.4-10.2); Carbon Dioxide 32 mmol/L (22-32); Chloride 96 mmol/L (98-107); Estimated Glomerular Filt Rate > 60 mL/min (>60); Globulin 4.2 g/dL (1.7-4.1); Glucose 121 mg/dL (70-100); HEMOLYSIS < 15 (0-50); Sodium 133 mmol/L (137-145); Total Protein 7.3 g/dL (6.3-8.2)
[2022-03-25 05:13] LABS: Potassium 2.7 mmol/L (3.4-5.1)
--- NOTE | 2022-03-25 05:20 | PC.NURSE ---
public policy manager: Critical lab of potassium 2.7 reported to Elyssa Thompson NP. Orders received.
[2022-03-25] MEDS: POTASSIUM CHLORIDE IN WATER 10 MEQ/100 ML PIGGYBACK 100 MEQ IV ×8 (05:41→13:49)
[2022-03-25] MEDS: DEXTROSE 5%-0.9% NS 1,000 ML 100 ML IV ×2 (06:36→16:02)
--- NOTE | 2022-03-25 07:23 | PM.PN.1 ---
Subjective Subjective Date Patient Seen: 03/25/22 Interval history: Patient had some chest pain this morning. Said she was very anxious. EKG normal. Still not eating barely any so will start TF through [facility]. Exam Vital Signs (past 8 hours): - 03/25/22 00:00 03/25/22 04:00 Temperature 98.8 F 100.1 F H Pulse Rate 108 H 118 H Respiratory Rate 16 16 Blood Pressure 123/60 142/81 H Pulse Oximetry 100 100 Oxygen Delivery Method Room Air Oxygen Flow Rate 0 Narrative Exam Narrative: General:?Tall, thin female in no acute distress, but acutely ill. Sleepy. HEENT:? Normocephalic, atraumatic, extraocular muscles intact, oral pharynx is clear and mucous membranes are moist today Neck: supple and symmetric, trachea is midline, no cervical adenopathy. Chest:? Normal AP diameter and contour without kyphoscoliosis, no tachypnea, equal chest rise bilaterally. Lungs:?CTA b/l. Cardio:?RRR no m/r/g. Abdomen: soft, non-distended, non-tender Musculoskeletal:? Muscle strength and tone are equal within normal limits, no deformity. Extremities: No edema or joint effusions. No cyanosis or clubbing. Skin:? Pale,? Warm to touch,dry and intact without rashes, ulcerations or petechiae.? Neuro:? Alert and orientated x3,? sensation to touch intact in all extremities, no gross deficits noted of cranial nerves. Psych:? Patient has a well-kept appearance, appropriate affect, mental status attitude thought context and judgment are appropriate for age. Objective Labs 03/25/22 04:30 03/25/22 04:30 Labs: Laboratory Results - last 24 hr 03/20/22 03/24/22 03/25/22 18:30 04:20 04:30 WBC RBC Hgb Hct MCV MCH MCHC RDW Plt Count Neut % (Auto) Lymph % (Auto) [place] % (Auto) Eos % (Auto) Baso % (Auto) Neut # (Auto) Lymph # (Auto) [place] # (Auto) Eos # (Auto) Baso # (Auto) RBC Morphology Normal morphology Sodium 133 L Potassium 2.7 L* Chloride 96 L Carbon Dioxide 32 BUN 4 L Creatinine 0.45 L Estimated GFR > 60 BUN/Creatinine Ratio 8.9 Glucose 121 H Calcium 7.5 L Total Bilirubin 1.1 AST 251 H ALT 162 H Alkaline Phosphatase 89 Total Protein 7.3 Albumin 3.1 L Globulin 4.2 H Albumin/Globulin Ratio 0.7 L CCP IgG/IgA Ab 4 03/25/22 04:30 WBC 4.4 L D RBC 2.86 L Hgb 8.0 L Hct 23.7 L MCV 82.9 MCH 27.9 MCHC 33.7 RDW 15.6 H Plt Count 125 L Neut % (Auto) 66.8 Lymph % (Auto) 29.9 [place] % (Auto) 2.6 L Eos % (Auto) 0.0 L Baso % (Auto) 0.7 Neut # (Auto) 2900 Lymph # (Auto) 1300 [place] # (Auto) 100 Eos # (Auto) 0 Baso # (Auto) 0 RBC Morphology Sodium Potassium Chloride Carbon Dioxide BUN Creatinine Estimated GFR BUN/Creatinine Ratio Glucose Calcium Total Bilirubin AST ALT Alkaline Phosphatase Total Protein Albumin Globulin Albumin/Globulin Ratio CCP IgG/IgA Ab [facility] Medical History 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 - Patient with splenomegaly on imaging, lymphadenopathy on imaging, ferritin >5000, pancytopenia, mild transaminitis. Previously admitted for 1 month at age 17-18 with similar presentation, discharge summary states diagnosis of Adult onset Still's disease, but may also be rheumatoid arthritis. Highly suspect HLH or MAS, meets at least 4/9 criteria for HLH (dx usually is 5 or more), pending NK cell activity. - Elevated ESR at 99 and CRP 2.7 on admission. - For HLH, Fibrinogen 234, triglycerides 166, LDH 1418. NK cell function pending. - RF 16.9. DENIA, CCP, and NK cell function pending. - see infectious workup below in possible sepsis - patient requires transfer for guided therapy for HLH / MAS with anakinra and steroids. Anakinra not available at [facility]. Consider further options including prescribing as an outpatient and having her advocate bring in medications. - started pulse dose steroids 02/17/21 for 3 days 1000 mg daily. -spoke with lead process engineer at 03/22 who accepted patient for transfer, now awaiting bed availability 2. Possible (less likely) Sepsis, possible pneumonia with hypotension, thrombocytopenia - febrile to near 103 in the ER with hypotension. given zosyn and sepsis bolusing in the ER. Vague joint pains with abdominal, chest pain, and shortness of breath. Thus far infectious workup does not reveal a definitive source. LP performed which showed 1 WBC, 0 RBC. Meningitis panel PCR negative. LP was performed as patient reported a history of being treated for meningitis to rule out viral encephalitis. - HIV negative and hepatitis panel negative thus far. - continue ceftriaxone, azithomycin for possible pneumonia with given symptoms of chest pain and shortness of breath. - TTE unremarkable with no pericardial thickening or effusion. - admitted to ICU with hypotension in the setting of sepsis, has been stable since admission - D-dimer 64956 and repeat 92551, CTA negative for PE. - no recent travel, no rash to suggest tick borne illness. - patient has family from [place], but was [place] the [place] and has lived here her whole life. - EBV, Parvovirus serologies returned both with IgG positive but IgM negative - with negative workup, more likely represents HLH or MAS as noted above. - blood cultures 03/19 with staph species in 02/09 so likely contaminant, repeat on 03/23 neg at 24 hours 2. Pancytopenia - secondary to problem #1 noted above. - continue to follow daily 3. Elevated transaminase levels - Abdominal CT without biliary pathology. - secondary to problem #1 above. 4. Acute hyponatremia - in setting of hypovolemic from vomiting. - continue NS, improved on repeat labs to 131 today from 126. 5. Acute agitation, resolved - patient with delirium following steroids, required precedex drip overnight but now weaned off - now off seroquel 6. Severe Acute Protein Calorie Malnutrition r/t inadequate oral intake aeb 9.1% unintentional weight loss in <3mo (severe), 0-50% EER x5d during hospitalization, MNA 6 (malnourished), pt with housing insecurity and and borderline low BMI for age. - started TF via [facility] on 03/25 Code: Full, surrogate decision maker is patient's friend Francisca I have utilized all available immediate resources to obtain, update, or review the patient's current medications. Dispo: Pending transfer and accepted at pending bed availability. Declined by . COVID-19 COVID-19 status: Negative Time Spent With Patient Critical Care time: I spent a total of [] minutes of critical care time on this patient's care today; this time is exclusive of procedural time. Quality VTE Deep Vein Thrombosis/Pulmonary Embolism Present on Admission: No
[2022-03-25] MEDS: POTASSIUM CHLORIDE 20 MEQ TAB 40 MEQ PO (07:47)
[2022-03-25] MEDS: METOCLOPRAMIDE HCL 5 MG TABLET PO (07:48)
[2022-03-25] MEDS: ENOXAPARIN 40 MG/0.4 ML SYRINGE SUBCUT (07:48)
[2022-03-25] MEDS: ONDANSETRON 4 MG ODT SL ×2 (09:22→19:19)
[2022-03-25] MEDS: OLANZapine ODT 10 MG TAB 5 MG PO (09:23)
[2022-03-25] MEDS: SODIUM CHLORIDE 0.9% FLUSH 10 ML IV ×2 (09:25→20:57)
[2022-03-25] MEDS: LORazepam 2 MG/ML INJ 1 MG IV (10:30)
--- NOTE | 2022-03-25 10:42 | CM.DPC ---
DCP Cont: Discussed patient during team rounds. Patient continues to not have an appetite. Hospitalist will speak to patient today to let her know if she is not able to tolerate, or attempt food, may need TPN. Patient continues to be in need of transfer to [facility], due to her complex medical needs. [place], nursing care attendant, did check in with [facility], they have accepted her, but awaiting bed. Hospitalist also indicated that patient is more alert today. P: DCP to continue to check in for needs. At this time, awaiting bed availability at [facility]. Kymberly Linares RN/Beef Splitter
--- NOTE | 2022-03-25 11:14 | DIET.CONS ---
Dietary Consultation Note Admission Date: 03/19/2022 13:32 Assessment: Pt continues with poor appetite and inadequate PO. States she has not consumed smoothie sent by kitchen last night or tonight. Discussed considerations for nutrition support in rounds. Plan is to try to manage her nausea first to see if her PO will improve. Zyprexa and Zofran added today. If unable consume PO, may benefit from tube feed if not having excessive vomiting, otherwise potential consideration for TPN. Will continue to evaluate. Ht: 180.34 cm Wt: 61.5 kg BMI: 18.8 Last BM: 03/19/22 (03/19/22 14:49) MNA: 6 Marshall Score: 21 Diet: 03/19/22 Lunch General (Regular) Diet Diet Modifications: Nutrition Percent Meal Consumed 25% 03/24/22 14:55 Percent Meal Consumed 50% 03/23/22 14:04 Labs: RBC 2.86 X10^6/uL (4.0-5.2) L 03/25/22 04:30 Hgb 8.0 g/dL (12.0-16.0) L 03/25/22 04:30 Hct 23.7 % (36-46) L 03/25/22 04:30 Creatinine 0.45 mg/dL (0.52-1.04) L 03/25/22 04:30 Lactate 1.0 mmol/L (0.7-2.1) 03/21/22 23:44 Ferritin 5700 ng/mL (6-137) H 03/21/22 23:44 Nutrition Diagnosis: Severe Acute Protein Calorie Malnutrition r/t inadequate oral intake aeb 9.1% unintentional weight loss in <3mo (severe), 0-50% EER x5d during hospitalization, MNA 6 (malnourished), pt with housing insecurity and and borderline low BMI for age. EER: 79-91g PRO (1.31.5g/kg per PCM), 1800kcals (30kcal/kg per PCM) Monitoring/Evaluations: POs Electronically Signed by: Joann Sims 03/25/22 11:14 Clinical Dietitian [address] [address]
[2022-03-25 15:34] LABS: Magnesium 1.5 mg/dL (1.6-2.3)
--- NOTE | 2022-03-25 15:35 | DI.RAD.S_ITS ---
PROCEDURE: XR KUB INDICATIONS: enteral feeding tube placement TECHNIQUE: One view of the abdomen acquired. COMPARISON: None. FINDINGS: Surgical changes and devices: Enteric tube tip is seen in distal small stomach lumen/proximal duodenum in right upper quadrant abdomen. Bowel: Bowel gas pattern is nonspecific for obstruction. Air distended colon loops are noted throughout abdomen. No gross free air. Soft tissues: No suspicious abdominal calcifications. Visualized solid organ contours appear normal in size. Bones: No suspicious bony lesions. IMPRESSION: Anterior tube tip is below the right hemidiaphragm and is likely within distal stomach lumen/proximal duodenum. No gross free air. Dictated by: Pierre Barry M.D. on 03/25/2022 at 15:59 Approved by: Pierre Barry M.D. on 03/25/2022 at 16:00
[2022-03-25 15:49] LABS: HEMOLYSIS < 15 (0-50); Potassium 3.7 mmol/L (3.4-5.1)
[2022-03-25] MEDS: MAGNESIUM SULFATE 4 GM/100 ML PIGGYBACK IV (15:58)
--- NOTE | 2022-03-25 17:19 | DIET.PN1 ---
Dietary Progress Note Assessment: Starting TF with Dobhoff. Concerns for gaging with regular sized TF. Recommend slow titration of TF to avoid refeeding syndrome. Diet: 03/19/22 Lunch General (Regular) Diet Diet Modifications: 03/26/22 Breakfast Tube Feeding Diet Diet Modifications: TF Supplement type: Jevity 1.2 berta TF mode of delivery: Continuous Starting flow rate mL/hr: 10 Flow rate goal mL/hr: 65 Titration Schedule to reach Goal Rate: 10-15ml/hr q 12 hours Max total daily volume in mL: 2,159 Free fluid: 150 Free Water Frequency: Q4H Nutrition Percent Meal Consumed Pt tried having breakfast but 03/25/22 11:17 felt too sick Percent Meal Consumed 25% 03/24/22 14:55 Type of Feeding Tube enfit enteral feeding tube 03/25/22 15:55 Nutrition Diagnosis: Severe Acute Protein Calorie Malnutrition r/t inadequate oral intake aeb 9.1% unintentional weight loss in <3mo (severe), 0-50% EER x5d during hospitalization, MNA 6 (malnourished), pt with housing insecurity and and borderline low BMI for age. Interventions: 1. Recc TF continuous Jevity 1.2 starting at 10mL/h titrating up by 10-15mL q 12h as tolerated until reaching goal rate of 65mL/h. Recc 150mL free water flushes q 4h. This provides 1872kcal 100% kcals, 87g PRO 100% PRO, and 2159ml 100% fluids 2. HOB elevated at least 30 degrees at all time to reduce risk of aspiration. 3. Daily weights 4. Pt at high risk for refeeding, check refeeding labs BID and replenish prn EER: 79-91g PRO (1.31.5g/kg per PCM), 1845kcals (30kcal/kg per PCM); 1845-2153ml fluids (30-35ml/kg) Monitoring/Evaluations: RD f/u 1-2 days to monitor TF tolerance Electronically Signed by: Joann Sims 03/25/22 17:19 Clinical Dietitian [address] [address]
[2022-03-25 19:05] LABS: ANA Screen, IFA Positive (.); Speckled Pattern >1:1280 (.)
[2022-03-25] MEDS: OXYCODONE IR 5 MG TABLET 10 MG PO (20:11)
[2022-03-25] MEDS: MELATONIN 3 MG TABLET PO (20:57)
--- NOTE | 2022-03-25 21:38 | PC.NURSE ---
manufacturing shift supervisor: Patient had emesis, vomited daysi through mouth. Assisted patient in removing tube. Patient declined reinsertion but will cooperate with reinsertion in the morning.
[2022-03-26 00:08] VITALS: BP 120/74; PULSE 117; RESP 16; TEMP 36.9; O2SAT 100
[2022-03-26 04:49] VITALS: BP 114/58; PULSE 133; RESP 16; TEMP 37.3; O2SAT 100
[2022-03-26] MEDS: OXYCODONE IR 5 MG TABLET 10 MG PO (04:51)
[2022-03-26] MEDS: ONDANSETRON 4 MG/2 ML INJ IV (04:51)
[2022-03-26 05:20] LABS: Add Manual Diff / Slide Review NO; Basophils Absolute Auto 100 /uL (0-100); Basophils Percent Auto 0.9 % (0-2); Eosinophils Absolute Auto 0 /uL (0-450); Hematocrit 23.3 % (36-46); Hemoglobin 7.8 g/dL (12.0-16.0); Lymphocytes Absolute Auto 1700 /uL (1100-4500); Lymphocytes Percent Auto 28.1 % (25-40); Mean Corpuscular HGB Conc 33.5 % (30-36); Mean Corpuscular Volume 83.4 fL (80-100); Monocytes Absolute Auto 200 /uL (0-900); Monocytes Percent Auto 3.3 % (3-14); Neutrophils Absolute Auto 4100 /uL (1500-7000); Neutrophils Percent Auto 67.7 % (50-75); Platelet Count 107 X10^3/uL (150-400); Red Blood Cell Count 2.79 X10^6/uL (4.0-5.2); Red Cell Distribution Width 15.7 % (11.6-14.8); White Blood Cell Count 6.1 X10^3/uL (4.5-11.0)
[2022-03-26 07:08] LABS: Alanine Aminotransferase 120 IU/L (<35); Albumin 3.1 g/dL (3.5-5.0); Albumin Globulin Ratio 0.8 (1.0-2.8); Alkaline Phosphatase 91 U/L (38-126); Aspartate Aminotransferase 138 IU/L (14-36); BUN Creatinine Ratio 13.3 (6-22); Bilirubin Total 1.2 mg/dL (0.2-1.3); Blood Urea Nitrogen 6 mg/dL (7-17); Calcium 7.2 mg/dL (8.4-10.2); Carbon Dioxide 29 mmol/L (22-32); Chloride 94 mmol/L (98-107); Estimated Glomerular Filt Rate > 60 mL/min (>60); Globulin 4.1 g/dL (1.7-4.1); Glucose 108 mg/dL (70-100); HEMOLYSIS < 15 (0-50); Potassium 3.7 mmol/L (3.4-5.1); Sodium 128 mmol/L (137-145); Total Protein 7.2 g/dL (6.3-8.2)
[2022-03-26 08:01] LABS: Magnesium 2.3 mg/dL (1.6-2.3)
--- NOTE | 2022-03-26 08:22 | PM.PN.1 ---
Exam Vital Signs (past 8 hours): - 03/26/22 04:49 Temperature 99.1 F Pulse Rate 133 H Respiratory Rate 16 Blood Pressure 114/58 L Pulse Oximetry 100 Oxygen Flow Rate 0 Oxygen Delivery Method Room Air Oxygen Flow Rate 0 Narrative Exam Narrative: General:?Tall, thin female in no acute distress, but acutely ill. Sleepy. HEENT:? Normocephalic, atraumatic, extraocular muscles intact, oral pharynx is clear and mucous membranes are moist today Neck: supple and symmetric, trachea is midline, no cervical adenopathy. Chest:? Normal AP diameter and contour without kyphoscoliosis, no tachypnea, equal chest rise bilaterally. Lungs:?CTA b/l. Cardio:?RRR no m/r/g. Abdomen: soft, non-distended, non-tender Musculoskeletal:? Muscle strength and tone are equal within normal limits, no deformity. Extremities: No edema or joint effusions. No cyanosis or clubbing. Skin:? Pale,? Warm to touch,dry and intact without rashes, ulcerations or petechiae.? Neuro:? Alert and orientated x3,? sensation to touch intact in all extremities, no gross deficits noted of cranial nerves. Psych:? Patient has a well-kept appearance, appropriate affect, mental status attitude thought context and judgment are appropriate for age. Objective Labs 03/26/22 05:00 03/26/22 05:00 Labs: Laboratory Results - last 24 hr 03/21/22 03/25/22 03/26/22 04:07 15:15 05:00 WBC RBC Hgb Hct MCV MCH MCHC RDW Plt Count Neut % (Auto) Lymph % (Auto) [place] % (Auto) Eos % (Auto) Baso % (Auto) Neut # (Auto) Lymph # (Auto) [place] # (Auto) Eos # (Auto) Baso # (Auto) Sodium 128 L Potassium 3.7 3.7 Chloride 94 L Carbon Dioxide 29 BUN 6 L Creatinine 0.45 L Estimated GFR > 60 BUN/Creatinine Ratio 13.3 Glucose 108 H Calcium 7.2 L Magnesium 1.5 L Total Bilirubin 1.2 AST 138 H ALT 120 H Alkaline Phosphatase 91 Total Protein 7.2 Albumin 3.1 L Globulin 4.1 Albumin/Globulin Ratio 0.8 L Anti-Nuclear Antibody Positive A DENIA Homogeneous Pattern TNP DENIA Nucleolar Pattern TNP DENIA Spindle [place]ica Pattern TNP DENIA Midbody Pattern TNP DENIA Centriole Pattern TNP DENIA Nuclear Dot Pattern TNP DENIA PCNA Pattern TNP DENIA Nuclear Membr Pat TNP DENIA Speckled Pattern >1:1280 A DENIA Centromere Pattern TNP DENIA Comment Comment 03/26/22 03/26/22 05:00 06:51 WBC 6.1 RBC 2.79 L Hgb 7.8 L Hct 23.3 L MCV 83.4 MCH 28.0 MCHC 33.5 RDW 15.7 H Plt Count 107 L Neut % (Auto) 67.7 Lymph % (Auto) 28.1 [place] % (Auto) 3.3 Eos % (Auto) 0.0 L Baso % (Auto) 0.9 Neut # (Auto) 4100 Lymph # (Auto) 1700 [place] # (Auto) 200 Eos # (Auto) 0 Baso # (Auto) 100 Sodium Potassium Chloride Carbon Dioxide BUN Creatinine Estimated GFR BUN/Creatinine Ratio Glucose Calcium Magnesium 2.3 Total Bilirubin AST ALT Alkaline Phosphatase Total Protein Albumin Globulin Albumin/Globulin Ratio Anti-Nuclear Antibody DENIA Homogeneous Pattern DENIA Nucleolar Pattern DENIA Spindle Danica Pattern DENIA Midbody Pattern DENIA Centriole Pattern DENIA Nuclear Dot Pattern DENIA PCNA Pattern DENIA Nuclear Membr Pat DENIA Speckled Pattern DENIA Centromere Pattern DENIA Comment [facility] Medical History 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 - Patient with splenomegaly on imaging, lymphadenopathy on imaging, ferritin >5000, pancytopenia, mild transaminitis. Previously admitted for 1 month at age 17-18 with similar presentation, discharge summary states diagnosis of Adult onset Still's disease, but may also be rheumatoid arthritis. Highly suspect HLH or MAS, meets at least 4/9 criteria for HLH (dx usually is 5 or more), pending NK cell activity. - Elevated ESR at 99 and CRP 2.7 on admission. - For HLH, Fibrinogen 234, triglycerides 166, LDH 1418. NK cell function pending. - RF 16.9. DENIA, CCP, and NK cell function pending. - see infectious workup below in possible sepsis - patient requires transfer for guided therapy for HLH / MAS with anakinra and steroids. [facility]ra not available at [facility]. Consider further options including prescribing as an outpatient and having her advocate bring in medications. - started pulse dose steroids 02/17/21 for 3 days 1000 mg daily. -spoke with dispatcher ship pilot at 03/22 who accepted patient for transfer, now awaiting bed availability 2. Possible (less likely) Sepsis, possible pneumonia with hypotension, thrombocytopenia - febrile to near 103 in the ER with hypotension. given zosyn and sepsis bolusing in the ER. Vague joint pains with abdominal, chest pain, and shortness of breath. Thus far infectious workup does not reveal a definitive source. LP performed which showed 1 WBC, 0 RBC. Meningitis panel PCR negative. LP was performed as patient reported a history of being treated for meningitis to rule out viral encephalitis. - HIV negative and hepatitis panel negative thus far. - continue ceftriaxone, azithomycin for possible pneumonia with given symptoms of chest pain and shortness of breath. - TTE unremarkable with no pericardial thickening or effusion. - admitted to ICU with hypotension in the setting of sepsis, has been stable since admission - D-dimer 18273 and repeat 29731, CTA negative for PE. - no recent travel, no rash to suggest tick borne illness. - patient has family from [place], but was [place] the [place] and has lived here her whole life. - EBV, Parvovirus serologies returned both with IgG positive but IgM negative - with negative workup, more likely represents HLH or MAS as noted above. - blood cultures 03/19 with staph species in 02/09 so likely contaminant, repeat on 03/23 neg at 24 hours 2. Pancytopenia - secondary to problem #1 noted above. - continue to follow daily 3. Elevated transaminase levels - Abdominal CT without biliary pathology. - secondary to problem #1 above. 4. Acute hyponatremia - in setting of hypovolemic from vomiting. - continue NS, improved on repeat labs to 131 today from 126. 5. Acute agitation, resolved - patient with delirium following steroids, required precedex drip overnight but now weaned off - now off seroquel 6. Severe Acute Protein Calorie Malnutrition r/t inadequate oral intake aeb 9.1% unintentional weight loss in <3mo (severe), 0-50% EER x5d during hospitalization, MNA 6 (malnourished), pt with housing insecurity and and borderline low BMI for age. - started TF via Dobhoff on 03/25 Code: Full, surrogate decision maker is patient's friend Francisca I have utilized all available immediate resources to obtain, update, or review the patient's current medications. Dispo: Pending transfer and accepted at pending bed availability. Declined by . COVID-19 COVID-19 status: Negative Time Spent With Patient Critical Care time: I spent a total of [] minutes of critical care time on this patient's care today; this time is exclusive of procedural time. Quality VTE Deep Vein Thrombosis/Pulmonary Embolism Present on Admission: No
[2022-03-26 09:20] VITALS: BP 124/57; PULSE 125; RESP 22; TEMP 36.9; O2SAT 99
--- NOTE | 2022-03-26 09:23 | PM.DS.1 ---
History of Present Illness History of Present Illness Date Patient Seen: 03/26/22 Chief complaint: 5 days vomitting, hx of RA, lethargic Narrative: This is a 22 year old female with PMH of Rheumatoid arthritis, not currently on medications who presents with 5 days of diffuse joint pains, abdominal pain, back pain, weakness, and fever. Patient states she developed fevers with nausea, vomiting, joint pains, bilateral lower quadrant abdominal pain. She has continued to feel ill, worsening to development of cough with pleuritic type chest pain and dyspnea, though her dyspnea is mild. She denies sick contacts or recent travel. She denies rash. No diarrhea and has not had a bowel movement for about 5 days as well. No dysuria, urinary frequency, no vaginal bleeding or discharge. In the emergency room, patient was febrile to 102.9 F, hypotensive but responded to IV fluids. The remainder of her vitals were unremarkable. Abdominal CT was unremarkable except for periportal edema. Lab evaluation notable for pancytopenia, hyponatremia, and mild transaminitis with AST > ALT. Lipase elevated at 445, Procalcitonin 1.17. COVID, flu, RSV were negative, UA was not indicative of infection. Patient was admitted for further management of presumed sepsis, with possible pneumonia. 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 - Patient with splenomegaly on imaging, lymphadenopathy on imaging, ferritin >5000, pancytopenia, mild transaminitis. Previously admitted for 1 month at age 17-18 with similar presentation, discharge summary states diagnosis of Adult onset Still's disease, but may also be rheumatoid arthritis. Highly suspect HLH or MAS, meets at least 4/9 criteria for HLH (dx usually is 5 or more), pending NK cell activity. - Elevated ESR at 99 and CRP 2.7 on admission. - For HLH, Fibrinogen 234, triglycerides 166, LDH 1418. NK cell function was normal but low absolute CD3+ and CD25+ lymphs. - RF 16.9. DENIA, CCP, and NK cell function pending. - see infectious workup below in possible sepsis - patient requires transfer for guided therapy for HLH / MAS with anakinra and steroids. Anakinra not available at [facility]. - started pulse dose steroids 02/17/21 for 3 days 1000 mg daily. -spoke with endoscopy specialty technician at 03/22 who accepted patient for transfer, now awaiting bed availability 2. Possible (less likely) Sepsis, possible pneumonia with hypotension, thrombocytopenia - febrile to near 103 in the ER with hypotension. given zosyn and sepsis bolusing in the ER. Vague joint pains with abdominal, chest pain, and shortness of breath. Thus far infectious workup does not reveal a definitive source. LP performed which showed 1 WBC, 0 RBC. Meningitis panel PCR negative. LP was performed as patient reported a history of being treated for meningitis to rule out viral encephalitis. - HIV negative and hepatitis panel negative thus far. - continue ceftriaxone, azithomycin for possible pneumonia with given symptoms of chest pain and shortness of breath. - TTE unremarkable with no pericardial thickening or effusion. - admitted to ICU with hypotension in the setting of sepsis, has been stable since admission - D-dimer 06649 and repeat 22648, CTA negative for PE. - no recent travel, no rash to suggest tick borne illness. - patient has family from [place], but was [place] and has lived here her whole life. - EBV, Parvovirus serologies returned both with IgG positive but IgM negative - with negative workup, more likely represents HLH or MAS as noted above. - blood cultures 03/19 with staph species in 02/09 so likely contaminant, repeat on 03/23 neg at 48 hours 2. Pancytopenia - secondary to problem #1 noted above. - continue to follow daily 3. Elevated transaminase levels - Abdominal CT without biliary pathology. - secondary to problem #1 above. 4. Acute hyponatremia - in setting of hypovolemic from vomiting. - continue NS - 128 prior to discharge 5. Acute agitation, resolved - patient with delirium following steroids, required precedex drip initially but now weaned off - now off seroquel 6. Severe Acute Protein Calorie Malnutrition r/t inadequate oral intake aeb 9.1% unintentional weight loss in <3mo (severe), 0-50% EER x5d during hospitalization, MNA 6 (malnourished), pt with housing insecurity and and borderline low BMI for age. - started TF via [place] on 03/25 Code: Full, surrogate decision maker is patient's friend [place] Hospital Course: Accepted to under hospitalist Dr. Diaz. See above problem list. Time Spent with Patient Time spent: Greater than 30 minutes Exam Vital Signs (past 8 hours): - 03/26/22 04:49 Temperature 99.1 F Pulse Rate 133 H Respiratory Rate 16 Blood Pressure 114/58 L Pulse Oximetry 100 Oxygen Flow Rate 0 Oxygen Delivery Method Room Air Oxygen Flow Rate 0 Narrative Exam Narrative: General:?Tall, thin female in no acute distress, but acutely ill. Sleepy. [place] in place. HEENT:? Normocephalic, atraumatic, extraocular muscles intact, oral pharynx is clear and mucous membranes are moist today Neck: supple and symmetric, trachea is midline, no cervical adenopathy. Chest:? Normal AP diameter and contour without kyphoscoliosis, no tachypnea, equal chest rise bilaterally. Lungs:?CTA b/l. Cardio:?RRR no m/r/g. Abdomen: soft, non-distended, non-tender Musculoskeletal:? Muscle strength and tone are equal within normal limits, no deformity. Extremities: No edema or joint effusions. No cyanosis or clubbing. Skin:? Pale,? Warm to touch,dry and intact without rashes, ulcerations or petechiae.? Neuro:? Alert and orientated x3,? sensation to touch intact in all extremities, no gross deficits noted of cranial nerves. Psych:? Patient has a well-kept appearance, appropriate affect, mental status attitude thought context and judgment are appropriate for age. Objective Labs 03/26/22 05:00 03/26/22 05:00 Labs: Laboratory Results - last 24 hr 03/21/22 03/25/22 03/26/22 04:07 15:15 05:00 WBC RBC Hgb Hct MCV MCH MCHC RDW Plt Count Neut % (Auto) Lymph % (Auto) [place] % (Auto) Eos % (Auto) Baso % (Auto) Neut # (Auto) Lymph # (Auto) [place] # (Auto) Eos # (Auto) Baso # (Auto) Sodium 128 L Potassium 3.7 3.7 Chloride 94 L Carbon Dioxide 29 BUN 6 L Creatinine 0.45 L Estimated GFR > 60 BUN/Creatinine Ratio 13.3 Glucose 108 H Calcium 7.2 L Magnesium 1.5 L Total Bilirubin 1.2 AST 138 H ALT 120 H Alkaline Phosphatase 91 Total Protein 7.2 Albumin 3.1 L Globulin 4.1 Albumin/Globulin Ratio 0.8 L Anti-Nuclear Antibody Positive A DENIA Homogeneous Pattern TNP DENIA Nucleolar Pattern TNP DENIA Spindle [place] Pattern TNP DENIA Midbody Pattern TNP EDNIA Centriole Pattern TNP DENIA Nuclear Dot Pattern TNP DENIA PCNA Pattern TNP DENIA Nuclear Membr Pat TNP DENIA Speckled Pattern >1:1280 A DENIA Centromere Pattern TNP DENIA Comment Comment 03/26/22 03/26/22 05:00 06:51 WBC 6.1 RBC 2.79 L Hgb 7.8 L Hct 23.3 L MCV 83.4 MCH 28.0 MCHC 33.5 RDW 15.7 H Plt Count 107 L Neut % (Auto) 67.7 Lymph % (Auto) 28.1 [place] % (Auto) 3.3 Eos % (Auto) 0.0 L Baso % (Auto) 0.9 Neut # (Auto) 4100 Lymph # (Auto) 1700 [place] # (Auto) 200 Eos # (Auto) 0 Baso # (Auto) 100 Sodium Potassium Chloride Carbon Dioxide BUN Creatinine Estimated GFR BUN/Creatinine Ratio Glucose Calcium Magnesium 2.3 Total Bilirubin AST ALT Alkaline Phosphatase Total Protein Albumin Globulin Albumin/Globulin Ratio Anti-Nuclear Antibody DENIA Homogeneous Pattern DENIA Nucleolar Pattern DENIA Spindle Danica Pattern DENIA Midbody Pattern DENIA Centriole Pattern DENIA Nuclear Dot Pattern DENIA PCNA Pattern DENIA Nuclear Membr Pat DENIA Speckled Pattern DENIA Centromere Pattern DENIA Comment [facility] Medical History 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 Acute encephalopathy, likely HLH/MAS, Acute -requiring immediate transfer to facility of higher level of care -patient requires rapid evaluation for organ involvement including bone marrow insufficiency, liver abnormalities, neurological involvement and immune activation-all of which [facility] lacks the medical capabilities to complete at this time. -stat CBC, CMP, Mag, fibrinogen, ferritin, RF, LDH have been ordered, antinuclear antibody, and reference tests are pending (send-out labs), head CT, -patient has removed her PICC line, is confused and disorientated unaware of self place time, causing self harm, placed on 1:1 monitoring, Sz precautions, Precedex drip -change to ICU status, tele crime prevention police officer consult Dr. Ji-recommended immediate transfer. -Called Placed to transfer center/manager express consult: Dr. Kennedy earlier today had consulted with rheumatology and hematology regarding transfer, they currently have the patients information regarding an open transfer case.- pending accepting physician call for immediate transfer 2. 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 ?- Patient with splenomegaly on imaging, lymphadenopathy on imaging, ferritin >5000, pancytopenia, mild transaminitis. Previously admitted for 1 month at age 17-18 with similar presentation, discharge summary states diagnosis of Adult onset Still's disease, but may also be rheumatoid arthritis. Highly suspect HLH or MAS, meets at least 4/9 criteria for HLH (dx usually is 5 or more), pending NK cell activity. ?- Elevated ESR at 99 and CRP 2.7 on admission. ?- For HLH, Fibrinogen 234, triglycerides 166, LDH 1418. NK cell function pending. ?- RF 16.9. DENIA, CCP, and NK cell function pending. ?- see infectious workup below in possible sepsis - LP initial results were negative, some labs are still pending. ?- patient requires transfer for guided therapy for HLH / MAS with anakinra and steroids. Anakinra not available at [facility]. Consider further options including prescribing as an outpatient and having her advocate bring in medications. ?- started pulse dose steroids 02/17/21 for 3 days 1000 mg daily. 3. . Possible (less likely) Sepsis, possible pneumonia with hypotension, thrombocytopenia - febrile to near 103 in the ER with hypotension. given zosyn and sepsis bolusing in the ER. Vague joint pains with abdominal, chest pain, and shortness of breath. Thus far infectious workup does not reveal a definitive source. LP performed which showed 1 WBC, 0 RBC. Meningitis panel PCR negative. LP was performed as patient reported a history of being treated for meningitis to rule out viral encephalitis. ?- HIV negative and hepatitis panel negative thus far. - continue ceftriaxone, azithomycin for possible pneumonia with given symptoms of chest pain and shortness of breath. ?- TTE unremarkable with no pericardial thickening or effusion. ?- admitted to ICU with hypotension in the setting of sepsis, has been stable since admission, will downgrade to the floor today. ?- D-dimer 46760, CTA negative for PE. ?- no recent travel, no rash to suggest tick borne illness. ?- patient has family from [place], but was [place] the [place] and has lived here her whole life. ?- Studies pending: EBV, Parvovirus serologies. ?- with negative workup, more likely represents HLH or MAS as noted above. 4. Pancytopenia ?- secondary to problem #1 noted above. ?- continue to follow daily 5. Elevated transaminase levels ?- Abdominal CT without biliary pathology. ?- secondary to problem #1 above. 6. Acute hyponatremia -in setting of hypovolemic from vomiting. -continue NS, improved on repeat labs to 131 today from 126. Plan of Treatment: Transfer to facility with a higher level care: Discharge Plan Discharge Plan Disposition: er [facility] Hospital Discharge Health Status Health Concerns: Adult onset Still's disease. High clinical concern for HLH/MSA-high risk for seizures, multi-organ failure, morbidity and mortality. Quality VTE Deep Vein Thrombosis/Pulmonary Embolism Present on Admission: No
[2022-03-26] MEDS: OLANZapine ODT 10 MG TAB 5 MG PO (09:27)
[2022-03-26] MEDS: ACETAMINOPHEN 325 MG TABLET 650 MG PO (09:28)
[2022-03-26] MEDS: ENOXAPARIN 40 MG/0.4 ML SYRINGE SUBCUT (09:31)
[2022-03-26 10:28] LABS: COVID19 -Nasal RAPID Negative (Negative)
--- NOTE | 2022-03-26 12:41 | PC.NURSE ---
Pt discharged to [facility] at 1015, escorted off floor on stretcher, accompanied by ambulance staff and family. Midline IV to LUE infusing bolus, discharge information included in packet sent with patient. Report called to Madeline at receiving hospital at 1200. All belongings left the floor with patient.
== END 2022-03-26 10:30 | disposition short-term general hospital (02) | DRG 720 ==
LOC: ED 13:31 → AC 13:33 → ICU 13:58
PROVIDERS: Nurse Practitioner Family; Student in an Organized Health Care Education/Training Program; Admitting Provider Internal Medicine; Emergency Provider Emergency Medicine; Referring Provider Emergency Medicine; Visit Provider Internal Medicine
DX: A41.9 Sepsis, unspecified organism (principal); M06.1 Adult-onset Still's disease; J18.9 Pneumonia, unspecified organism; D61.818 Other pancytopenia; E87.1 Hypo-osmolality and hyponatremia; M06.9 Rheumatoid arthritis, unspecified; R45.1 Restlessness and agitation; E43 Unspecified severe protein-calorie malnutrition; D76.1 Hemophagocytic lymphohistiocytosis; Z20.822 Contact with and (suspected) exposure to COVID-19; Z87.891 Personal history of nicotine dependence; Z68.1 Body mass index [BMI] 19.9 or less, adult
CPT/HCPCS: 0241U; 36415; 36592; 70450; 71045; 71275; 74018; 74177; 80053; 80305; 81001; 82728; 82945; 82962; 83605; 83615; 83690; 83735; 84132; 84145; 84157; 84478; 84703; 85007; 85025; 85379; 85384; 85610; 85651; 85730; 86038; 86140; 86200; 86430; 86664; 86665; 86704; 86706; 86708; 86747; 86803; 86850; 86900; 86901; 87040; 87070; 87150; 87205; 87340; 87389; 87635; 87797; 87798; 89051; 93005; 93010; 93306; 96365; 96367; 96375; 99285; 99291; C9803; J0131; J0696; J1170; J1630; J1650; J2060; J2270; J2405; J2543; J2930; J3475; Q9967

== ENCOUNTER 2022-04-07 12:07 | Emergency (ER) | payer OTHER, MEDICAID, SELFPAY ==
[2022-03-19 14:49] VITALS: BMI 18.8
[2022-04-07 12:17] VITALS: BP 110/74; PULSE 82; RESP 18; TEMP 36.7; O2SAT 100; BMI 17.3
[2022-04-07 12:59] LABS: Add Manual Diff / Slide Review NO; Basophils Absolute Auto 100 /uL (0-100); Basophils Percent Auto 1.4 % (0-2); Eosinophils Absolute Auto 0 /uL (0-450); Eosinophils Percent Auto 0.3 % (2-4); Hemoglobin 8.9 g/dL (12.0-16.0); Lymphocytes Absolute Auto 1500 /uL (1100-4500); Lymphocytes Percent Auto 33.7 % (25-40); Mean Corpuscular HGB Conc 33.1 % (30-36); Mean Corpuscular Hemoglobin 29.3 PG (26-34); Mean Corpuscular Volume 88.7 fL (80-100); Monocytes Absolute Auto 600 /uL (0-900); Monocytes Percent Auto 12.9 % (3-14); Neutrophils Absolute Auto 2200 /uL (1500-7000); Neutrophils Percent Auto 51.7 % (50-75); Platelet Count 306 X10^3/uL (150-400); Red Blood Cell Count 3.05 X10^6/uL (4.0-5.2); Red Cell Distribution Width 19.2 % (11.6-14.8); White Blood Cell Count 4.3 X10^3/uL (4.5-11.0)
[2022-04-07 13:17] LABS: Alanine Aminotransferase 64 IU/L (<35); Albumin 3.8 g/dL (3.5-5.0); Alkaline Phosphatase 56 U/L (38-126); Aspartate Aminotransferase 58 IU/L (14-36); BUN Creatinine Ratio 33.3 (6-22); Bilirubin Total 0.5 mg/dL (0.2-1.3); Blood Urea Nitrogen 14 mg/dL (7-17); Calcium 8.9 mg/dL (8.4-10.2); Carbon Dioxide 27 mmol/L (22-32); Chloride 105 mmol/L (98-107); Estimated Glomerular Filt Rate > 60 mL/min (>60); Globulin 3.9 g/dL (1.7-4.1); Glucose 94 mg/dL (70-100); HEMOLYSIS 34 (0-50); Lipase 300 U/L (23-300); Potassium 4.1 mmol/L (3.4-5.1); Sodium 138 mmol/L (137-145); Total Protein 7.7 g/dL (6.3-8.2)
--- NOTE | 2022-04-07 13:28 | DI.CT.S_ITS ---
PROCEDURE: CT ABDOMEN PELVIS W CON INDICATIONS: RLQ pain/tender c/f appendicitis, nephrolithiasis, pyelo? TECHNIQUE: After the administration of intravenous contrast, axial sections acquired from the lung bases to the pubic symphysis. Coronal and sagittal reformats were performed. For radiation dose reduction, the following was used: automated exposure control, adjustment of mA and/or kV according to patient size. COMPARISON: [facility], CT, CT ABDOMEN PELVIS W CON, 03/19/2022, 12:39. FINDINGS: Image quality: Excellent. Lung bases: Lung bases are clear. Heart size is normal. Solid organs: Liver: The liver has no mass or intrahepatic biliary ductal dilatation. The portal vein and hepatic veins are patent. Biliary: The gallbladder has no gallstones, pericholecystic fluid, gallbladder wall thickening, or surrounding inflammatory change. Pancreas: The pancreas has no mass or ductal dilatation. There is no surrounding inflammation. Spleen: Normal size. There are no masses. Adrenals: No hypertrophy or nodules. Kidneys: No obstructive calculus or hydronephrosis. No solid mass. No cystic mass. Peritoneum and bowel: The distal esophagus and stomach are normal. The small bowel has a normal caliber and appearance. The terminal ileum is normal. The large bowel has increased stool throughout consistent with constipation.. The appendix is normal. No free fluid or air. Nodes and vessels: No retroperitoneal or mesenteric adenopathy by size criteria. Aorta and inferior vena cava are normal in size. Miscellaneous: No abdominal wall mass or hernia. PELVIS: Genitourinary: The bladder has no wall thickening or mass. No bladder calcifications. Bones: No suspicious bony lesions. No vertebral body compression fractures. Leftward curvature of the thoracolumbar spine. IMPRESSION: 1. No acute abdominal or pelvic abnormality. 2. Normal appendix. 3. No nephroureterolithiasis. 4. Constipation. Dictated by: Parviz Yusuf M.D. on 04/07/2022 at 14:04 Approved by: Parviz Yusuf M.D. on 04/07/2022 at 14:08
--- NOTE | 2022-04-07 13:31 | ED_ITS ---
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 She had a small bowel movement this morning which she states was firm and Endorses feeling constipated with bloating. She denies fever or chills. She states that her menstrual cycles approximately 1 month late and she denies abnormal vaginal discharge. She states she is not , thinks that she is having adverse side effects to the prednisone that she is on. She has history of cholecystectomy approximately 10 years ago. Denies pelvic pain. Endorses right-sided low back pain/flank pain to palpation. Related Data Previous Rx's Medication Instructions Recorded omeprazole 20 mg capsule,delayed 20 mg PO DAILY #30 caps 04/07/22 release ondansetron 4 mg disintegrating 4 mg PO Q8HR #10 tabs 04/07/22 tablet polyethylene glycol 3350 17 17 g PO DAILY #238 grams 04/07/22 gram/dose oral powder (Miralax) Allergies Allergy/AdvReac Type Severity Reaction Status Date / Time ketorolac [From Toradol] AdvReac tingling Verified 04/07/22 12:23 and numbness Review of Systems Review of Systems ROS Unobtainable: All systems reviewed & are unremarkable except as noted in HPI and below Patient History Medical History 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 General: cooperative, comfortable, in mild acute distress, well groomed HEENT: symmetrical facial expressions, dry mucous membranes Cardiovascular: regular rate and rhythm, no peripheral edema, warm extremities Respiratory: normal effort, able to speak in complete sentences, without wheezing, stridor, or abnormal breath sounds. No retractions or tachypnea. GI: abdomen soft, Right-sided CVAT to palpation, tender over the right lower quadrant, rebound tenderness, nontender over right ovary but mildly tender over left, could have been rebound, mild tenderness over her periumbilical region and right upper quadrant. nondistended, without masses MSK: Ambulatory with abdominal guarding, neurovascularly intact, no weakness, normal tone Skin: brisk capillary refill, without pallor or erythema Neuro: normal speech and cognition, A&O x3, clear speech Psych: mental status is grossly normal, congruent mood, normal affect, pleasant and cooperative Initial Vital Signs Initial Vital Signs: Vital Signs Temperature 98.0 F 04/07/22 12:17 Pulse Rate 82 04/07/22 12:17 Respiratory Rate 18 04/07/22 12:17 Blood Pressure 110/74 04/07/22 12:17 Pulse Oximetry 100 04/07/22 12:17 Oxygen Delivery Method Room Air 04/07/22 12:17 Course Orders Ordered: ED Orders 04/07/22 12:30 CRP [C-Reactive Protein Quant] Stat Complete Blood Count AUTO DIFF Stat Comprehensive Metabolic Panel Stat Lactate (Lactic Acid) Stat Lipase Stat 04/07/22 13:00 Ictotest Urine Stat Urine Microscopic Stat 04/07/22 13:28 CT abdomen pelvis w con Stat Ondansetron HCl (Ondansetron 4 Mg/2 Ml Inj) 4 mg IV NOW PRN PRN Reason: Nausea And Vomiting Last Admin: 04/07/22 14:21 Dose: 4 mg Documented By: OW Discontinued Medications Hydromorphone HCl (Hydromorphone 0.5 Mg Inj) 0.5 mg IV NOW ONE Stop: 04/07/22 13:44 Last Admin: 04/07/22 14:22 Dose: 0.5 mg Documented By: OW Sodium Chloride (Normal Saline 0.9%) 1,000 mls @ 1,000 mls/hr IV BOLUS ONE Stop: 04/07/22 14:27 Last Admin: 04/07/22 14:21 Dose: 1,000 mls/hr Documented By: OW Pantoprazole Sodium (Pantoprazole 40 Mg Vial) 20 mg IV NOW ONE Stop: 04/07/22 13:44 Last Admin: 04/07/22 14:22 Dose: 20 mg Documented By: OW Polyethylene Glycol (Polyethylene Glycol 3350 17 Gm Powd.Pack) 17 gm PO NOW ONE Stop: 04/07/22 14:18 Vital Signs Vital signs: Vital Signs - 8 hr 04/07/22 12:17 Temperature 98.0 F Pulse Rate 82 Respiratory Rate 18 Blood Pressure 110/74 Pulse Oximetry 100 Oxygen Delivery Method Room Air MDM - Abdominal Pain Lab Data 04/07/22 12:30 04/07/22 12:30 Labs: Lab Results 04/07/22 04/07/22 04/07/22 Range/Units 12:30 12:30 12:30 WBC 4.3 L (4.5-11.0) X10^3/uL RBC 3.05 L (4.0-5.2) X10^6/uL Hgb 8.9 L (12.0-16.0) g/dL Hct 27.0 L (36-46) % MCV 88.7 (80-100) fL MCH 29.3 (26-34) PG MCHC 33.1 (30-36) % RDW 19.2 H (11.6-14.8) % Plt Count 306 (150-400) X10^3/uL Neut % (Auto) 51.7 (50-75) % Lymph % (Auto) 33.7 (25-40) % [place] % (Auto) 12.9 (3-14) % Eos % (Auto) 0.3 L (2-4) % Baso % (Auto) 1.4 (0-2) % Neut # (Auto) 2200 (5961-2875) /uL Lymph # (Auto) 1500 (4571-9980) /uL [place] # (Auto) 600 (0-900) /uL Eos # (Auto) 0 (0-450) /uL Baso # (Auto) 100 (0-100) /uL Sodium 138 (137-145) mmol/L Potassium 4.1 (3.4-5.1) mmol/L Chloride 105 (98-107) mmol/L Carbon Dioxide 27 (22-32) mmol/L BUN 14 (7-17) mg/dL Creatinine 0.42 L (0.52-1.04) mg/dL Estimated GFR > 60 (>60) mL/min BUN/Creatinine Ratio 33.3 H (6-22) Glucose 94 (70-100) mg/dL Lactate 1.7 (0.7-2.1) mmol/L Calcium 8.9 (8.4-10.2) mg/dL Total Bilirubin 0.5 (0.2-1.3) mg/dL AST 58 H (14-36) IU/L ALT 64 H (<35) IU/L Alkaline Phosphatase 56 (38-126) U/L C-Reactive Protein (<1.0) mg/dL Total Protein 7.7 (6.3-8.2) g/dL Albumin 3.8 (3.5-5.0) g/dL Globulin 3.9 (1.7-4.1) g/dL Albumin/Globulin Ratio 1.0 (1.0-2.8) Lipase 300 (23-300) U/L Ur Bilirubin Confirm (Negative) Urine RBC (0-5/HPF) Urine WBC (0-5/HPF) Amorphous Sediment Urine Bacteria (None) Ur Culture Indicated? 04/07/22 04/07/22 04/07/22 Range/Units 12:30 13:00 13:00 WBC (4.5-11.0) X10^3/uL RBC (4.0-5.2) X10^6/uL Hgb (12.0-16.0) g/dL Hct (36-46) % MCV (80-100) fL MCH (26-34) PG MCHC (30-36) % RDW (11.6-14.8) % Plt Count (150-400) X10^3/uL Neut % (Auto) (50-75) % Lymph % (Auto) (25-40) % [place] % (Auto) (3-14) % Eos % (Auto) (2-4) % Baso % (Auto) (0-2) % Neut # (Auto) (3402-3541) /uL Lymph # (Auto) (2388-0366) /uL [place] # (Auto) (0-900) /uL Eos # (Auto) (0-450) /uL Baso # (Auto) (0-100) /uL Sodium (137-145) mmol/L Potassium (3.4-5.1) mmol/L Chloride (98-107) mmol/L Carbon Dioxide (22-32) mmol/L BUN (7-17) mg/dL Creatinine (0.52-1.04) mg/dL Estimated GFR (>60) mL/min BUN/Creatinine Ratio (6-22) Glucose (70-100) mg/dL Lactate (0.7-2.1) mmol/L Calcium (8.4-10.2) mg/dL Total Bilirubin (0.2-1.3) mg/dL AST (14-36) IU/L ALT (<35) IU/L Alkaline Phosphatase (38-126) U/L C-Reactive Protein < 0.5 (<1.0) mg/dL Total Protein (6.3-8.2) g/dL Albumin (3.5-5.0) g/dL Globulin (1.7-4.1) g/dL Albumin/Globulin Ratio (1.0-2.8) Lipase (23-300) U/L Ur Bilirubin Confirm Negative (Negative) Urine RBC None seen (0-5/HPF) Urine WBC None seen (0-5/HPF) Amorphous Sediment 3+ Urine Bacteria None seen (None) Ur Culture Indicated? Cult not indicated Point of care testing: Point of Care Testing Test Results Negative Urine Dip Bedside Urine Glucose Negative Bedside Urine Bilirubin + 1 Bedside Urine Ketone - Negative Urine Specific [place] 1.020 Bedside Urine Occult Blood - Negative Bedside Urine pH 7.5 Bedside Urine Protein - Negative Bedside Urine Urobilinogen - Negative Bedside Urine Nitrite - Negative Bedside Urine Leukocytes - Negative Esterase Imaging Data CT scan - abdomen/pelvis: Radiologist's Impression: PROCEDURE:? CT ABDOMEN PELVIS W CON ? INDICATIONS:? RLQ pain/tender c/f appendicitis, nephrolithiasis, pyelo? ? TECHNIQUE:? After the administration of intravenous contrast, axial sections acquired from the lung bases to the pubic symphysis.? Coronal and sagittal reformats were performed.? For radiation dose reduction, the following was used:? automated exposure control, adjustment of mA and/or kV according to patient size.? ? COMPARISON:? [facility], CT, CT ABDOMEN PELVIS W CON, 03/19/2022, 12:39. ? FINDINGS: Image quality:? Excellent.? ? Lung bases:? Lung bases are clear.? Heart size is normal. ? Solid organs:? Liver: The liver has no mass or intrahepatic biliary ductal dilatation. The portal vein and hepatic veins are patent. Biliary: The gallbladder has no gallstones, pericholecystic fluid, gallbladder wall thickening, or surrounding inflammatory change. Pancreas: The pancreas has no mass or ductal dilatation. There is no surrounding inflammation. Spleen: Normal size. There are no masses. Adrenals: No hypertrophy or nodules. Kidneys: No obstructive calculus or hydronephrosis.? No solid mass. No cystic mass. ? Peritoneum and bowel:? The distal esophagus and stomach are normal.? The small bowel has a normal caliber and appearance. The terminal ileum is normal. The large bowel has increased stool throughout consistent with constipation..? The appendix is normal. No free fluid or air.? ? Nodes and vessels:? No retroperitoneal or mesenteric adenopathy by size criteria.? Aorta and inferior vena cava are normal in size.? ? Miscellaneous:? No abdominal wall mass or hernia. ? PELVIS:? Genitourinary:? The bladder has no wall thickening or mass. No bladder calcifications. ? Bones:? No suspicious bony lesions.? No vertebral body compression fractures.? Leftward curvature of the thoracolumbar spine. ? IMPRESSION: 1. No acute abdominal or pelvic abnormality. 2. Normal appendix. 3. No nephroureterolithiasis. 4. Constipation.? ? Dictated by: Parviz Yusuf M.D. on 04/07/2022 at 14:04 ? ? Approved by: Parviz Yusuf M.D. on 04/07/2022 at 14:08 ? MDM Narrative Medical decision making narrative: Chief Complaint: Abdominal pain, prednisone Independent historian: Patient Differential diagnoses include but are not limited to: Bowel obstruction, perforated viscus, acute cystitis, pyelonephritis, nephrolithiasis, appendicitis, cholangitis, pelvic infection, constipation, gastritis I have independently reviewed the patient's vital signs and nursing notes as well as prior records if available. Pertinent lab findings reviewed: CBC shows improved anemia from prior with an H&H of 8.9 and 27 compared to 7.8 and 23.3, mild drop of her WBC from 6.1-4.3 now on prednisone 60 mg daily, without thrombocytopenia, no electrolyte abnormalities, normal creatinine of 0.42, no elevation to liver enzymes, they are steadily improving compared with prior, urine microscopy is negative for abnormality. Pertinent Imaging reviewed: CT ABD/Pelvis Clinical decision rules or scores evaluated: Manjarrez score 6 Course of care: The patient, she appears mildly dry, was tender over right lower quadrant but this could also be urinary tract pain, ordered normal saline fluid bolus, additional lab work including inflammatory markers, CT abdomen pelvis for evaluation of appendicitis versus bowel abnormalities versus urinary tract infection/nephrolithiasis. For pain ordered hydromorphone and Protonix. Patient states that she is feeling better after her pain medication, CT came back negative for acute abdominal or pelvic abnormality with a normal appendix and without obstructive uropathy, it does show constipation and this is consistent with her history constipation and chronic steroid use. Patient was given MiraLax for this, she is afebrile serial abdominal with improvement in her pain. Encouraged patient's stay hydrated, take MiraLax daily and twice a day until she has a soft stool, omeprazole daily to prevent ulcer and Zofran as needed for nausea and vomiting. She is nontoxic appearing, appears to be feeling better, and understands to follow-up with her rn correctional as he is her only provider at this time for recheck. Social considerations that may affect disposition: none Questions are addressed and there is agreement with the plan and for follow-up. Patient is appropriate for outpatient management. MIPS: This encounter doesn't have any diagnosis' associated with MIPS criteria. Discharge Plan Departure Patient Disposition: Home Clinical Impression: Adult-onset Still's disease, Immunosuppression due to chronic steroid use Constipation Qualifiers: Constipation type: drug induced constipation Qualified Code(s): K59.03 - Drug induced constipation Instructions: Constipation Activity Restrictions/Additional Instructions: *You have been diagnosed with no abnormal findings in abdomen or pelvis, it showed a normal appendix, quite a bit of stool but no bowel obstruction or perforation of the colon. Your urine does not show infection, please focus on hydration. The prednisone can cause constipation,/GERD symptoms worsening of your menstrual cycle, bloating or swelling of your abdomen or other areas. It can also cause inflammation of your stomach and the stomach lining called gastritis and you can have bile reflux. Please take omeprazole prophylactically to prevent this from happening since you are on chronic steroid use. It can erode the mucus layer in your stomach leading need to stomach pain and ulcer. Your lab work has improved, I will send this to your rn correctional. Thank you for coming in for evaluation and I hope you feel better soon. Your urine did not come back positive for infection either so I have prescribed for you MiraLax to take daily so that you can have soft stools, it is okay to use this twice a day until you can titrate for a soft stool daily. Use Zofran every 8 hours as needed for nausea and vomiting, omeprazole take 1st thing in the morning daily to prevent ulcer. Please schedule follow-up with your rn correctional, if you have another new symptom, fever chills, please come back for another evaluation. There is always a chance that it could be an early appendicitis or other finding that did not show up today. Thank you for coming in for evaluation. *What to do: *Please continue to take your regular medications as directed. [ x] New medication prescriptions sent to your pharmacy: [Matthieu Leslie ] [ ] New medication written as a paper prescription [ ] No new medications given *Please follow up with your primary care provider in 2-3 days, call for an appointment. Let them know you were seen in the Emergency Department and that we asked that you be seen for follow-up. We will electronically transmit a record of today's note if your PCP is in our system *If you do not have a primary care provider please contact [phone] to establish care with one of the [facility] primary care providers. *Return to Emergency Department if you should have any new, worsening, or concerning symptoms, such as [fever greater than 101F, chills, worsening pain, persistent vomiting or other bothersome symptoms]. Prescriptions: New ondansetron 4 mg tablet,disintegrating 4 mg PO Q8HR Qty: 10 0RF polyethylene glycol 3350 [Miralax] 17 gram/dose powder 17 g PO DAILY Qty: 238 0RF omeprazole 20 mg capsule,delayed release(DR/EC) 20 mg PO DAILY Qty: 30 0RF Referrals: Jostin Kern [Other] Stand Alone Forms: Patient Portal/API
[2022-04-07 13:41] LABS: Ictotest Urine Negative (Negative)
[2022-04-07 13:42] LABS: Lactate (Lactic Acid) 1.7 mmol/L (0.7-2.1)
[2022-04-07 13:45] LABS: C-Reactive Protein Quant < 0.5 mg/dL (<1.0)
[2022-04-07] MEDS: SODIUM CHLORIDE 0.9% 1,000 ML 1000 ML IV (14:21)
[2022-04-07] MEDS: ONDANSETRON 4 MG/2 ML INJ IV (14:21)
[2022-04-07] MEDS: HYDROMORPHONE 0.5 MG INJ IV (14:22)
[2022-04-07] MEDS: PANTOPRAZOLE 40 MG VIAL 20 MG IV (14:22)
[2022-04-07 14:34] LABS: Amorphous Sediment Urine 3+; Bacteria Urine None Seen; Culture Indicated Urine Cult Not Indicated; RBC Urine None Seen (0-5/HPF); WBC Urine None Seen (0-5/HPF)
[2022-04-07] MEDS: polyethylene glycoL 3350 17 GM POWD.PACK PO (14:41)
[2022-04-07 14:46] VITALS: BP 97/55; PULSE 74; O2SAT 100
== END 2022-04-07 15:24 | disposition home or self-care (01) ==
PROVIDERS: Emergency Medicine; Emergency Provider Nurse Practitioner Critical Care Medicine
DX: M06.1 Adult-onset Still's disease (principal); D84.821 Immunodeficiency due to drugs; K59.03 Drug induced constipation
CPT/HCPCS: 36415; 74177; 80053; 81003; 81015; 81025; 83605; 83690; 85025; 86140; 96361; 96374; 96375; 99284; C9113; J1170; J2405; Q9967

== ENCOUNTER → 2022-05-25 15:48 | Outpatient (CLI) | payer OTHER, MEDICAID, SELFPAY ==
[2022-03-19 14:49] VITALS: BMI 18.8
[2022-05-25 16:48] LABS: Add Manual Diff / Slide Review NO; Basophils Absolute Auto 0 /uL (0-100); Basophils Percent Auto 0.4 % (0-2); Eosinophils Absolute Auto 0 /uL (0-450); Hematocrit 31.2 % (36-46); Hemoglobin 10.6 g/dL (12.0-16.0); Lymphocytes Absolute Auto 900 /uL (1100-4500); Lymphocytes Percent Auto 26.5 % (25-40); Mean Corpuscular HGB Conc 34.1 % (30-36); Mean Corpuscular Hemoglobin 29.5 PG (26-34); Mean Corpuscular Volume 86.6 fL (80-100); Monocytes Absolute Auto 100 /uL (0-900); Monocytes Percent Auto 2.7 % (3-14); Neutrophils Absolute Auto 2400 /uL (1500-7000); Neutrophils Percent Auto 70.4 % (50-75); Platelet Count 410 X10^3/uL (150-400); Red Cell Distribution Width 16.7 % (11.6-14.8); White Blood Cell Count 3.5 X10^3/uL (4.5-11.0)
[2022-05-25 17:30] LABS: Alanine Aminotransferase 58 IU/L (<35); Albumin 4.9 g/dL (3.5-5.0); Albumin Globulin Ratio 1.2 (1.0-2.8); Alkaline Phosphatase 56 U/L (38-126); Aspartate Aminotransferase 37 IU/L (14-36); BUN Creatinine Ratio 30.4 (6-22); Bilirubin Total 0.5 mg/dL (0.2-1.3); Blood Urea Nitrogen 17 mg/dL (7-17); C-Reactive Protein Quant 0.5 mg/dL (<1.0); Calcium 9.8 mg/dL (8.4-10.2); Carbon Dioxide 21 mmol/L (22-32); Chloride 103 mmol/L (98-107); Estimated Glomerular Filt Rate > 60 mL/min (>60); Globulin 4.1 g/dL (1.7-4.1); Glucose 88 mg/dL (70-100); HEMOLYSIS < 15 (0-50); Potassium 4.4 mmol/L (3.4-5.1); Sodium 137 mmol/L (137-145)
[2022-05-25 18:00] LABS: Ferritin 10 ng/mL (6-137)
[2022-05-25 19:03] LABS: Erythrocyte Sedimentation Rate 37 MM/HR (0-20)
== END ==
PROVIDERS: Referring Provider Student in an Organized Health Care Education/Training Program; Visit Provider Student in an Organized Health Care Education/Training Program
DX: N06.1 Isolated proteinuria with focal and segmental glomerular lesions (principal)
CPT/HCPCS: 36415; 80053; 82728; 85025; 85651; 86140

== ENCOUNTER 2022-10-01 13:56 | Emergency (ER) | payer OTHER, MEDICAID, SELFPAY ==
[2022-03-19 14:49] VITALS: BMI 18.8
[2022-10-01 14:15] VITALS: BP 112/74; PULSE 97; RESP 17; TEMP 36.8; O2SAT 100; BMI 20.9
--- NOTE | 2022-10-01 14:20 | DI.RAD.S_ITS ---
PROCEDURE: XR CHEST 2V INDICATIONS: sternal pain with cold symptoms TECHNIQUE: 2 views of the chest were acquired. COMPARISON: [facility], CR, XR CHEST 1V, 03/19/2022, 9:59. FINDINGS: Surgical changes and devices: None. Lungs and pleura: Lungs are clear. No pleural effusions or pneumothorax. Mediastinum: Mediastinal contours are normal. Heart size is normal. Bones and chest wall: No suspicious bony abnormalities. Soft tissues appear unremarkable. IMPRESSION: No acute cardiopulmonary process. Dictated by: Rupesh Garcia M.D. on 10/01/2022 at 15:11 Approved by: Rupesh Garcia M.D. on 10/01/2022 at 15:11
[2022-10-01 15:26] LABS: Adenovirus Not Detected (Not Detect); B. parapertussis Not Detected (Not Detecte); Bordetella pertussis Not Detected (Not Detecte); Chlamydophila pneumoniae Not Detected (Not Detect); Coronavirus 229E Not Detected (Not Detect); Coronavirus HKU1 Not Detected (Not Detect); Coronavirus NL 63 Not Detected (Not Detect); Coronavirus OC43 Not Detected (Not Detect); Human Metapneumovirus Not Detected (Not Detect); Human Rhinovirus/Enterovirus Not Detected (Not Detect); Influenza A Not Detected (Not Detect); Influenza B Not Detected (Not Detect); Mycoplasma pneumoniae Not Detected (Not Detect); Parainfluenza Virus 1 Not Detected (Not Detect); Parainfluenza Virus 2 Not Detected (Not Detect); Parainfluenza Virus 3 Not Detected (Not Detect); Parainfluenza Virus 4 Not Detected (Not Detect); Respiratory Syncytial Virus Not Detected (Not Detect); SARS- CoV-2 Not Detected (Not Detecte)
== END 2022-10-01 15:45 | disposition left against medical advice (07) ==
PROVIDERS: Emergency Provider Emergency Medicine
DX: R07.9 Chest pain, unspecified (principal); R53.1 Weakness; Z20.822 Contact with and (suspected) exposure to COVID-19
CPT/HCPCS: 71046; 87633; 99281

== ENCOUNTER → 2022-10-31 10:32 | Outpatient (CLI) | payer OTHER, MEDICAID, SELFPAY ==
[2022-03-19 14:49] VITALS: BMI 18.8
[2022-10-31 11:42] LABS: Add Manual Diff / Slide Review NO; Basophils Absolute Auto 0 /uL (0-100); Basophils Percent Auto 1.1 % (0-2); Eosinophils Absolute Auto 0 /uL (0-450); Eosinophils Percent Auto 0.6 % (2-4); Hemoglobin 11.3 g/dL (12.0-16.0); Lymphocytes Absolute Auto 800 /uL (1100-4500); Lymphocytes Percent Auto 37.9 % (25-40); Mean Corpuscular HGB Conc 33.3 % (30-36); Mean Corpuscular Hemoglobin 28.6 PG (26-34); Mean Corpuscular Volume 85.9 fL (80-100); Monocytes Absolute Auto 200 /uL (0-900); Neutrophils Absolute Auto 1100 /uL (1500-7000); Neutrophils Percent Auto 50.4 % (50-75); Platelet Count 248 X10^3/uL (150-400); Red Blood Cell Count 3.96 X10^6/uL (4.0-5.2); Red Cell Distribution Width 17.5 % (11.6-14.8); White Blood Cell Count 2.2 X10^3/uL (4.5-11.0)
[2022-10-31 12:07] LABS: Hemoglobin A1C% w Est Avg Glu 5.1 % (4.0-6.0)
[2022-10-31 12:20] LABS: Alanine Aminotransferase 25 IU/L (<35); Albumin 4.1 g/dL (3.5-5.0); Albumin Globulin Ratio 1.2 (1.0-2.8); Alkaline Phosphatase 38 U/L (38-126); Aspartate Aminotransferase 31 IU/L (14-36); BUN Creatinine Ratio 25.5 (6-22); Bilirubin Total 0.3 mg/dL (0.2-1.3); Blood Urea Nitrogen 13 mg/dL (7-17); Calcium 9.5 mg/dL (8.4-10.2); Carbon Dioxide 23 mmol/L (22-32); Chloride 104 mmol/L (98-107); Estimated Glomerular Filt Rate > 60 mL/min (>60); Globulin 3.4 g/dL (1.7-4.1); Glucose 70 mg/dL (70-100); HEMOLYSIS < 15 (0-50); Lipase 80 U/L (23-300); Potassium 4.3 mmol/L (3.4-5.1); Sodium 136 mmol/L (137-145); Total Protein 7.5 g/dL (6.3-8.2)
[2022-10-31 16:59] LABS: Free T4, Direct Thyroxine 1.21 ng/dL (0.78-2.19)
== END ==
PROVIDERS: PCP Family Medicine; Referring Provider Family Medicine; Visit Provider Family Medicine
DX: D61.818 Other pancytopenia (principal); R00.2 Palpitations; R10.13 Epigastric pain; M06.1 Adult-onset Still's disease; M06.9 Rheumatoid arthritis, unspecified
CPT/HCPCS: 36415; 80053; 83036; 83690; 84439; 84443; 85025

== ENCOUNTER → 2022-11-17 15:14 | Outpatient (CLI) | payer OTHER, MEDICAID, SELFPAY ==
[2022-03-19 14:49] VITALS: BMI 18.8
== END ==
PROVIDERS: PCP Family Medicine; Referring Provider Family Medicine; Visit Provider Family Medicine
DX: R00.2 Palpitations (principal)
CPT/HCPCS: 93246

== ENCOUNTER 2023-03-05 08:13 | Emergency (ER) | payer OTHER, MEDICAID, SELFPAY ==
[2022-03-19 14:49] VITALS: BMI 18.8
--- NOTE | 2023-03-05 08:38 | ED_ITS ---
HPI - General Adult General Chief complaint: Skin/Abscess/Foreign Body Stated complaint: rt hand pain, discoloration Time Seen by Provider: 03/05/23 08:21 Source: patient Mode of arrival: Ambulatory Limitations: no limitations History of Present Illness HPI narrative: Patient is a 23-year-old female. Has a history of lupus. Does see rheumatology. Is currently on 20 mg of prednisone a day. Has been on this dose for the past month. Is moving to [facility]. Already has an appointment scheduled with the gift shop clerk in 2 weeks when she arrives at that location. She states that over the past couple days she has developed a rash on her hands. It initially started on her right hand but has now moved to the left. Does involve the thumb and some of the lateral aspects of her other fingers. It is mostly in the same spot on both of her hands. It does hurt and itches. She is tried lotion and an [id number] topical steroid cream without much improvement. She states that this morning she noticed bumps in the area. No new lotions. No prolonged exposure to liquids. A rash anywhere else on her body. No fevers. Related Data Home Medications Medication Instructions Recorded Confirmed hydroxychloroquine 200 mg tablet 400 mg PO DAILY 01/31/23 03/04/23 mycophenolate mofetil 500 mg tablet 1,000 mg PO ONCE 01/31/23 03/04/23 cephalexin 500 mg capsule 500 mg PO 3XD 03/04/23 03/04/23 prednisone 10 mg tablet 10 mg PO BID 03/04/23 03/04/23 Previous Rx's Medication Instructions Recorded amitriptyline 10 mg tablet 10 - 20 mg (1 - 2 x 10 mg) PO 01/31/23 DAILY #60 tabs ondansetron 4 mg disintegrating 4 mg PO TID PRN nausea and 01/31/23 tablet vomiting #20 tabs clobetasol 0.05 % topical cream 1 applic topical BID #30 grams 03/04/23 hydrocortisone valerate 0.2 % 1 applic topical BID-QID PRN rash 03/05/23 topical cream #45 grams Allergies Allergy/AdvReac Type Severity Reaction Status Date / Time ketorolac [From Toradol] AdvReac tingling Verified 03/05/23 08:46 and numbness, burning Review of Systems Constitutional Constitutional: Reports system reviewed and no additional complaints, except as documented Musculoskeletal Musculoskeletal: Reports system reviewed and no additional complaints, except as documented Integumentary/Breasts Skin/Breast: Reports system reviewed and no additional complaints, except as documented Neurologic Neurologic: Reports system reviewed and no additional complaints, except as documented Allergic/Immunologic Allergic/Immunologic: Reports system reviewed and no additional complaints, except as documented Patient History Medical History Systemic lupus 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 Rheumatoid arthritis (~2016) Surgical History Anesthesia History of cholecystectomy (~2012) Family History Mother Arthritis Father No pertinent past medical history Social History marital status: unmarried,single number of children: 0 household members: none lives independently: Yes pets and animals: No 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) sexual history: not currently sexually active Smoking Status: Smoker, status unknown alcohol intake: former substance use type: marijuana (cannabis edibles/CBD tincture at night prior to sleep) Type(s) of exercise: none (job at [employer] is physically demanding per patient, so outside of work, does not exercise regularly) Smoking Status: Smoker, status unknown alcohol intake frequency: 0-2 drinks per day Substance Use Type: marijuana Exam Initial Vital Signs Initial Vital Signs: Vital Signs Temperature 98.0 F 03/05/23 08:46 Pulse Rate 101 H 03/05/23 08:46 Respiratory Rate 18 03/05/23 08:46 Blood Pressure 123/73 03/05/23 08:46 Pulse Oximetry 100 03/05/23 08:46 Oxygen Delivery Method Room Air 03/05/23 08:46 Const General: cooperative and healthy appearing HENMT Head: normal to inspection and normocephalic Skin Other: Patient has plaque-like rash located almost in the same spots on both of her hands. It circumferentially involves her thumb and goes down to the thenar eminence. It is also involves several lateral aspects of her fingers on both for hands. Does not specifically involve the palm of her hand. There are no vesicles. No pustules. No erythema. No rash on her ears or head or upper back or torso. Neuro Sensory Exam: no sensory deficits noted Extrem Other: Rash to bilateral hands Course Vital Signs Vital signs: Vital Signs - 8 hr 03/05/23 08:46 Temperature 98.0 F Pulse Rate 101 H Respiratory Rate 18 Blood Pressure 123/73 Pulse Oximetry 100 Oxygen Delivery Method Room Air Medical Decision Making MDM Narrative Medical decision making narrative: She does have a history of lupus. Her rash today is not consistent with cellulitis. I think that it would be very unlikely to have a rash in essentially the same areas on both of her hands that would be consistent with an infection or an allergic reaction. This is most likely a lupus reaction. There was no indication for antibiotics. Patient is reluctant to go up on her oral prednisone because she states that there was a plan in place for her to come down on the prednisone that she was currently taking so that she can go back on her regular infusions. The plan will be to put her on a higher potency steroid cream. She understands that if this does not improve things or her symptoms worsen then she may need to go up on her oral steroids at home. We discussed this. Will have her follow-up with her gift shop clerk when she arrives to her [facility]. She was given return precautions. Discharge Plan Departure Patient Disposition: Home Clinical Impression: Lupus, Rash Instructions: DI for Rash Activity Restrictions/Additional Instructions: I did send a prescription for a steroid cream that is higher potency then which you have been using. Tried to limit the places where you put the cream to only the spots where the rash is located. If your symptoms are not improving within the next 24-48 hours or if your symptoms worsen then stopped using the cream. You may need to go up on your oral steroids like we discussed. Keep your scheduled appointment with your gift shop clerk when you arrive to [facility]. Prescriptions: New hydrocortisone valerate 0.2 % cream 1 applic topical BID-QID PRN (Reason: rash) Qty: 45 2RF No Action prednisone 10 mg tablet 10 mg PO BID cephalexin 500 mg capsule 500 mg PO 3XD clobetasol 0.05 % cream 1 applic topical BID Qty: 30 0RF hydroxychloroquine 200 mg tablet 400 mg PO DAILY mycophenolate mofetil 500 mg tablet 1,000 mg PO ONCE amitriptyline 10 mg tablet 10 - 20 mg PO DAILY Qty: 60 11RF ondansetron 4 mg tablet,disintegrating 4 mg PO TID PRN (Reason: nausea and vomiting) Qty: 20 3RF Referrals: Scottie Ramos DO [Primary Care Provider] - Stand Alone Forms: Patient Portal/API
[2023-03-05 08:46] VITALS: BP 123/73; PULSE 101; RESP 18; TEMP 36.7; O2SAT 100; BMI 18.8
--- NOTE | 2023-03-05 08:58 | PC.NURSE ---
Pt has history of Lupus, scheduled to re establish care with her prior adjunct instructor in the upcoming 2 weeks.
[2023-03-05 09:28] VITALS: BP 113/65; PULSE 96; RESP 16; O2SAT 97
== END 2023-03-05 09:29 | disposition home or self-care (01) ==
PROVIDERS: Emergency Provider Emergency Medicine; PCP Family Medicine
DX: M32.9 Systemic lupus erythematosus, unspecified (principal)
CPT/HCPCS: 99281; 99283